=== PATIENT | female | born 1960 | race Caucasian/White ===

== ENCOUNTER → 2017-08-01 13:04 | Outpatient (CLI) | payer MEDICAID, SELFPAY ==
[2017-08-01 13:00] VITALS: BP 120/52; PULSE 57; RESP 18; TEMP 36.7; O2SAT 94
== END ==
PROVIDERS: Family Provider Family Medicine; PCP Family Medicine
DX: N18.5 Chronic kidney disease, stage 5 (principal); D63.1 Anemia in chronic kidney disease
CPT/HCPCS: 96401; J0885

== ENCOUNTER → 2017-08-08 12:39 | Outpatient (CLI) | payer MEDICAID, SELFPAY ==
[2017-07-25 12:59] VITALS: BMI 20.1
[2017-08-01 13:00] VITALS: BP 120/52
[2017-08-08 12:59] VITALS: BP 165/73; PULSE 78; RESP 24; TEMP 37.3; O2SAT 93; BMI 20.1
[2017-08-08 13:07] LABS: Absolute Lymphocyte Count 0.79 X10^3/ul (0.83-4.51); Absolute Neutrophil Count 6.5 X10^3/uL (2.0-7.7); Basophil# 0.06 X10^3/uL; Basophil% 0.7 % (0-1); Eosinophil# 0.38 X10^3/uL; Eosinophils% 4.7 % (0-5); Hematocrit 29.6 % (37-47); Hemoglobin 8.7 g/dl (12.0-15.0); Lymphocyte # 0.79 X10^3/ul (4.0); Lymphocyte % 9.8 % (19-41); Mean Corp Hgb Conc 29.4 g/gl (32-36); Mean Corpuscular Hgb 22.4 pg (27.0-32.0); Mean Corpuscular Volume 76.3 fL (81-99); Mean Platelet Vol. 8.5 fl (6.2-12.0); Monocyte# 0.38 X10^3/uL; Monocyte% 4.7 % (0-10); Neutrophil # 6.46 X10^3/uL (2.7-7.7); Neutrophil % 79.9 % (47-70); Platelet Count 472 K/mm3 (150-450); RBC Distribution Width CV 19.2 % (11.6-14.6); RBC Distribution Width SD 52.8 fl (35.1-43.9); Red Blood Count 3.88 M/mm3 (4.2-5.4); White Blood Count 8.1 K/mm3 (4.4-11.0)
[2017-08-08 13:09] LABS: POSITIVE COUNT NO; POSITIVE DIFFERENTIAL NO; POSITIVE MORPHOLOGY NO
[2017-08-08 13:28] LABS: Albumin, Serum 3.1 g/dL (3.2-5.0); BUN 73 mg/dL (7-18); BUN/Creat Ratio 21.4 RATIO (10-20); Calcium,Total 8.5 mg/dL (8.5-10.1); Chloride 112 mmol/L (98-107); Creatinine, Serum 3.41 mg/dL (0.55-1.02); EST Glomerular Filtration Rate 15 mL/min (>60); Est Glom Filt Rate - Afr Amer 18 mL/min (>60); Estimated Creatinine Clearance 13.07 ml/min; Ferritin 106 ng/mL (8-252); Glucose 192 mg/dL (74-106); Iron 17 ug/dL (50-170); Iron Binding Capacity,Total 312 ug/dL (250-450); PERCENT IRON SATURATION 5.4 % (15.0-55.0); Phosphorus 5.5 mg/dL (2.5-4.9); Potassium 5.5 mmol/L (3.5-5.1); Sodium Level 139 mmol/L (136-145)
[2017-08-09 08:46] LABS: PTHIN 63.4 pg/mL (18.4-80.1)
== END ==
PROVIDERS: Family Provider Family Medicine; PCP Family Medicine
DX: N18.5 Chronic kidney disease, stage 5 (principal); D63.1 Anemia in chronic kidney disease; N25.81 Secondary hyperparathyroidism of renal origin
CPT/HCPCS: 80069; 82728; 83540; 83550; 83970; 85025; 96372; J0885

== ENCOUNTER → 2017-08-15 12:47 | Outpatient (CLI) | payer MEDICAID, SELFPAY ==
[2017-08-08 12:59] VITALS: BP 165/73; BMI 20.1
[2017-08-15 12:58] VITALS: BP 122/52; PULSE 58; RESP 18; TEMP 36.4; O2SAT 93; BMI 19.5
== END ==
PROVIDERS: Family Provider Family Medicine; PCP Family Medicine
DX: N18.5 Chronic kidney disease, stage 5 (principal); D63.1 Anemia in chronic kidney disease; N25.81 Secondary hyperparathyroidism of renal origin
CPT/HCPCS: 96372; J0885

== ENCOUNTER → 2017-08-22 12:49 | Outpatient (CLI) | payer MEDICAID, SELFPAY ==
[2017-08-22 13:02] VITALS: BP 143/61; PULSE 68; RESP 16; TEMP 36.8
== END ==
PROVIDERS: Family Provider Family Medicine; PCP Family Medicine
DX: N18.5 Chronic kidney disease, stage 5 (principal); D63.1 Anemia in chronic kidney disease; N25.81 Secondary hyperparathyroidism of renal origin
CPT/HCPCS: 96372; J0885

== ENCOUNTER → 2017-08-29 11:42 | Outpatient (CLI) | payer MEDICAID, SELFPAY ==
[2017-08-29 10:32] VITALS: BP 135/61; PULSE 57; RESP 18; TEMP 36.1; O2SAT 97; BMI 19.8
== END ==
PROVIDERS: Family Provider Family Medicine; PCP Family Medicine
DX: N18.5 Chronic kidney disease, stage 5 (principal); D63.1 Anemia in chronic kidney disease; N25.81 Secondary hyperparathyroidism of renal origin
CPT/HCPCS: 96372; J0885

== ENCOUNTER → 2017-09-05 09:54 | Outpatient (CLI) | payer MEDICAID, SELFPAY ==
[2017-09-05 10:09] VITALS: BP 136/57; PULSE 62; RESP 18; TEMP 36.2; O2SAT 90
[2017-09-05 10:27] LABS: Absolute Neutrophil Count 4.7 X10^3/uL (2.0-7.7); Basophil# 0.04 X10^3/uL; Basophil% 0.7 % (0-1); Eosinophil# 0.36 X10^3/uL; Hematocrit 29.3 % (37-47); Hemoglobin 8.6 g/dl (12.0-15.0); Lymphocyte % 8.4 % (19-41); Mean Corp Hgb Conc 29.4 g/gl (32-36); Mean Corpuscular Hgb 21.7 pg (27.0-32.0); Mean Corpuscular Volume 73.8 fL (81-99); Mean Platelet Vol. 8.5 fl (6.2-12.0); Monocyte# 0.33 X10^3/uL; Monocyte% 5.5 % (0-10); Neutrophil # 4.73 X10^3/uL (2.7-7.7); Neutrophil % 79.2 % (47-70); POSITIVE COUNT NO; POSITIVE DIFFERENTIAL YES; Platelet Count 541 K/mm3 (150-450); RBC Distribution Width CV 21.2 % (11.6-14.6); RBC Distribution Width SD 56.5 fl (35.1-43.9); Red Blood Count 3.97 M/mm3 (4.2-5.4)
[2017-09-05 10:28] LABS: Differential Indicated SCAN CRITERIA MET; POSITIVE MORPHOLOGY YES
[2017-09-05 10:34] LABS: Albumin, Serum 2.9 g/dL (3.2-5.0); BUN 66 mg/dL (7-18); BUN/Creat Ratio 19.9 RATIO (10-20); Calcium,Total 8.1 mg/dL (8.5-10.1); Chloride 109 mmol/L (98-107); Creatinine, Serum 3.32 mg/dL (0.55-1.02); EST Glomerular Filtration Rate 15 mL/min (>60); Est Glom Filt Rate - Afr Amer 18 mL/min (>60); Ferritin 63 ng/mL (8-252); Glucose 196 mg/dL (74-106); Iron 20 ug/dL (50-170); Iron Binding Capacity,Total 315 ug/dL (250-450); PERCENT IRON SATURATION 6.3 % (15.0-55.0); Phosphorus 6.4 mg/dL (2.5-4.9); Potassium 5.3 mmol/L (3.5-5.1); Sodium Level 138 mmol/L (136-145)
[2017-09-05 10:50] LABS: Anisocytosis 2+; Hypochromasia 2+; Schistocytes 1+
== END ==
PROVIDERS: Family Provider Family Medicine; PCP Family Medicine; Visit Provider Internal Medicine Nephrology
DX: N18.5 Chronic kidney disease, stage 5 (principal); D63.1 Anemia in chronic kidney disease; N25.81 Secondary hyperparathyroidism of renal origin
CPT/HCPCS: 36415; 80069; 82728; 83540; 83550; 85025; 96372; J0885

== ENCOUNTER → 2017-09-12 10:51 | Outpatient (CLI) | payer MEDICAID, SELFPAY ==
[2017-09-12 10:54] VITALS: BP 128/59; PULSE 60; RESP 18; TEMP 36.3; O2SAT 91; BMI 19.5
== END ==
PROVIDERS: Family Provider Family Medicine; PCP Family Medicine; Visit Provider Family Medicine
DX: I12.0 Hypertensive chronic kidney disease with stage 5 chronic kidney disease or end stage renal disease (principal); N18.5 Chronic kidney disease, stage 5; D63.1 Anemia in chronic kidney disease; N25.81 Secondary hyperparathyroidism of renal origin
CPT/HCPCS: 96365; 96366; 96372; J0885; J1756; J7050; A4216

== ENCOUNTER → 2017-09-19 10:57 | Outpatient (CLI) | payer MEDICAID, SELFPAY ==
[2017-09-19 11:00] VITALS: BP 124/52; PULSE 61; RESP 16; TEMP 36.9; O2SAT 96; BMI 19.5
== END ==
PROVIDERS: Family Provider Family Medicine; PCP Family Medicine
DX: I12.0 Hypertensive chronic kidney disease with stage 5 chronic kidney disease or end stage renal disease (principal); N18.5 Chronic kidney disease, stage 5; D63.1 Anemia in chronic kidney disease; N25.81 Secondary hyperparathyroidism of renal origin
CPT/HCPCS: 96365; 96366; 82274; 96372; J0885; J1756; J7050; A4216

== ENCOUNTER → 2017-09-26 10:53 | Outpatient (CLI) | payer MEDICAID, SELFPAY ==
[2017-09-26 11:02] VITALS: BP 130/56; PULSE 55; RESP 18; TEMP 36.7; O2SAT 95; BMI 19.5
== END ==
PROVIDERS: Family Provider Family Medicine; PCP Family Medicine
DX: I12.0 Hypertensive chronic kidney disease with stage 5 chronic kidney disease or end stage renal disease (principal); N18.5 Chronic kidney disease, stage 5; D63.1 Anemia in chronic kidney disease; N25.81 Secondary hyperparathyroidism of renal origin
CPT/HCPCS: 96365; 96372; J0885; J1756; J7050; A4216

== ENCOUNTER → 2019-05-14 12:52 | Outpatient (CLI) | payer MEDICAID, SELFPAY ==
[2019-05-06 10:46] VITALS: BMI 20.1
--- NOTE | 2019-05-14 12:59 | VDUE_ITS ---
Reason For Study: ESRD Right Arm Left Arm Right Cephalic Vein at the wrist measures Left Cephalic Vein at the wrist measures 0.16 0.12 x 0.12 cm. x 0.18 cm. Right Cephalic Vein in the forearm measures Left Cephalic Vein in the forearm measures 0.14 x 0.15 cm. 0.21 x 0.22 cm. Right Cephalic Vein below antecub measures Left Cephalic Vein below antecub measures 0.23 0.20 x 0.23 cm. x 0.23 cm. Right Cephalic Vein above antecub measures Fistula noted in the left upper arm with a 0.24 x 0.24 cm. brachiocephalic connection. Right Cephalic Vein mid bicep measures 0.14 Basilic vein at origin measures 0.22 x 0.23 x 0.16 cm. cm. Right Cephalic Vein at the shoulder Basilic vein at bicep measures 0.22 x 0.22 cm. measures 0.19 x 0.20 cm. Basilic vein above antecub measures 0.15 x Right Basilic Vein at the origin measures 0.16 cm. 0.52 x 0.54 cm. Left brachial artery measures 0.48 x 0.43 cm Right Basilic Vein mid bicep measures 0.30 with a velocity of 197.6 cm/sec. x 0.32 cm. Left radial artery measures 0.16 x 0.16 cm Right Basilic Vein above antecub measures with a velocity of 74.3 cm/sec. 0.38 x 0.37 cm. Right brachial artery measures 0.34 x 0.35 cm with a velocity of 142.3 cm/sec. Right radial artery measures 0.15 x 0.17 cm witha velocity of 125 cm/sec. Interpretation Summary Borderline right upper extremity cephalic vein with dimensions as noted. Adequate right upper extremity basilic vein Adequate diameter bilateral brachial arteries Small bilateral radial arteries Small left cephalic vein of the forearm Mention made of left upper arm brachial cephalic fistula connection although color-flow or velocities not provided. Not able to assess patency. Borderline left upper arm basilic vein. Ordering Physician: Jeremi Baeza Referring Physician: Cornelia Osborne Performed By: Audrey De La Cruz RVT ?
== END ==
PROVIDERS: Family Provider Family Medicine; PCP Family Medicine; Referring Provider Student in an Organized Health Care Education/Training Program; Visit Provider Student in an Organized Health Care Education/Training Program
DX: N18.6 End stage renal disease (principal); T82.9XXA Unspecified complication of cardiac and vascular prosthetic device, implant and graft, initial encounter
CPT/HCPCS: 93970

== ENCOUNTER 2019-08-08 09:10 | Day surgery (SDC) | payer MEDICARE, MEDICAID, SELFPAY ==
[2019-06-13 06:09] VITALS: BMI 20.1
--- NOTE | 2019-08-06 03:57 | HP_ITS ---
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 Is patient in pain?: No Allergies Penicillins Adverse Reaction (Verified 08/06/19 14:45) Nausea/Vom/Diarrhea Medications Amlodipine [Norvasc] 10 mg PO DAILY 05/16/17 [History Confirmed 08/06/19] Carvedilol [Coreg] 12.5 mg PO BID 05/16/17 [History Confirmed 08/06/19] Insulin NPH Hum/Reg Insulin Hm [Relion Novolin 70-30 Vial] unit SQ BID 05/16/17 [History Confirmed 08/06/19] apixaban 2.5 mg tablet 2.5 mg PO BID 06/13/19 [History Confirmed 08/06/19] aspirin 81 mg tablet,delayed release 81 mg PO DAILY 06/13/19 [History Confirmed 08/06/19] atorvastatin 10 mg tablet 10 mg PO DAILY 06/13/19 [History Confirmed 08/06/19] hydralazine 50 mg tablet 50 mg PO BID tab 06/13/19 [History Confirmed 08/06/19] ipratropium 0.5 mg-albuterol 3 mg (2.5 mg base)/3 mL nebulization soln 3 ml INHALATION Q8H 06/13/19 [History Confirmed 08/06/19] omeprazole 20 mg capsule,delayed release 20 mg PO DAILY 06/13/19 [History Confirmed 08/06/19] sevelamer carbonate 800 mg tablet 800 mg PO BID tab 06/13/19 [History Confirmed 08/06/19] [facility] Medical History Problem with dialysis access (Acute) Diabetes (Acute) GERD (gastroesophageal reflux disease) (Acute) High cholesterol (Acute) Renal failure (Acute) COPD (chronic obstructive pulmonary disease) (Chronic) HTN (hypertension) (Chronic) Surgical History S/P arteriovenous (AV) fistula creation (Acute) S/P laparoscopic cholecystectomy (Acute) S/P tubal ligation (Acute) Family History Father Diabetes Hypertension Mother Diabetes Hypertension Social History Smoking Status: Current every day smoker alcohol intake: never HPI HPI HPI: LEIGH MALIK, is a 59 F who presents to the office today for HPI HPI Surgical H&P: Yes HPI: LEIGH MALIK, is a 59 F who presents to the office today for chronic renal failure. Patient denies ROS General General: No weight change, appetite, fatigue, colon cancer, breast cancer or weakness HEENT HEENT: No difficulty swallowing, eye injury, eye surgery, swollen glands or hoarseness Endo Endocrine: Yes diabetes mellitus; no thyroid disease, thyroid cancer, Hair loss, heat intolerance or cold intolerance Skin Skin: No rash or changing moles Breast Breast: No left breast lump, right breast lump, nipple discharge, breast pain, abnormal mammogram, abnormal US or breast enlargement Musc Musculoskeletal: Yes arthritis; no back problems, rheumatoid arthritis, gout or joint pain Cardio Cardiovascular: Yes high blood pressure; no murmur, pacemaker, heart disease, atrial fibrillation, heart attack, heart stent, palpitations, shortness of breat with exertion or chest pain Psych Psychiatric: No depression, anxiety or hearing voices Resp Respiratory: Yes shortness of breath, No sleep apnea, Yes cough, Yes COPD, No asthma, No emphysema, No wheezing Gastro Gastrointestinal: No abdominal pain, No nausea or vomiting, No diarrhea, No constipation, No blood in stool, No acid reflux, No hemorrhoids, No ulcers, No gallbladder problem, No black,tarry stools Jesse Hematologic: Yes blood thinners, No blood disorders, No bleeding, No anemia, No blood clots Neuro Neurologic: No system reviewed and no additional complaints, except as docu, No as per HPI, No abnormal walking, No abnormal hearing, No abnormal movements, No abnormal speech, No behavioral changes, No burning sensations, No confusion, No seizure-like activity, No unsteadiness, No dizziness, No localized weakness, No frequent falls, No headache(s), No lack of coordination, No loss of vision, No memory loss, No numbness, No other visual disturbances, No radiating pain, No restless legs, No sensory deficit, No fainting, No tingling, No tremor(s), No weakness, No other Exam Chest Breast Palpation: No nipple discharge Cardio Heart Sounds: no murmurs Date _ Laurel Womack PA-C
[2019-08-06 14:43] VITALS: BMI 19.8
[2019-08-08] VITALS (7 sets, daily range): BP systolic 127–157; BP diastolic 51–87; PULSE 79–88; RESP 16–18; TEMP 36.2–36.9; O2SAT 92–100; BMI 22.1
--- NOTE | 2019-08-08 09:45 | EKG12_ITS ---
Test Reason : PREOP Blood Pressure : / mmHG Vent. Rate : 088 BPM Atrial Rate : 088 BPM P-R Int : 150 ms QRS Dur : 082 ms QT Int : 374 ms P-R-T Axes : 032 046 026 degrees QTc Int : 452 ms Normal sinus rhythm Normal ECG No previous ECGs available Confirmed by KAYA HAJI, YURI ([id number]), clinical editor CAROLYN PEÑALOZA ([id number]) on 08/12/2019 11:13:14 AM Referred By: Shiv Berry Confirmed By:THOMPSON KIRKPATRICK MD
[2019-08-08 09:52] LABS: Hematocrit 40.6 % (37-47); Hemoglobin 12.7 g/dL (12.0-15.0); Mean Corp Hgb Conc 31.3 g/dL (32-36); Mean Corpuscular Hgb 30.2 pg (27.0-32.0); Mean Corpuscular Volume 96.7 fL (81-99); Mean Platelet Vol. 10.1 fl (6.2-12.0); Platelet Count 438 K/mm3 (150-450); RBC Distribution Width CV 18.2 % (11.6-14.6); RBC Distribution Width SD 64.2 fl (35.1-43.9); White Blood Count 14.6 K/mm3 (4.4-11.0)
[2019-08-08 10:04] LABS: Anion Gap 8 (5-15); BUN 48 mg/dL (7-18); BUN/Creat Ratio 7.9 RATIO (10-20); Chloride 95 mmol/L (98-107); Creatinine, Serum 6.06 mg/dL (0.55-1.02); EST Glomerular Filtration Rate 8 mL/min (>60); Est Glom Filt Rate - Afr Amer 9 mL/min (>60); Estimated Creatinine Clearance 7.18 ml/min; Glucose 312 mg/dL (74-106); Potassium 5.6 mmol/L (3.5-5.1); Sodium Level 131 mmol/L (136-145)
[2019-08-08] MEDS: 0.45% Normal Saline 1,000 ML 15 ML IV (10:10)
[2019-08-08 10:21] LABS: Bedside Glucose 291 mg/dL (70-110)
[2019-08-08] MEDS: Bupivacaine Mpf 0.5% 30 ML VIAL (10:24)
--- NOTE | 2019-08-08 10:47 | HP.PCM_ITS ---
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 Required: No Is patient in pain?: No Allergies Penicillins Adverse Reaction (Verified 08/06/19 14:45) Nausea/Vom/Diarrhea Medications Amlodipine [Norvasc] 10 mg PO DAILY 05/16/17 [History Confirmed 08/06/19] Carvedilol [Coreg] 12.5 mg PO BID 05/16/17 [History Confirmed 08/06/19] Insulin NPH Hum/Reg Insulin Hm [Relion Novolin 70-30 Vial] unit SQ BID 05/16/17 [History Confirmed 08/06/19] apixaban 2.5 mg tablet 2.5 mg PO BID 06/13/19 [History Confirmed 08/06/19] aspirin 81 mg tablet,delayed release 81 mg PO DAILY 06/13/19 [History Confirmed 08/06/19] atorvastatin 10 mg tablet 10 mg PO DAILY 06/13/19 [History Confirmed 08/06/19] hydralazine 50 mg tablet 50 mg PO BID tab 06/13/19 [History Confirmed 08/06/19] ipratropium 0.5 mg-albuterol 3 mg (2.5 mg base)/3 mL nebulization soln 3 ml INHALATION Q8H 06/13/19 [History Confirmed 08/06/19] omeprazole 20 mg capsule,delayed release 20 mg PO DAILY 06/13/19 [History Confirmed 08/06/19] sevelamer carbonate 800 mg tablet 800 mg PO BID tab 06/13/19 [History Confirmed 08/06/19] [facility] Medical History Problem with dialysis access (Acute) Diabetes (Acute) GERD (gastroesophageal reflux disease) (Acute) High cholesterol (Acute) Renal failure (Acute) COPD (chronic obstructive pulmonary disease) (Chronic) HTN (hypertension) (Chronic) Surgical History S/P arteriovenous (AV) fistula creation (Acute) S/P laparoscopic cholecystectomy (Acute) S/P tubal ligation (Acute) Family History Father Diabetes Hypertension Mother Diabetes Hypertension Social History (Updated 08/06/19 @ 16:39 by Laurel Womack PA-C) Smoking Status: Current every day smoker alcohol intake: never HPI HPI HPI: LEIGH MALIK, is a 59 F who presents to the office today for HPI HPI Surgical H&P: Yes HPI: LEIGH MALIK, is a 59 F who presents to the office today for chronic renal failure. Patient denies recent hospitalizations or illnesses. Patient is currently on dialysis via left upper extremity AV fistula on M, W, and F. Patient denies previous myocardial infraction, stroke, blood clots. She denies previous complications with moderate anesthesia. She is on Eliquis to assist with blood thinning. Patient is on oxygen via nasal canula. Patient's previous history per Dr. Berry: LEIGH MALIK is a 59 F who presents to the office today for surgical cons ultation regarding creation of arteriovenous access for hemodialysis. The patient was referred by Dr Jeremi Baeza and a written copy of my surgical consult recommendations will be returned to him. The patient states that she has had Dr. Reddy working on her in [facility] for 3 years. She states that about every month she requires revision or declotting of a left upper extremity fistula. The patient is on chronic Eliquis therapy now to assist. She is a chronic cigarette smoker. She is on chronic oxygen because of COPD. She is diabetic. She is referred for our consideration of treatment options regarding her chronically failing left upper arm fistula. [facility] [address] [place] [address] Saphenous Vein Mapping, Bilat 05/14/19 1306 MR#: [id number] Name:LEIGH MALIK [facility] #:[id number] : 1960 59From:Shiv Berry MD Attending Dr: Jeremi Baeza MDStatus: REG CLI Ordering Dr: Jeremi Baeza MDDate: 05/14/19 Location:CVSSex:FC Admitted: Reason For Study: ESRD Right Arm Left Arm Right Cephalic Vein at the wrist measures Left Cephalic Vein at the wrist measures 0.16 0.12 x 0.12 cm. x 0.18 cm. Right Cephalic Vein in the forearm measures Left Cephalic Vein in the forearm measures 0.14 x 0.15 cm. 0.21 x 0.22 cm. Right Cephalic Vein below antecub measures Left Cephalic Vein below antecub measures 0.23 0.20 x 0.23 cm. x 0.23 cm. Right Cephalic Vein above antecub measures Fistula noted in the left upper arm with a 0.24 x 0.24 cm. brachiocephalic connection. Right Cephalic Vein mid bicep measures 0.14 Basilic vein at origin measures 0.22 x 0.23 x 0.16 cm. cm. Right Cephalic Vein at the shoulder Basilic vein at bicep measures 0.22 x 0.22 cm. measures 0.19 x 0.20 cm. Basilic vein above antecub measures 0.15 x Right Basilic Vein at the origin measures 0.16 cm. 0.52 x 0.54 cm. Left brachial artery measures 0.48 x 0.43 cm Right Basilic Vein mid bicep measures 0.30 with a velocity of 197.6 cm/sec. x 0.32 cm. Left radial artery measures 0.16 x 0.16 cm Right Basilic Vein above antecub measures with a velocity of 74.3 cm/sec. 0.38 x 0.37 cm. Right brachial artery measures 0.34 x 0.35 cm with a velocity of 142.3 cm/sec. Right radial artery measures 0.15 x 0.17 cm witha velocity of 125 cm/sec. Interpretation Summary Borderline right upper extremity cephalic vein with dimensions as noted. Adequate right upper extremity basilic vein Adequate diameter bilateral brachial arteries Small bilateral radial arteries Small left cephalic vein of the forearm Mention made of left upper arm brachial cephalic fistula connection although color-flow or velocities not provided. Not able to assess patency. Borderline left upper arm basilic vein. Ordering Physician: Jeremi Baeza Referring Physician: Cornelia Osborne Performed By: Audrey De La Cruz RVT ? 05/14/19 1639 Date Shiv Berry MD ROS General General: No weight change, appetite, fatigue, colon cancer, breast cancer or weakness HEENT HEENT: No difficulty swallowing, eye injury, eye surgery, swollen glands or hoarseness Endo Endocrine: Yes diabetes mellitus; no thyroid disease, thyroid cancer, Hair loss, heat intolerance or cold intolerance Skin Skin: No rash or changing moles Breast Breast: No left breast lump, right breast lump, nipple discharge, breast pain, abnormal mammogram, abnormal US or breast enlargement Musc Musculoskeletal: Yes arthritis; no back problems, rheumatoid arthritis, gout or joint pain Cardio Cardiovascular: Yes high blood pressure; no murmur, pacemaker, heart disease, atrial fibrillation, heart attack, heart stent, palpitations, shortness of breat with exertion or chest pain Psych Psychiatric: No depression, anxiety or hearing voices Resp Respiratory: Yes shortness of breath, No sleep apnea, Yes cough, Yes COPD, No asthma, No emphysema, No wheezing Gastro Gastrointestinal: No abdominal pain, No nausea or vomiting, No diarrhea, No constipation, No blood in stool, No acid reflux, No hemorrhoids, No ulcers, No gallbladder problem, No black,tarry stools Jesse Hematologic: Yes blood thinners, No blood disorders, No bleeding, No anemia, No blood clots Neuro Neurologic: No system reviewed and no additional complaints, except as docu, No as per HPI, No abnormal walking, No abnormal hearing, No abnormal movements, No abnormal speech, No behavioral changes, No burning sensations, No confusion, No seizure-like activity, No unsteadiness, No dizziness, No localized weakness, No frequent falls, No headache(s), No lack of coordination, No loss of vision, No memory loss, No numbness, No other visual disturbances, No radiating pain, No restless legs, No sensory deficit, No fainting, No tingling, No tremor(s), No weakness, No other Exam Const General: cooperative, healthy appearing, comfortable, no acute distress HENAZ Head: normal to inspection Eyes General: appearance normal, both eyes and all related structures Neck Neck: normal visual inspection Neck mass: No Chest Breast Palpation: No nipple discharge Resp Effort & Inspection: normal respiratory effort Auscultation: clear to auscultation bilaterally, diminished lung sounds (bilateral lower lungs) Cardio Rate: regular rate Rhythm: regular rhythm Heart Sounds: no murmurs GI Inspection: normal to inspection Palpation: soft Auscultation: normal bowel sounds Skin General: no rashes or lesions noted Neuro General: no focal motor deficits, CN's II-XI intact bilaterally Extrem General: normal to inspection Other: Left upper extremity- good pulse, diminished bruit and thrill Psych Appearance: grossly normal Affect: normal affect Assessment & Plan Problems 1. Chronic renal failure, stage [address] Berry will plan to perform a stage I right upper extremity brachiobasilic AV fistula creation. Patient will hold her Eliquis 48 hours prior to the procedure. Procedure details, risks and benefits have been reviewed. Patient has had the opportunity to ask and have questions answered. Patient verbally understands and agrees with the plan. Coding Level of Care Code No Charge Diagnoses Chronic renal failure, stage 5 N18.5 Comment Update H&P 08/06/19 9052 <Electronically signed by Laurel benitez PA-C> Date _ Laurel Womack PA-C I have re-examined the patient. There are no clinical changes since date of exam.
--- NOTE | 2019-08-08 10:51 | DCINST_ITS ---
Discharge Diet: Renal Diet Discharge Activity: May Not Drive - for 2-3 days or while taking narcotic pain medications., May Shower, May Take a Tub Bath - in 5 days. Lifting Restrictions: 5 pounds Keep extremity elevated above heart level: - - Keep arm elevated above the heart level for 3 days. Additional Activity Instructions:: Exercise hand vigorously with a stress ball. Call your doctor if your incision/area has: Continuous Slow Oozing, Sudden Increased Bleeding - apply pressure and call your doctor., Increased Pain/ Swelling, Increased Redness, Foul Smelling Discharge Call your doctor if you observe: Fever of 101 or Higher Suture Line Care: Avoid Pulling/Pushing, Avoid Pinching/Bending Cleanse incision/area with: Keep Dressing Clean & Dry Additional Dressing/Incision Instructions:: Change or remove dressing in one day. May protect with a gauze bandaid. Allergies/Adverse Reactions: Allergies Penicillins Adverse Reaction (Verified 08/07/19 10:19) Nausea/Vom/Diarrhea Medications to take at Discharge Amlodipine [Norvasc] 10 mg PO DAILY 05/16/17 Carvedilol [Coreg (Beta Hal)] 12.5 mg PO BID 05/16/17 Insulin NPH Hum/Reg Insulin Hm [Relion Novolin 70-30 Vial] 10 unit SQ DAILY 05/16/17 apixaban 2.5 mg tablet 2.5 mg PO BID 06/13/19 aspirin 81 mg tablet,delayed release 81 mg PO DAILY 06/13/19 atorvastatin 10 mg tablet 10 mg PO DAILY 06/13/19 hydralazine 50 mg tablet 50 mg PO BID tab 06/13/19 ipratropium 0.5 mg-albuterol 3 mg (2.5 mg base)/3 mL nebulization soln 3 ml INHALATION Q8H PRN 06/13/19 omeprazole 20 mg capsule,delayed release 20 mg PO DAILY 06/13/19 sevelamer carbonate 800 mg tablet 800 mg PO BID tab 06/13/19 Folic Acid/Vit B Complex and C [Renal-Martin Tablet] 0.8 mg PO DAILY 08/07/19 Insulin NPH Hum/Reg Insulin Hm [Relion Novolin 70-30 Flexpen] 12 unit SQ QHS 08/07/19 Hydrocodone Bitart/Apap 5-325 [Bates 5MG-325MG] 1 tablet PO Q6H PRN PRN 2 Days #5 tablet 02/06/20 The following prescriptions were given: Hydrocodone Bitart/Apap 5-325 [Bates 5MG-325MG] 1 tablet PO Q6H PRN PRN 2 Days #5 tablet PRN Reason: Pain Transmission Status: Sent to [facility] Primary Care Physician: Care Physician,No Primary [Primary Care Provider] - Test Results: Test results from this visit will be discussed in further detail at your follow- up appointment, if applicable. Please Follow Up With: Shiv Berry MD - [phone] When: Call to make an appointment for suture removal and follow up about 10 days
[2019-08-08] MEDS: Heparin Injection (Vial) 5,000 UNIT/ML VIAL 5000 UNIT (11:16)
--- NOTE | 2019-08-08 12:05 | PCM.OPRPT ---
Problem List (1) Problem with dialysis access Status: Acute Qualifiers: Encounter type: subsequent encounter Qualified Code(s): T82.898D - Other specified complication of vascular prosthetic devices, implants and grafts, subsequent encounter Report of Operation Date of Procedure: 08/08/19 Pre-Operative Diagnosis: Problem with dialysis access Post-Operative Diagnosis: Same Surgery/Procedure Performed:: Right upper extremity stage I brachial to basilic arteriovenous hemodialysis fistula creation Description of Surgical Findings:: Timeout and informed consent was obtained. 59-year-old female was taken to the operating room placed upon the table she underwent monitored anesthesia care local anesthetic. The right extremity was sterilely prepped and draped. 1% lidocaine mixed 50-50 with 0.5% Marcaine was used as local anesthetic. A total of 8 cc was used. Ultrasound was used to map the course of the basilic vein and the brachial artery. Local was instilled and oblique incision was created close to the antecubital space sharp and blunt dissection was used to identify the basilic vein and the brachial artery and they were circumferentially dissected free and Vesseloops placed. The patient received 5000 units of heparin. The basilic vein was ligated distally with a Hemoclip and it was then spatulated to length. Peripheral vascular clamps were placed on the brachial artery and 11 blade was used to make an arteriotomy which was extended with Mims scissors. A end-to-side venous to arterial anastomosis was created with a running 7-0 Prolene. Prior to completion there is good antegrade retrograde flow. The anastomosis was completed hemostasis was intact there was good flow in the basilic vein. The wound was closed with deep layer of interrupted 3-0 Vicryl and then a running septic of 4-0 Monocryl. Steri-Strips Telfa OpSite dressing applied. Sponge and instrument and needle counts reported to be surgeon be correct. She had a 2+ palpable radial pulse at the completion no apparent complication. Specimens none. Drains none. Blood loss minimal. She was taken to the recovery area in satisfactory condition. Shiv Berry M.D., F.A.C.S. Type of Anesthesia:: Local MAC Anesthesiologist: Khanh Gastelum
[2019-08-08 12:25] LABS: Bedside Glucose 201 mg/dL (70-110)
== END 2019-08-08 14:50 | disposition home or self-care (01) ==
LOC: SDC 09:14 → AC 09:16
PROVIDERS: Referring Provider Surgery; Visit Provider Surgery
PROC: (CPT 36821; principal; 2019-08-08 10:55)
DX: T82.898A Other specified complication of vascular prosthetic devices, implants and grafts, initial encounter (principal); I12.0 Hypertensive chronic kidney disease with stage 5 chronic kidney disease or end stage renal disease; E11.22 Type 2 diabetes mellitus with diabetic chronic kidney disease; N18.5 Chronic kidney disease, stage 5; K21.9 Gastro-esophageal reflux disease without esophagitis; E78.00 Pure hypercholesterolemia, unspecified; J44.9 Chronic obstructive pulmonary disease, unspecified; F17.210 Nicotine dependence, cigarettes, uncomplicated; Z99.2 Dependence on renal dialysis; Z79.82 Long term (current) use of aspirin; Z79.4 Long term (current) use of insulin; Z79.01 Long term (current) use of anticoagulants; Z99.81 Dependence on supplemental oxygen
CPT/HCPCS: 01844; 36821; 36415; 80048; 82962; 85027; 93005; J7120

== ENCOUNTER → 2019-11-12 08:46 | Outpatient (CLI) | payer MEDICARE, MEDICAID, SELFPAY ==
[2019-11-07 08:38] VITALS: BMI 22.1
[2019-11-07 09:50] VITALS: BMI 19.5
--- NOTE | 2019-11-12 08:50 | AVDS_ITS ---
Reason For Study: Fistula malfunction RIGHT Right Brachial artery, 116.2/6.6 cm/sec. Right Brachial artery, 75.1 ml/min. Right prox anast, 1198/63.8 cm/sec. Right prox anast, 69 ml/min. Right prox graft, 328.1/161.2 cm/sec. Right prox graft, 115.3 ml/min. Right mid graft, 86/19.8 cm/sec. Right mid graft, 13.3 ml/min. Right distal graft, 13.1/3.5 cm/sec. Right distal graft, 7.5 ml/min. Right Outflow, 16.4/8.8 cm/sec. Right Outflow, 48 ml/min. Interpretation Summary Very low flow fistula with diminutive vein and severe stenosis proximal fistula close to the anastomosis. The proximal portion of the venous fistula diameter is diminutive. The upper arm portion of the fistula reaches a maximum of 0.47 cm diameter Ordering Physician: Laurel Womack Performed By: Audrey De La Cruz RVT
== END ==
PROVIDERS: Referring Provider Surgery; Visit Provider Surgery
DX: T82.898A Other specified complication of vascular prosthetic devices, implants and grafts, initial encounter (principal)
CPT/HCPCS: 93990

== ENCOUNTER 2019-11-19 05:40 | Day surgery (SDC) | payer MEDICARE, MEDICAID, SELFPAY ==
--- NOTE | 2019-11-07 09:22 | HP_ITS ---
Intake Vital Signs 11/07/19 Height 5 ft 11/07/19 Weight: 100 lb 11/07/19 BP 140/84 H 11/07/19 Blood Pressure Location Rt popliteal 11/07/19 Position Sitting 11/07/19 Respiration 16 11/07/19 Pulse Oximetry (%) 92 11/07/19 Oxygen Delivery Method nasal canula 11/07/19 Oxygen Flow Rate (L/min) 3 Intake Visit Reasons: RECHECK FISTULA Chief Complaint: venmariama wilkins Service Desk Director Required: No Is patient in pain?: No Allergies Penicillins Adverse Reaction (Verified 11/07/19 08:38) Nausea/Vom/Diarrhea Medications Amlodipine [Norvasc] 10 mg PO DAILY 05/16/17 [History Confirmed 11/07/19] Carvedilol [Coreg (Beta Hal)] 12.5 mg PO BID 05/16/17 [History Confirmed 11/07/19] Insulin NPH Hum/Reg Insulin Hm [Relion Novolin 70-30 Vial] 10 unit SQ DAILY 05/16/17 [History Confirmed 11/07/19] apixaban 2.5 mg tablet 2.5 mg PO BID 06/13/19 [History Confirmed 11/07/19] aspirin 81 mg tablet,delayed release 81 mg PO DAILY 06/13/19 [History Confirmed 11/07/19] atorvastatin 10 mg tablet 10 mg PO DAILY 06/13/19 [History Confirmed 11/07/19] hydralazine 50 mg tablet 50 mg PO BID tab 06/13/19 [History Confirmed 11/07/19] ipratropium 0.5 mg-albuterol 3 mg (2.5 mg base)/3 mL nebulization soln 3 ml INHALATION Q8H PRN 06/13/19 [History Confirmed 11/07/19] omeprazole 20 mg capsule,delayed release 20 mg PO DAILY 06/13/19 [History Confirmed 11/07/19] sevelamer carbonate 800 mg tablet 800 mg PO BID tab 06/13/19 [History Confirmed 11/07/19] Folic Acid/Vit B Complex and C [Renal-Martin Tablet] 0.8 mg PO DAILY 08/07/19 [History Confirmed 11/07/19] Insulin NPH Hum/Reg Insulin Hm [Relion Novolin 70-30 Flexpen] 12 unit SQ QHS 08/07/19 [History Confirmed 11/07/19] [facility] Medical History Problem with dialysis access (Acute) Diabetes (Acute) GERD (gastroesophageal reflux disease) (Acute) High cholesterol (Acute) Renal failure (Acute) COPD (chronic obstructive pulmonary disease) (Chronic) HTN (hypertension) (Chronic) Surgical History S/P arteriovenous (AV) fistula creation (Acute) S/P laparoscopic cholecystectomy (Acute) S/P tubal ligation (Acute) Family History Father Diabetes Hypertension Mother Diabetes Hypertension Social History (Updated 11/07/19 @ 09:22 by Laurel Womack PA-C) Smoking Status: Current every day smoker alcohol intake: never HPI HPI HPI: LEIGH MALIK, is a 59 F who presents to the office today for HPI HPI Surgical H&P: Yes HPI: LEIGH MALIK, is a 59 F who presents to the office today for an update history and physical and fistula check. Patient has a stage I right upper extremity basilic vein to brachial artery arteriovenous hemodialysis fistula creation on 08/08/[address] Berry. Dialysis center called yesterday noting they are unable to palpate the fistula. Patient has a history of COPD and is on oxygen via nasal canula. She is currently on Eliquis to assist with blood thinning due to history of clotting of her current left upper extremity fistula. She is on dialysis M, W, and F. She denies previous myocardial infarction, stroke. She denies previous complications with moderate anesthesia. Patient's previous history per Dr. Berry: LEIGH MALIK, is a 59 F who presents to the office today for surgical consultation regarding creation of arteriovenous access for hemodialysis. The patient was referred by Dr Jeremi Baeza and a written copy of my surgical consult recommendations will be returned to him. The patient states that she has had Dr. Reddy working on her in [facility] for 3 years. She states that about every month she requires revision or declotting of a left upper extremity fistula. The patient is on chronic Eliquis therapy now to assist. She is a chronic cigarette smoker. She is on chronic oxygen because of COPD. She is diabetic. She is referred for our consideration of treatment options regarding her chronically failing left upper arm fistula. ROS General General: No weight change, appetite, fatigue, colon cancer, breast cancer or weakness HEENT HEENT: No difficulty swallowing, eye injury, eye surgery, swollen glands or hoarseness Endo Endocrine: Yes diabetes mellitus; no thyroid disease, thyroid cancer, Hair loss, heat intolerance or cold intolerance Skin Skin: No rash or changing moles Breast Breast: No left breast lump, right breast lump, nipple discharge, breast pain, abnormal mammogram, abnormal US or breast enlargement Musc Musculoskeletal: Yes arthritis; no back problems, rheumatoid arthritis, gout or joint pain Cardio Cardiovascular: Yes high blood pressure; no murmur, pacemaker, heart disease, atrial fibrillation, heart attack, heart stent, palpitations, shortness of breat with exertion or chest pain Psych Psychiatric: No depression, anxiety or hearing voices Resp Respiratory: Yes shortness of breath, No sleep apnea, Yes cough, Yes COPD, No asthma, No emphysema, No wheezing Gastro Gastrointestinal: No abdominal pain, No nausea or vomiting, No diarrhea, No constipation, No blood in stool, No acid reflux, No hemorrhoids, No ulcers, No gallbladder problem, No black,tarry stools Jesse Hematologic: Yes blood thinners, No blood disorders, No bleeding, No anemia, No blood clots Neuro Neurologic: No weakness Exam Const General: cooperative, comfortable, no acute distress, frail appearing [facility] Head: normal to inspection Eyes General: appearance normal, both eyes and all related structures Chest Breast Palpation: No nipple discharge Resp Effort & Inspection: normal respiratory effort Auscultation: wheezes (right chest) Cardio Rate: regular rate Rhythm: regular rhythm Heart Sounds: no murmurs GI Inspection: normal to inspection Palpation: soft Auscultation: normal bowel sounds Skin Other: Left upper AV fistula- good pulse, bruit and thrill Right upper AV fistula- good pulse. Very weak bruit and no thrill. Neuro General: no focal motor deficits, CN's II-XI intact bilaterally Extrem General: normal to inspection Psych Appearance: grossly normal Affect: normal affect Assessment & Plan Problems 1. Problem with dialysis access, subsequent encounter T82.398P Plan Dr. Berry has also evaluated this patient. We will plan to obtain a duplex of the right upper extremity fistula. Assess for problem/narrowing at the anastomosis versus central narrowing. If the problem of concern is at the anastomosis, Dr. Berry will plan to continue with stage II transposition of the right upper extremity AV fistula. If the problem of concern is central, Dr. Berry will plan to perform a right upper extremity fistulogram. Patient will hold her Eliquis for 48 hours prior to either procedure. Patient is aware of holding her blood thinner. Patient has had the opportunity to ask and have questions answered. Patient verbally understands and agrees with the plan. Orders Orders: AV Fistula/Dialysis Graft Scan Today T82.898A Coding Level of Care Code No Charge Diagnoses Problem with dialysis access, subsequent encounter T82.898D ??Encounter type: subsequent encounter Comment Update H&P 11/07/19 0936 <Electronically signed by Laurel benitez PA-C> Date _ Laurel Womack PA-C
[2019-11-07 09:50] VITALS: BMI 19.5
[2019-11-18 14:05] LABS: Hematocrit 39.9 % (37-47); Hemoglobin 12.5 g/dL (12.0-15.0); Mean Corp Hgb Conc 31.3 g/dL (32-36); Mean Corpuscular Hgb 30.1 pg (27.0-32.0); Mean Corpuscular Volume 96.1 fL (81-99); Mean Platelet Vol. 10.4 fl (6.2-12.0); Platelet Count 506 K/mm3 (150-450); RBC Distribution Width CV 15.4 % (11.6-14.6); RBC Distribution Width SD 53.8 fl (35.1-43.9); Red Blood Count 4.15 M/mm3 (4.2-5.4); White Blood Count 16.3 K/mm3 (4.4-11.0)
[2019-11-18 14:27] LABS: Anion Gap 7 (5-15); BUN 19 mg/dL (7-18); BUN/Creat Ratio 4.8 RATIO (10-20); Calcium,Total 8.9 mg/dL (8.5-10.1); Chloride 96 mmol/L (98-107); Creatinine, Serum 3.99 mg/dL (0.55-1.02); EST Glomerular Filtration Rate 12 mL/min (>60); Est Glom Filt Rate - Afr Amer 15 mL/min (>60); Glucose 301 mg/dL (74-106); Potassium 4.7 mmol/L (3.5-5.1); Sodium Level 132 mmol/L (136-145)
[2019-11-19 06:11] VITALS: BP 121/63; PULSE 68; RESP 15; TEMP 36.6; O2SAT 100; BMI 22.2
--- NOTE | 2019-11-19 06:14 | HP.PCM_ITS ---
Problem List (1) Problem with dialysis access Status: Acute Qualifiers: History and Physical Date of Admission: 11/19/19 Intake Visit Reasons: RECHECK FISTULA Chief Complaint: mariama steele Director Radiation Oncology Required: No Is patient in pain?: No Allergies Penicillins Adverse Reaction (Verified 11/07/19 08:38) Nausea/Vom/Diarrhea Medications Amlodipine [Norvasc] 10 mg PO DAILY 05/16/17 [History Confirmed 11/07/19] Carvedilol [Coreg (Beta Hal)] 12.5 mg PO BID 05/16/17 [History Confirmed 11/07/19] Insulin NPH Hum/Reg Insulin Hm [Relion Novolin 70-30 Vial] 10 unit SQ DAILY 05/16/17 [History Confirmed 11/07/19] apixaban 2.5 mg tablet 2.5 mg PO BID 06/13/19 [History Confirmed 11/07/19] aspirin 81 mg tablet,delayed release 81 mg PO DAILY 06/13/19 [History Confirmed 11/07/19] atorvastatin 10 mg tablet 10 mg PO DAILY 06/13/19 [History Confirmed 11/07/19] hydralazine 50 mg tablet 50 mg PO BID tab 06/13/19 [History Confirmed 11/07/19] ipratropium 0.5 mg-albuterol 3 mg (2.5 mg base)/3 mL nebulization soln 3 ml INHALATION Q8H PRN 06/13/19 [History Confirmed 11/07/19] omeprazole 20 mg capsule,delayed release 20 mg PO DAILY 06/13/19 [History Confirmed 11/07/19] sevelamer carbonate 800 mg tablet 800 mg PO BID tab 06/13/19 [History Confirmed 11/07/19] Folic Acid/Vit B Complex and C [Renal-Martin Tablet] 0.8 mg PO DAILY 08/07/19 [History Confirmed 11/07/19] Insulin NPH Hum/Reg Insulin Hm [Relion Novolin 70-30 Flexpen] 12 unit SQ QHS 08/07/19 [History Confirmed 11/07/19] PFSH Medical History Problem with dialysis access (Acute) Diabetes (Acute) GERD (gastroesophageal reflux disease) (Acute) High cholesterol (Acute) Renal failure (Acute) COPD (chronic obstructive pulmonary disease) (Chronic) HTN (hypertension) (Chronic) Surgical History S/P arteriovenous (AV) fistula creation (Acute) S/P laparoscopic cholecystectomy (Acute) S/P tubal ligation (Acute) Family History Father Diabetes Hypertension Mother Diabetes Hypertension Social History (Updated 11/07/19 @ 09:22 by Laurel Womack PA-C) Smoking Status: Current every day smoker alcohol intake: never HPI HPI HPI: LEIGH MALIK, is a 59 F who presents to the office today for HPI HPI Surgical H&P: Yes HPI: LEIGH MALIK, is a 59 F who presents to the office today for an update history and physical and fistula check. Patient has a stage I right upper extremity basilic vein to brachial artery arteriovenous hemodialysis fistula creation on 08/08/[address] Berry. Dialysis center called yesterday noting they are unable to palpate the fistula. Patient has a history of COPD and is on oxygen via nasal canula. She is currently on Eliquis to assist with blood thinning due to history of clotting of her current left upper extremity fistula. She is on dialysis M, W, and F. She denies previous myocardial infarction, stroke. She denies previous complications with moderate anesthesia. Patient's previous history per Dr. Berry: LEIGH MALIK, is a 59 F who presents to the office today for surgical consultation regarding creation of arteriovenous access for hemodialysis. The patient was referred by Dr Jeremi Baeza and a written copy of my surgical consult recommendations will be returned to him. The patient states that she has had Dr. Reddy working on her in [facility] for 3 years. She states that about every month she requires revision or declotting of a left upper extremity fistula. The patient is on chronic Eliquis therapy now to assist. She is a chronic cigarette smoker. She is on chronic oxygen because of COPD. She is diabetic. She is referred for our consideration of treatment options regarding her chronically failing left upper arm fistula. ROS General General: No weight change, appetite, fatigue, colon cancer, breast cancer or weakness HEENT HEENT: No difficulty swallowing, eye injury, eye surgery, swollen glands or hoarseness Endo Endocrine: Yes diabetes mellitus; no thyroid disease, thyroid cancer, Hair loss, heat intolerance or cold intolerance Skin Skin: No rash or changing moles Breast Breast: No left breast lump, right breast lump, nipple discharge, breast pain, abnormal mammogram, abnormal US or breast enlargement Musc Musculoskeletal: Yes arthritis; no back problems, rheumatoid arthritis, gout or joint pain Cardio Cardiovascular: Yes high blood pressure; no murmur, pacemaker, heart disease, atrial fibrillation, heart attack, heart stent, palpitations, shortness of breat with exertion or chest pain Psych Psychiatric: No depression, anxiety or hearing voices Resp Respiratory: Yes shortness of breath, No sleep apnea, Yes cough, Yes COPD, No asthma, No emphysema, No wheezing Gastro Gastrointestinal: No abdominal pain, No nausea or vomiting, No diarrhea, No constipation, No blood in stool, No acid reflux, No hemorrhoids, No ulcers, No gallbladder problem, No black,tarry stools Jesse Hematologic: Yes blood thinners, No blood disorders, No bleeding, No anemia, No blood clots Neuro Neurologic: No weakness Exam Const General: cooperative, comfortable, no acute distress, frail appearing [facility] Head: normal to inspection Eyes General: appearance normal, both eyes and all related structures Chest Breast Palpation: No nipple discharge Resp Effort & Inspection: normal respiratory effort Auscultation: wheezes (right chest) Cardio Rate: regular rate Rhythm: regular rhythm Heart Sounds: no murmurs GI Inspection: normal to inspection Palpation: soft Auscultation: normal bowel sounds Skin Other: Left upper AV fistula- good pulse, bruit and thrill Right upper AV fistula- good pulse. Very weak bruit and no thrill. Neuro General: no focal motor deficits, CN's II-XI intact bilaterally Extrem General: normal to inspection Psych Appearance: grossly normal Affect: normal affect Assessment & Plan Problems 1. Problem with dialysis access, subsequent encounter T81.501D Plan Dr. Berry has also evaluated this patient. We will plan to obtain a duplex of the right upper extremity fistula. Assess for problem/narrowing at the anastomosis versus central narrowing. If the problem of concern is at the anasto mosis, Dr. Berry will plan to continue with stage II transposition of the right upper extremity AV fistula. If the problem of concern is central, Dr. Berry will plan to perform a right upper extremity fistulogram. Patient will hold her Eliquis for 48 hours prior to either procedure. Patient is aware of holding her blood thinner. Patient has had the opportunity to ask and have questions answered. Patient verbally understands and agrees with the plan. Orders Orders: AV Fistula/Dialysis Graft Scan Today T82.898A Coding Level of Care Code No Charge Diagnoses Problem with dialysis access, subsequent encounter T82.898D ??Encounter type: subsequent encounter Comment Update H&P 11/07/19 8131 <Electronically signed by Laurel benitez PA-C> Date _ Laurel Womack PA-C The patient has tested negative for COVID-19 She is aware that she is presenting during the COVID-19 pandemic. She is aware of the increased risk of surgical intervention. She is aware that the [facility] administration has suggested a low local incidence of COVID- 19. She has had an opportunity to ask and have questions answered and would like to proceed with surgery. I have re-examined the patient. There are no clinical changes since date of exam. She was found on duplex imaging to have stenosis at the very proximal portion of the fistula adjacent to the anastomosis with unfortunately a generally small vein throughout. It is hoped that transposition will facilitate maturation. Shiv Berry M.D., F.A.C.S.
[2019-11-19 06:36] LABS: Bedside Glucose 204 mg/dL (70-110)
[2019-11-19] MEDS: 0.45% Normal Saline 1,000 ML 30 ML IV (06:52)
--- NOTE | 2019-11-19 07:29 | PCM.DC.FIST ---
Discharge Diet: Renal Diet Discharge Activity: May Not Drive - for 2-3 days or while taking narcotic pain medications., May Shower, May Take a Tub Bath - in 5 days. Lifting Restrictions: 5 pounds Keep extremity elevated above heart level: - - Keep arm elevated above the heart level for 3 days. Additional Activity Instructions:: Exercise hand vigorously with a stress ball. Call your doctor if your incision/area has: Continuous Slow Oozing, Sudden Increased Bleeding - apply pressure and call your doctor., Increased Pain/ Swelling, Increased Redness, Foul Smelling Discharge Call your doctor if you observe: Fever of 101 or Higher Suture Line Care: Avoid Pulling/Pushing, Avoid Pinching/Bending Cleanse incision/area with: Keep Dressing Clean & Dry Additional Dressing/Incision Instructions:: You may remove your dressing in 2 to 3 days. This includes the elastic wrap and soft roll. Leave the Steri-Strips in place for another week. Exercise your hand with a stress ball to help with maturation. Elevate your arm to limit swelling please Allergies/Adverse Reactions: Allergies Penicillins Adverse Reaction (Verified 11/19/19 05:56) Nausea/Vom/Diarrhea Medications to take at Discharge Amlodipine [Norvasc] 10 mg PO DAILY 05/16/17 Carvedilol [Coreg (Beta Hal)] 12.5 mg PO BID 05/16/17 Insulin NPH Hum/Reg Insulin Hm [Relion Novolin 70-30 Vial] 10 unit SQ DAILY 05/16/17 apixaban 2.5 mg tablet 2.5 mg PO BID 06/13/19 aspirin 81 mg tablet,delayed release 81 mg PO DAILY 06/13/19 atorvastatin 10 mg tablet 10 mg PO DAILY 06/13/19 hydralazine 50 mg tablet 50 mg PO BID tab 06/13/19 ipratropium 0.5 mg-albuterol 3 mg (2.5 mg base)/3 mL nebulization soln 3 ml INHALATION Q8H PRN 06/13/19 omeprazole 20 mg capsule,delayed release 20 mg PO DAILY 06/13/19 sevelamer carbonate 800 mg tablet 800 mg PO BID tab 06/13/19 Folic Acid/Vit B Complex and C [Renal-Martin Tablet] 0.8 mg PO DAILY 08/07/19 Insulin NPH Hum/Reg Insulin Hm [Relion Novolin 70-30 Flexpen] 12 unit SQ QHS 08/07/19 Hydrocodone Bitart/Apap 5-325 [[place] 5MG-325MG] 1 tab PO Q6H PRN PRN 2 Days #6 tab 11/19/19 The following prescriptions were given: Hydrocodone Bitart/Apap 5-325 [[place] 5MG-325MG] 1 tab PO Q6H PRN PRN 2 Days #6 tab PRN Reason: Pain Transmission Status: Received by [id number] Primary Care Physician: Care Physician,No Primary [Primary Care Provider] - Test Results: Test results from this visit will be discussed in further detail at your follow-up appointment, if applicable. Please Follow Up With: Shiv Berry MD - [phone] When: Call to make an appointment for suture removal and follow up in 7-10days.
[2019-11-19] MEDS: Bupivacaine Mpf 0.5% 30 ML VIAL (07:41)
[2019-11-19] MEDS: Heparin Injection (Vial) 5,000 UNIT/ML VIAL 5000 UNIT (07:41)
--- NOTE | 2019-11-19 09:19 | OP.PCM_ITS ---
Problem List (1) Problem with dialysis access Status: Acute Qualifiers: Encounter type: initial encounter Qualified Code(s): T82.898A - Other specified complication of vascular prosthetic devices, implants and grafts, initial encounter Report of Operation Date of Procedure: 11/19/19 Pre-Operative Diagnosis: Failure to mature right upper extremity stage I brachiobasilic arteriovenous hemodialysis fistula Post-Operative Diagnosis: Same Surgery/Procedure Performed:: Stage II transposition right upper extremity basilic vein to brachial artery AV fistula creation Description of Surgical Findings:: Timeout and informed consent was obtained. 59-year-old female was taken the operating placement table underwent monitored anesthesia care. The right extremity sterilely prepped and draped. 1% lidocaine mixed 50-50 with 0.5% Marcaine was used as local anesthetic. A total of 46 cc was used. Additionally 0.5% lidocaine was used as a local anesthetic and 10 cc was used. Ultrasound was used to map the course of the right upper arm basilic vein. Local was instilled. A longitudinal incision was made up the medial aspect of the right upper arm. Tedious sharp and blunt dissection was used to identify the basilic vein. It was dissected free. Side branches were secured with 3-0 Vicryl ligatures and hemoclips. The dissection was formed up to the axillary area. Having achieved that the vein was measured. In appropriate position sharp blunt dissection was used to identify the brachial artery and the distal right upper arm. It was circumferentially dissected free. Then local was instilled and a subcutaneous curved tunneler was placed from the more distal arm to the shoulder area. The vein was ligated distally it was irrigated with saline and had good dimensions to it it was then tunneled underneath the skin superficially lateral to the harvest incision. The patient received 5000 units of heparin. Periphera l vascular clamps were placed on the brachial artery and 11 blade was used to make an arteriotomy which was extended with Mims scissors. The vein had been carefully selected at a branch point to allow for a larger area of spatulation. A end-to-side anastomosis was created with running 7-0 Prolene. Prior to completion with good antegrade retrograde flow. The anastomosis was completed and was immediately intact. There was a good pulse and Doppler bruit. Good positional lie. The deep tissue was approximately the multiple interrupted 3-0 Vicryl's. The skin edges approximated running septic or 4-0 Monocryl. Steri- Strips Telfa soft roll Pernell wrap applied. Sponge and instrument and needle counts were reported the surgeon to be correct. Blood loss was approximately 50 cc. She tolerated the procedure well the hand was viable she was taken to the recovery room in satisfactory condition without apparent complication. Specimens none. Drains none. Blood loss 50 cc. Shiv Berry M.D., F.A.C.S. Type of Anesthesia:: Local MAC Anesthesiologist: Khanh Gastelum
[2019-11-19 09:47] VITALS: BP 121/63; BP 132/66; PULSE 73; RESP 16; TEMP 36.6; O2SAT 94
[2019-11-19 09:52] VITALS: BP 121/63; BP 129/67; PULSE 74; RESP 16; O2SAT 100
[2019-11-19 09:57] VITALS: BP 121/63; BP 121/66; PULSE 73; RESP 16; O2SAT 100
[2019-11-19 10:02] VITALS: BP 121/63; BP 126/66; PULSE 71; RESP 16; TEMP 36.8; O2SAT 100
[2019-11-19 10:53] VITALS: BP 113/55; BP 121/63; PULSE 67; RESP 18; TEMP 36.9; O2SAT 100
== END 2019-11-19 10:55 | disposition home or self-care (01) ==
LOC: SDC 05:41 → AC 05:41
PROVIDERS: Referring Provider Surgery; Visit Provider Surgery
PROC: (CPT 36819; principal; 2019-11-19 07:15)
DX: T82.898A Other specified complication of vascular prosthetic devices, implants and grafts, initial encounter (principal); I12.0 Hypertensive chronic kidney disease with stage 5 chronic kidney disease or end stage renal disease; E11.22 Type 2 diabetes mellitus with diabetic chronic kidney disease; N18.5 Chronic kidney disease, stage 5; J44.9 Chronic obstructive pulmonary disease, unspecified; K21.9 Gastro-esophageal reflux disease without esophagitis; E78.00 Pure hypercholesterolemia, unspecified; F17.210 Nicotine dependence, cigarettes, uncomplicated; Z99.2 Dependence on renal dialysis; Z79.01 Long term (current) use of anticoagulants; Z79.4 Long term (current) use of insulin; Z99.81 Dependence on supplemental oxygen; Z79.82 Long term (current) use of aspirin; Z79.899 Other long term (current) drug therapy; Z11.59 Encounter for screening for other viral diseases
CPT/HCPCS: 36819; 36415; 80048; 82962; 85027; 87635; G2023; U0002

== ENCOUNTER → 2020-01-23 09:52 | Outpatient (CLI) | payer MEDICARE, MEDICAID, SELFPAY ==
--- NOTE | 2020-01-23 09:53 | AVDS_ITS ---
Reason For Study: Problem with access RIGHT Right Brachial artery, 148 cm/sec. Right Brachial artery, 87.9 ml/min. Right prox anast, 226.4/118.2 cm/sec. Right prox anast, 704.6 ml/min. Right prox graft, directly distal to anast, 304.5/118.8 cm/sec. Right prox graft, directly distal to anast, 1860 ml/min. Right prox graft, 115.4/43 cm/sec. Right prox graft, 590.5 ml/min. Right mid graft, 83.3/37.6 cm/sec. Right mid graft, 446 ml/min. Right distal graft, 112.5/57.7 cm/sec. Right distal graft, 577.9 ml/min. Right Outflow, 122/73.7 cm/sec. Right Outflow, 835 ml/min. Interpretation Summary Right brachial to basilic arterovenous fistula with widely patent anastomosis At the anastomosis volume flow is 704.6 mm/min. In the proximal fistula the flow rate is 1860 mm/min. In the proximal graft 590 mm/min in the mid graft 446 mm/min and in the distal graft 577 mm/min. The outflow has flow of 835 mm/min The diameter of the fistula, and depth positioning of the fistula and flow volumes are all within normal limits. Ordering Physician: Shiv Berry Referring Physician: Ginna Pineda Performed By: Audrey De La Cruz RVT
== END ==
PROVIDERS: PCP Student in an Organized Health Care Education/Training Program; Referring Provider Surgery; Visit Provider Surgery
DX: T82.898A Other specified complication of vascular prosthetic devices, implants and grafts, initial encounter (principal)
CPT/HCPCS: 93990

== ENCOUNTER 2020-06-11 16:17 | Inpatient (IN) | payer MEDICARE, MEDICAID, SELFPAY ==
[2020-02-20 07:08] VITALS: BMI 22.2
[2020-06-11] VITALS (18 sets, daily range): BP systolic 75–118; BP diastolic 23–65; PULSE 56–78; RESP 20–38; TEMP 35–36.3; O2SAT 9–100; BMI 22.3
--- NOTE | 2020-06-11 16:23 | PCM.HP.STD ---
Problem List (1) ESRD (end stage renal disease) on dialysis Status: Acute (2) Hypotension Status: Acute Qualifiers: Hypotension type: unspecified hypotension type Qualified Code(s): I95.9 - Hypotension, unspecified (3) Severe anemia Status: Acute (4) GI bleed Status: Acute Qualifiers: GI bleed type/associated pathology: melena Qualified Code(s): K92.1 - Melena History of Present Illness Date of Admission: 06/11/20 Chief Complaint: Severe anemia, blood loss anemia The patient is a 60 year old F with past medical history of ESRD on hemodialysis, hypertension, GERD comes in as a direct admit from [facility] with severe anemia and melena stools. Patient admits to having had melena stools ongoing for about 1 week. She is on aspirin and Eliquis. She has been feeling unwell and missed her dialysis yesterday. She complains of severe nausea and has vomited, feels very fatigued. She denies any abdominal pain. No hematemesis or hematochezia. Denied any chest pain but admits to lightheadedness. Vitals in [facility] were reported as stable with systolic in the 120s. She did require 250 mls of normal saline bolus for systolic of 100 which kept her blood pressures in the 120. Melena stools were reported with no bowel movements during her stay. On arrival to the PCU, her temperature was 90 7.2F, heart rate 75, blood pressure 85/34, speech was 22, SPO2 was 94% on 6 L. Patient is usually on 3 L of oxygen at home. He admits to feeling unwell and had a has also been unwell. A rapid antigen test done in the referring hospital was negative. Her RBC count 14.2, hemoglobin 5.6, platelet count 402, potassium 4 2, calcium 6.5, chloride 108, BUN 107, creatinine 8.79. COVID-19 PCR was negative. Past Medical History Medical History: Medical History (Last Reviewed 01/09/20 @ 09:17 by Alisha Her) Problem with dialysis access (Acute) T82.898A Diabetes E11.9 GERD (gastroesophageal reflux disease) K21.9 High cholesterol E78.00 Renal failure N19 COPD (chronic obstructive pulmonary disease) J44.9 HTN (hypertension) I10 Allergies Penicillins Adverse Reaction (Verified 01/09/20 09:17) Nausea/Vom/Diarrhea Home Medications: Ambulatory Orders Medication Instructions Recorded Amlodipine [Norvasc] 10 mg PO DAILY 05/16/17 Carvedilol [Coreg (Beta Hal)] 12.5 mg PO BID 05/16/17 apixaban 2.5 mg tablet 2.5 mg PO BID 06/13/19 aspirin 81 mg tablet,delayed 81 mg PO DAILY 06/13/19 release atorvastatin 10 mg tablet 10 mg PO DAILY 06/13/19 hydralazine 50 mg tablet 50 mg PO TID tab 06/13/19 omeprazole 20 mg capsule,delayed 20 mg PO DAILY 06/13/19 release sevelamer carbonate 800 mg tablet 800 mg PO TIDCM tab 06/13/19 Folic Acid/Vit B Complex and C 0.8 mg PO DAILY 08/07/19 [Renal-Martin Tablet] Insulin Aspart [Novolog Flexpen] 8 units SQ DINNER 06/11/20 Insulin Aspart [Novolog Flexpen] 15 units SQ BREAKFAST 06/11/20 Surgical History: Surgical History (Last Reviewed 01/09/20 @ 09:17 by Alisha Her) S/P arteriovenous (AV) fistula creation Z98.890 S/P laparoscopic cholecystectomy Z90.49 S/P tubal ligation Z98.51 Surgical History: cholecystectomy - Tubal ligation, - - status post tubal ligation Psychiatric History: No pertinent psych hx OPERATOR RECEPTIONIST History: No pertinent OPERATOR RECEPTIONIST history Lives: Spouse/ Significant Other Smoking Status: Current every day smoker Tobacco Use: Non-smoker Alcohol: None Review of Systems Constitutional: Reports: Anorexia, Chills, Malaise, Weakness, Fatigue. Denies: Fever Eyes: Denies: Blurred vision, Cataracts, Conjunctivae Inflammation, Pain, Redness, Vision Change HEENT: Denies: Difficulty Hearing, Difficulty Swallowing, Head Aches, Hearing Changes Cardiovascular: Reports: Light Headedness. Denies: Chest Pain, Claudication, Chest Pressure, Orthopnea, Palpitations, Paroxysmal Noc. Dyspnea, Syncope Respiratory: Reports: Shortness of Breath, Shortness of breath at rest, Shortness of breath upon exertion. Denies: Cough, Hemoptysis Gastrointestinal: Reports: Nausea, Melena, Vomiting. Denies: Abdominal Pain, Constipation, Hematemesis, Hematochezia Genitourinary: Denies: Dysuria, Frequency, Incontinence, Nocturia Gynecological: Denies: Breast symptoms, Excessively long or heavy periods Musculoskeletal: Denies: Arm Pain, Back Pain Neurological: Denies: Difficulty swallowing, Focal weakness Psychiatric: Denies: Homicidal Ideations, Suicidal Ideations VTE Information - Inpt Only VTE Present on Admission: No VTE Pharm Prophylaxis ordered?: Yes Patient Problems: Active and Suspected Problems (Last Reviewed 01/09/20 @ 09:17 by Alisha Her) GI bleed (Acute) ESRD (end stage renal disease) on dialysis (Acute) Hypotension (Acute) Severe anemia (Acute) - Physical Exam Vitals/I&O's: Vital Signs Temp Pulse Resp BP Pulse Ox 97.2 F L 75 22 H 85/34 L 94 06/11/20 16:21 06/11/20 16:21 06/11/20 16:21 06/11/20 16:21 06/11/20 16:21 Oxygen Flow Rate (L/min) 6 Oxygen Delivery Method Nasal Cannula Weight: 51.8 kg Body Mass Index (BMI) 22.3 General: Alert, Oriented x3, Cooperative, - - appears frail, restless, on 6 L of oxygen, very pale, HEENT: Atraumatic, PERRLA, EOMI, Normocephalic Oral: Dry Mucosa - not jaundiced Neck: Supple Lungs: Diminished Cardiovascular: Regular rate, Regular Rhythm, Normal S1, Normal S2, Murmur - 3/6 holosystolic murmur,, - - fistula on the RUE with bruit, LUE fistula non-functioning Abdomen: Bowel Sounds Present, Soft, Non Tender, Non-Distended - , nonfunctioning, No Hepato-splenomegaly Extremities: No edema Skin: No rashes Musculoskeletal: No Tenderness to Palpation of Joints or Extremities Lymphatic: No Cervical, Supraclavicular, or Inguinal Adenopathy Neurological: Cranial nerves II-XII grossly intact, Neuro grossly intact Psych/Mental Status: Normal Affect, Appropriate Current Medications Sodium Chloride () 500 mls @ 15 mls/hr IV PRN PRN PRN Reason: Blood Transfusion Sodium Chloride () 250 mls @ 15 mls/hr IV .[id number] PRN PRN Reason: Saline Flush Sodium Chloride () 250 mls @ 15 mls/hr IV .[id number] PRN PRN Reason: Additional IVPB Infusion Sodium Chloride (0.9% Saline Lock 10 Ml Syringe) 10 - 40 ml IV UD PRN PRN Reason: SALINE FLUSH Assessment/Plan All Active Problems (Last Reviewed 01/09/20 @ 09:17 by Alisha Her) GI bleed (Acute) ESRD (end stage renal disease) on dialysis (Acute) Hypotension (Acute) Severe anemia (Acute) Problem with dialysis access (Acute) 1. Acute GI bleed, likely upper GI bleed in a patient who presents with melena Patient is on aspirin and Eliquis that has been held Started patient on IV PPI, general surgery consulted, EGD planned for a.m. 2. Hypotension/shock likely secondary to blood loss from acute GI bleed Patient had 2 large bowel movements -lorraine/hematochezia Currently being resuscitated with packed RBCs, IV fluids We will continue to monitor blood pressure Hold antihypertensives Critical care consult 3. Acute blood loss anemia, patient was admitted with hemoglobin of 5.6 Hemoglobin in [facility] was 6.1. No blood products was given Currently being transfused 4 units of packed RBC in the light of 2 large bowel movement of melena/hematochezia 4. Hyperkalemia secondary to missed dialysis Admitting potassium is 6.5 Patient is being dialyzed currently We will repeat BMP after blood transfusions 5. ESRD on hemodialysis?Monday?Monday?Monday Patient missed dialysis on Monday Nephrology consulted; currently being dialyzed 6. Acute on chronic hypoxic respiratory insufficiency secondary to pneumonia/severe anemia COVID-19 PCR was negative Patient is on 3 L of oxygen at home Currently on 6 L of oxygen, will continue to wean off for SPO2 more than 94% 7. Pneumonia, chest x-ray shows mid left lung opacity and atelectasis or infiltrate in the left lung base with small effusion We will start patient on Levaquin 8. Hypertension, now hypotensive We will continue to monitor blood pressures 9. History of difficulties with AV fistula, occluded right upper extremity AV fistula Follows with Dr. Berry in the outpatient Patient is on Plavix and aspirin 10. DVT prophylaxis with SCDs 11. CODE STATUS?full code I discussed goals of care with patient. I went on to explain in details the various types of CODE STATUS-full code, DNR CCA, DNR CC. Patient wanted everything done for her. She chose full code. Time spent discussing CODE STATUS 18 minutes Inpatient E&M: 42628 Init Hosp L3 Procedures: 27582 Advncd Care Plan 30 Min
--- NOTE | 2020-06-11 16:55 | RAD_ITS ---
STUDY: X-RAY CHEST REASON FOR EXAM: Female, 60 years old. SOB TECHNIQUE: Single AP portable view of the chest. COMPARISON: None. FINDINGS: A large bore venous catheter is seen running from the right atrium through the left subclavian vein and into the left arm. Normal lung volumes. Right lung is clear. Mild hazy density of the mid left lung and opacification also in the left lung base. Possible small left pleural effusion. There is mild cardiac enlargement. Normal mediastinum and camille. Normal visualized pulmonary arteries. There is atherosclerotic calcification of the aortic arch with tortuosity. Normal visualized thoracic spine. Normal visualized ribs, clavicles, and shoulders. There is no demonstrated abnormality of the visualized soft tissue structures of the upper abdomen. RAD/Chest 1 View (Portable) IMPRESSION: Poorly defined pulmonary opacity of the mid left lung and atelectasis or infiltrate in the left lung base with small effusion. Pneumonic infiltrates are possible. Electronically Signed: Sukhdeep Corbin MD at 18:52 EST , Service support ,
[2020-06-11 17:29] LABS: Absolute Neutrophil Count 12.3 X10^3/uL (2.0-7.7); Basophil# 0.06 X10^3/uL; Basophil% 0.4 % (0-1); Eosinophil# 0.01 X10^3/uL; Eosinophils% 0.1 % (0-5); Hematocrit 19.5 % (37-47); Lymphocyte % 8.5 % (19-41); Mean Corp Hgb Conc 28.7 g/dL (32-36); Mean Corpuscular Hgb 27.2 pg (27.0-32.0); Mean Corpuscular Volume 94.7 fL (81-99); Mean Platelet Vol. 10.3 fl (6.2-12.0); Monocyte# 0.47 X10^3/uL; Monocyte% 3.3 % (0-10); NRBC Flagged by Analyzer 0 % (0-5); Neutrophil # 12.33 X10^3/uL (2.7-7.7); Neutrophil % 86.9 % (47-70); POSITIVE COUNT YES; Platelet Count 402 K/mm3 (150-450); RBC Distribution Width CV 17.9 % (11.6-14.6); RBC Distribution Width SD 59.5 fl (35.1-43.9); Red Blood Count 2.06 M/mm3 (4.2-5.4); White Blood Count 14.2 K/mm3 (4.4-11.0)
[2020-06-11 18:01] LABS: ALB/GLOB Ratio 0.7 RATIO (0.9-2.4); AST(SGOT) 11 U/L (15-37); Alanine Aminotransfer ALT/SGPT 16 U/L (13-56); Albumin, Serum 2.6 g/dL (3.2-5.0); Alkaline Phosphatase 80 U/L (45-117); Anion Gap 11 (5-15); BUN 107 mg/dL (7-18); BUN/Creat Ratio 12.2 RATIO (10-20); Calcium,Total 8.1 mg/dL (8.5-10.1); Chloride 108 mmol/L (98-107); Creatinine, Serum 8.79 mg/dL (0.55-1.02); EST Glomerular Filtration Rate 5 mL/min (>60); Est Glom Filt Rate - Afr Amer 6 mL/min (>60); Estimated Creatinine Clearance 4.89 ml/min; Globulin 3.8 g/dL (2.2-4.2); Glucose 191 mg/dL (74-106); Potassium 6.5 mmol/L (3.5-5.1); Protein, Total 6.4 g/dL (6.4-8.2); Sodium Level 140 mmol/L (136-145)
--- NOTE | 2020-06-11 18:07 | PCM.CONS.GEN ---
Problem List (1) GI bleed Status: Acute Qualifiers: GI bleed type/associated pathology: melena Qualified Code(s): K92.1 - Melena Reason for Consult Date of Consultation: 06/11/20 Reason for Consultation: GI bleed History of Present Illness: The patient is a 60 year old F admitted for GI bleeding. The patient reports that she started having black stools 3 days ago. She is not having any abdominal pain or nausea or vomiting. She is also feeling short of breath. She says that she did have an EGD at another hospital years ago for anemia. She is on a blood thinner due to her dialysis access as well as aspirin. She has omeprazole at home medication on her home med list and believes she is taking it. Past Medical History Medical History: Medical History (Last Reviewed 01/09/20 @ 09:17 by Alisha Her) Problem with dialysis access (Acute) T82.898A Diabetes E11.9 GERD (gastroesophageal reflux disease) K21.9 High cholesterol E78.00 Renal failure N19 COPD (chronic obstructive pulmonary disease) J44.9 HTN (hypertension) I10 Allergies Penicillins Adverse Reaction (Verified 01/09/20 09:17) Nausea/Vom/Diarrhea Home Medications: Ambulatory Orders Medication Instructions Recorded Amlodipine [Norvasc] 10 mg PO DAILY 05/16/17 Carvedilol [Coreg (Beta Hal)] 12.5 mg PO BID 05/16/17 apixaban 2.5 mg tablet 2.5 mg PO BID 06/13/19 aspirin 81 mg tablet,delayed 81 mg PO DAILY 06/13/19 release atorvastatin 10 mg tablet 10 mg PO DAILY 06/13/19 hydralazine 50 mg tablet 50 mg PO TID tab 06/13/19 omeprazole 20 mg capsule,delayed 20 mg PO DAILY 06/13/19 release sevelamer carbonate 800 mg tablet 800 mg PO TIDCM tab 06/13/19 Folic Acid/Vit B Complex and C 0.8 mg PO DAILY 08/07/19 [Renal-Martin Tablet] Insulin Aspart [Novolog Flexpen] 8 units SQ DINNER 06/11/20 Insulin Aspart [Novolog Flexpen] 15 units SQ BREAKFAST 06/11/20 Surgical History: Surgical History (Last Reviewed 01/09/20 @ 09:17 by Alisha Her) S/P arteriovenous (AV) fistula creation Z98.890 S/P laparoscopic cholecystectomy Z90.49 S/P tubal ligation Z98.51 Smoking Status: Current every day smoker Review of Systems Constitutional: Denies: Anorexia, Fever HEENT: Denies: Difficulty Swallowing Cardiovascular: Denies: Chest Pain Respiratory: Reports: Shortness of Breath. Denies: Cough Gastrointestinal: Reports: Melena. Denies: Abdominal Pain, Nausea, Vomiting Genitourinary: Denies: Dysuria Skin: Denies: Jaundice Neurological: Denies: Balance problems - Physical Exam Vitals/I&O's: Vital Signs Temp Pulse Resp BP Pulse Ox 97.4 F L 72 22 H 117/31 L 97 06/11/20 17:47 06/11/20 17:47 06/11/20 17:47 06/11/20 17:47 06/11/20 17:47 Oxygen Flow Rate (L/min) 6 Oxygen Delivery Method Nasal Cannula Weight: 114 lb 3.2 oz Body Mass Index (BMI) 22.3 Intake and Output for Last 24 Hours 06/09/20 06/10/20 06/11/20 23:59 23:59 23:59 Intake Total 500 / 500 Balance 500 / 500 General: Alert, Cooperative HEENT: Atraumatic, PERRLA Neck: No JVD Lungs: Short of Breath, Tachypneic Cardiovascular: Regular rate, Regular Rhythm Abdomen: Soft, Non Tender, Non-Distended Skin: No rashes Musculoskeletal: No Muscle Wasting Lymphatic: No Cervical, Supraclavicular, or Inguinal Adenopathy Neurological: Cranial nerves II-XII grossly intact Psych/Mental Status: Normal Affect Laboratory Results 06/11/20 17:13: Sodium 140, Potassium 6.5 H*, Chloride 108 H, Carbon Dioxide 21.0, Anion Gap 11, BUN 107 H*, Creatinine 8.79 H*, Estim Creat Clear Calc 4.89, Est GFR (MDRD) Af Amer 6 L, Est GFR (MDRD) Non-Af 5 L, BUN/Creatinine Ratio 12.2, Glucose 191 H, Calcium 8.1 L, Total Bilirubin 0.40, AST 11 L, ALT 16, Alkaline Phosphatase 80, Total Protein 6.4, Albumin 2.6 L, Globulin 3.8, Albumin/Globulin Ratio 0.7 L 06/11/20 17:13: Blood Type Pending, Antibody Screen Pending, Crossmatch See Detail 06/11/20 17:13: WBC Pending, RBC Pending, Hgb Pending, Hct Pending, MCV Pending, MCH Pending, MCHC Pending, RDW Std Deviation Pending, RDW Coeff of Mamta Pending, Plt Count Pending, Neut % (Auto) Pending, Absolute Neuts (auto) Pending Current Medications Albuterol/Ipratropium (Ipratropium/Albuterol Sulfate 3 Ml Ampul.Neb) 3 ml INHALATION Q4H.RT SONIA Pantoprazole Sodium 80 mg/ (Sodium Chloride) 100 mls @ 10 mls/hr CONT INF Q10H SONIA Ondansetron HCl (Ondansetron 4 Mg/2 Ml Vial) 4 mg IV Q8H PRN PRN PRN Reason: NAUSEA/VOMITING Assessment/Plan All Active Problems (Last Reviewed 01/09/20 @ 09:17 by Alisha Her) GI bleed (Acute) Problem with dialysis access (Acute) 60-year-old female with GI bleeding 1. The patient has melena and at the her outside hospital had a hemoglobin of 6.1. The patient was also hypotensive on arrival. The patient is currently receiving a fluid bolus and will be receiving blood. She is also scheduled to be dialyzed tonight which should help get some of the blood thinner out of her system. She is started on a PPI drip. Patient should remain n.p.o. Plan on performing EGD tomorrow. I discussed this with the patient in detail. I did order preoperative Covid test. 2. I explained endoscopy in detail to the patient. I explained the risks including but not limited to stroke or heart attack with anesthesia, perforation of the GI tract, bleeding, infection. I explained that any of these could necessitate further emergency surgery. The patient understands and all questions were answered sufficiently. The patient wishes to proceed with procedure. Jakob Allen MD Pager: [facility] [address] [place] [address], [address] [place] [address] Office:
[2020-06-11 18:12] LABS: Differential Indicated SCAN CRITERIA MET; Hemoglobin 5.6 g/dL (12.0-15.0)
[2020-06-11 18:19] LABS: Anisocytosis 1+; Hypochromasia 1+; Macrocytosis 1+; Platelet Estimate SLT INC (ADEQ); Red Cell Morphology N CHROM NORMAL (NORM C&C)
[2020-06-11 18:26] LABS: Bedside Glucose 209 mg/dL (70-110)
[2020-06-11] MEDS: 0.9% Saline Lock 10 ML Syringe IV ×2 (18:28→22:00)
[2020-06-11] MEDS: Ondansetron 4 MG/2 ML Vial IV (18:28)
--- NOTE | 2020-06-11 18:35 | NURSING ---
This RN and additional residential treatment staff in room because pt states that she is having difficulty breathing and nauseous. IV ZOfran given. Pt incontinent of stool at this time. Notified auditor in charge and she notified Dr Duncan of symptoms and blood pressure. learning analyst in room. Pt more lethargic, c/o difficult breathing. Placed on hi alfredo O2. No improvement in O2. DROP MAN called, see DROP MAN documentation.
--- NOTE | 2020-06-11 19:00 | NURSING ---
patient transferred to ICU bed 4, bedside report given to PATT Fox
[2020-06-11 20:34] LABS: Probe Check PASS; Specimen Processing Control PASS
--- NOTE | 2020-06-11 20:50 | NURSING ---
while this RN was getting blood from lab, oracle database developer called COTTON PRESSER for pt's blood pressure and not responding. see COTTON PRESSER paper charting. multiple ICU RNs, hospitalist, resp therapy, and adult educator at bedside.
--- NOTE | 2020-06-11 21:22 | ED.RN ---
2nd unit of blood was given by fire ranger. 3rd unit was started per MD during INFORMATION SYSTEMS TECHNICIAN and then verified in TAR. order to run wide open- see MAR for saline bolus also given. CITRUS PICKER going to get 4th unit of PRBCs. hospitalist at bedside. pt drowsy but asking for warm blankets and given.
[2020-06-11 21:25] LABS: Blood Gas Specimen Type VEN; O2 Delivery Device NRB; VBG BASE EXCESS -10 mmol/L (-1.0-3.5); VBG Bicarbonate 18 mmol/L (22-26); VBG PO2 30 mmHg (25-40); VBG SO2 42 % (50-70); VBG TCO2 20 mmol/L (23-33); VBG pCO2 49.4 mmHg (41-51); VBG pH 7.17 (7.32-7.42)
--- NOTE | 2020-06-11 21:30 | CPS ---
Critical ABG results read back to Dr. Duncan
--- NOTE | 2020-06-11 21:45 | DIALYSIS ---
Complicated HD - unable to complete tx. See flowsheet for details. Report to Joyce Shoemaker RN at bedside. Aware the venous access remains with slight oozing. the dressing has small amount of blood on that is outlined. recommend monitor site.
--- NOTE | 2020-06-11 21:55 | ED.RN ---
julia borjas initiated.
--- NOTE | 2020-06-11 22:17 | PCM.RRT.NO ---
Rapid Response Note First rapid response was called for patient was having difficulty breathing and nauseous. She had a second bowel movement that was melena/bright red blood. Patient was more lethargic. Blood glucose was 206. Blood pressures were low. Fluid boluses was given. Packed RBCs were still pending. Request to lab to expedite blood done. Patient sent to the ICU. Second rapid response was called for patient that was very lethargic soon after dialysis was started. Blood pressure was low with systolic in the 60s. First unit of blood has just been started. Fluid boluses were given. Patient's oxygenation was difficult on account of cold extremities. She was resuscitated with 4 units of packed RBCs as well as fluid boluses. Dialysis could not be completed. Patient was also warmed with a bear hugger. Vitals remained stable. Time spent at the bedside coordinating resuscitation and care, writing critical care, communicating with nursing staff, getting blood transfusions from lab, was 1 hour -from 20:45 to 21:45 HRS Patient Problems: Active and Suspected Problems (Last Reviewed 01/09/20 @ 09:17 by Alisha Her) GI bleed (Acute) ESRD (end stage renal disease) on dialysis (Acute) Hypotension (Acute) Severe anemia (Acute) - Physical Exam Vitals/I&O's: Vital Signs Temp Pulse Resp BP Pulse Ox 96.2 F L 58 L 22 H 118/56 L 100 06/11/20 22:00 06/11/20 22:00 06/11/20 22:00 06/11/20 22:00 06/11/20 22:00 Oxygen Flow Rate (L/min) 15 Oxygen Delivery Method Non-Rebreather Weight: 51.8 kg Body Mass Index (BMI) 22.3 Intake and Output for Last 24 Hours 06/09/20 06/10/20 06/11/20 23:59 23:59 23:59 Intake Total 2199 / 2200 Balance 2199 / 2199 Laboratory Results 06/11/20 17:13: Sodium 140, Potassium 6.5 H*, Chloride 108 H, Carbon Dioxide 21.0, Anion Gap 11, BUN 107 H*, Creatinine 8.79 H*, Estim Creat Clear Calc 4.89, Est GFR (MDRD) Af Amer 6 L, Est GFR (MDRD) Non-Af 5 L, BUN/Creatinine Ratio 12.2, Glucose 191 H, Calcium 8.1 L, Total Bilirubin 0.40, AST 11 L, ALT 16, Alkaline Phosphatase 80, Total Protein 6.4, Albumin 2.6 L, Globulin 3.8, Albumin/Globulin Ratio 0.7 L 06/11/20 17:13: Blood Type A NEGATIVE, Antibody Screen NEGATIVE, Crossmatch See Detail 06/11/20 17:13: WBC 14.2 H, RBC 2.06 L, Hgb 5.6 L*, Hct 19.5 L, MCV 94.7, MCH 27.2, MCHC 28.7 L, RDW Std Deviation 59.5 H, RDW Coeff of Mamta 17.9 H, Plt Count 402, MPV 10.3, Immature Gran % (Auto) 0.800, Neut % (Auto) 86.9 H, Lymph % (Auto) 8.5 L, [place] % (Auto) 3.3, Eos % (Auto) 0.1, Baso % (Auto) 0.4, Absolute Neuts (auto) 12.3 H, Absolute Lymphs (auto) 1.20, Nucleated RBC % 0, Diff Path Review Anitra alaniz, Platelet Estimate T INC, RBC Morphology N CHROM, Hypochromasia 1+, Anisocytosis 1+, Macrocytosis 1+ 06/11/20 17:13: Crossmatch See Detail 06/11/20 17:13: Crossmatch See Detail 06/11/20 17:36: POC Glucose 209 H 06/11/20 17:48: COVID-19 (ASIA) Negative 06/11/20 21:19: Specimen Type MARCUS, VBG pH 7.17 L*, VBG pO2 30, VBG HCO3 18 L, VBG Total CO2 20 L, VBG O2 Sat (Calc) 42 L, VBG Base Excess -10 L, POC Mix VBG pCO2 Pt Tmp 49.4, O2 Delivery Device NRB Current Medications Albuterol/Ipratropium (Ipratropium/Albuterol Sulfate 3 Ml Ampul.Neb) 3 ml INHALATION Q4H.RT SONIA Pantoprazole Sodium 80 mg/ (Sodium Chloride) 100 mls @ 10 mls/hr CONT INF Q10H SONIA Last Admin: 06/11/20 18:30 Dose: 10 mls/hr Documented by: Sodium Chloride () 1,000 mls @ 75 mls/hr IV .[id number] SONIA Levofloxacin (Levaquin Iv) 750 mg in 150 mls @ 100 mls/hr IV X1 ONE Stop: 06/11/20 22:29 Levofloxacin (Levaquin Iv) 500 mg in 100 mls @ 100 mls/hr IV Q48H SONIA Prochlorperazine Edisylate (Prochlorperazine 10 Mg/2 Ml Vial) 5 mg IV Q6H PRN PRN PRN Reason: NAUSEA/VOMITING Assessment/Plan All Active Problems (Last Reviewed 01/09/20 @ 09:17 by Alisha Her) GI bleed (Acute) ESRD (end stage renal disease) on dialysis (Acute) Hypotension (Acute) Severe anemia (Acute) Problem with dialysis access (Acute)
[2020-06-11] MEDS: 0.9% Normal Saline 1,000 ML 75 ML IV (22:20)
[2020-06-11] MEDS: levoFLOXacin IV 750 MG/150 ML BAG 100 MG IV (22:49)
[2020-06-11 22:55] LABS: Bedside Glucose 180 mg/dL (70-110)
[2020-06-11] MEDS: Ipratropium/Albuterol Sulfate 3 ML AMPUL.NEB INHALATION (23:04)
[2020-06-11 23:44] LABS: Absolute Lymphocyte Count 0.71 X10^3/uL (0.83-4.51); Absolute Neutrophil Count 23.7 X10^3/uL (2.0-7.7); Basophil# 0.09 X10^3/uL; Basophil% 0.3 % (0-1); Hematocrit 34.9 % (37-47); Hemoglobin 11.5 g/dL (12.0-15.0); Lymphocyte # 0.71 X10^3/ul (4.0); Lymphocyte % 2.7 % (19-41); Mean Corpuscular Volume 91.1 fL (81-99); Monocyte# 1.15 X10^3/uL; Monocyte% 4.4 % (0-10); NRBC Flagged by Analyzer 0.1 % (0-5); Neutrophil # 23.72 X10^3/uL (2.7-7.7); Neutrophil % 90.8 % (47-70); POSITIVE DIFFERENTIAL YES; Platelet Count 287 K/mm3 (150-450); RBC Distribution Width CV 15.5 % (11.6-14.6); RBC Distribution Width SD 50.3 fl (35.1-43.9); Red Blood Count 3.83 M/mm3 (4.2-5.4); White Blood Count 26.1 K/mm3 (4.4-11.0)
[2020-06-12] VITALS (36 sets, daily range): BP systolic 97–141; BP diastolic 51–81; PULSE 64–92; RESP 16–39; TEMP 35.8–36.7; O2SAT 90–97
[2020-06-12] LABS: Differential Indicated SCAN CRITERIA MET
[2020-06-12 00:16] LABS: Anion Gap 12 (5-15); BUN 93 mg/dL (7-18); BUN/Creat Ratio 12.6 RATIO (10-20); Calcium,Total 6.9 mg/dL (8.5-10.1); Chloride 112 mmol/L (98-107); Creatinine, Serum 7.41 mg/dL (0.55-1.02); EST Glomerular Filtration Rate 6 mL/min (>60); Est Glom Filt Rate - Afr Amer 7 mL/min (>60); Glucose 242 mg/dL (74-106); Potassium 6.3 mmol/L (3.5-5.1); Sodium Level 143 mmol/L (136-145)
[2020-06-12 00:36] LABS: Anisocytosis 1+; Differential Comment SCANNED; Hypochromasia RARE; Macrocytosis 1+; Platelet Estimate ADEQUATE (ADEQ); Polychromasia RARE
--- NOTE | 2020-06-12 01:58 | NURSING ---
attempted to place pt on 6L NC- O2 sats dropped to 85%. pt awakens easily, able to answer questions appropriately. decreased temp on bear hugger. venti mask placed at 50%, sats 91%
[2020-06-12] MEDS: Ipratropium/Albuterol Sulfate 3 ML AMPUL.NEB INHALATION ×4 (03:08→23:25)
[2020-06-12 04:13] LABS: Absolute Lymphocyte Count 0.87 X10^3/uL (0.83-4.51); Absolute Neutrophil Count 21.5 X10^3/uL (2.0-7.7); Basophil# 0.04 X10^3/uL; Basophil% 0.2 % (0-1); Hematocrit 35.7 % (37-47); Hemoglobin 11.6 g/dL (12.0-15.0); Lymphocyte # 0.87 X10^3/ul (4.0); Lymphocyte % 3.7 % (19-41); Mean Corp Hgb Conc 32.5 g/dL (32-36); Mean Corpuscular Hgb 29.4 pg (27.0-32.0); Mean Corpuscular Volume 90.6 fL (81-99); Mean Platelet Vol. 10.1 fl (6.2-12.0); Monocyte# 1.06 X10^3/uL; Monocyte% 4.5 % (0-10); NRBC Flagged by Analyzer 0.1 % (0-5); Neutrophil # 21.45 X10^3/uL (2.7-7.7); Neutrophil % 90.5 % (47-70); POSITIVE DIFFERENTIAL YES; Platelet Count 293 K/mm3 (150-450); RBC Distribution Width CV 15.9 % (11.6-14.6); RBC Distribution Width SD 51.4 fl (35.1-43.9); Red Blood Count 3.94 M/mm3 (4.2-5.4); White Blood Count 23.7 K/mm3 (4.4-11.0)
[2020-06-12 04:17] LABS: Differential Indicated SCAN CRITERIA MET
[2020-06-12 04:31] LABS: ALB/GLOB Ratio 0.7 RATIO (0.9-2.4); AST(SGOT) 126 U/L (15-37); Alanine Aminotransfer ALT/SGPT 112 U/L (13-56); Albumin, Serum 2.3 g/dL (3.2-5.0); Alkaline Phosphatase 152 U/L (45-117); Anion Gap 12 (5-15); BUN 94 mg/dL (7-18); BUN/Creat Ratio 12.5 RATIO (10-20); Calcium,Total 6.9 mg/dL (8.5-10.1); Chloride 110 mmol/L (98-107); Creatinine, Serum 7.55 mg/dL (0.55-1.02); EST Glomerular Filtration Rate 6 mL/min (>60); Est Glom Filt Rate - Afr Amer 7 mL/min (>60); Estimated Creatinine Clearance 5.69 ml/min; Globulin 3.5 g/dL (2.2-4.2); Glucose 218 mg/dL (74-106); Potassium 5.5 mmol/L (3.5-5.1); Protein, Total 5.8 g/dL (6.4-8.2); Sodium Level 140 mmol/L (136-145)
[2020-06-12] MEDS: 0.9% Saline Lock 10 ML Syringe IV (04:40)
[2020-06-12] MEDS: 0.9% Normal Saline 1,000 ML 50 ML IV (05:31)
--- NOTE | 2020-06-12 07:49 | PN.SURG_ITS ---
Patient Problems: Active and Suspected Problems (Last Reviewed 01/09/20 @ 09:17 by Alisha Her) GI bleed (Acute) ESRD (end stage renal disease) on dialysis (Acute) Hypotension (Acute) Severe anemia (Acute) Subjective: The patient had melanotic stools overnight and was transferred to the ICU for hypoxia - Physical Exam Vitals/I&O's: Vital Signs Temp Pulse Resp BP Pulse Ox 96.5 F L 74 24 H 116/51 L 94 06/12/20 04:00 06/12/20 07:12 06/12/20 07:12 06/12/20 07:12 06/12/20 07:12 Oxygen Flow Rate (L/min) 15 Oxygen Delivery Method Venturi Mask Weight: 125 lb 11.2 oz Body Mass Index (BMI) 22.3 Intake and Output for Last 24 Hours 06/10/20 06/11/20 06/12/20 23:59 23:59 23:59 Intake Total 2775 / 2775 959.17 / 959.17 Balance 2775 / 2775 959.17 / 959.17 General: Alert, Cooperative Lungs: Short of Breath Cardiovascular: Regular rate, Regular Rhythm Abdomen: Soft, Non Tender, Non-Distended Skin: No rashes Musculoskeletal: No Muscle Wasting Neurological: Cranial nerves II-XII grossly intact Psych/Mental Status: Normal Affect Laboratory Results 06/11/20 17:13: Sodium 140, Potassium 6.5 H*, Chloride 108 H, Carbon Dioxide 21.0, Anion Gap 11, BUN 107 H*, Creatinine 8.79 H*, Estim Creat Clear Calc 4.89, Est GFR (MDRD) Af Amer 6 L, Est GFR (MDRD) Non-Af 5 L, BUN/Creatinine Ratio 12.2, Glucose 191 H, Calcium 8.1 L, Total Bilirubin 0.40, AST 11 L, ALT 16, Alkaline Phosphatase 80, Total Protein 6.4, Albumin 2.6 L, Globulin 3.8, Albumin/Globulin Ratio 0.7 L 06/11/20 17:13: Blood Type A NEGATIVE, Antibody Screen NEGATIVE, Crossmatch See Detail 06/11/20 17:13: WBC 14.2 H, RBC 2.06 L, Hgb 5.6 L*, Hct 19.5 L, MCV 94.7, MCH 27.2, MCHC 28.7 L, RDW Std Deviation 59.5 H, RDW Coeff of Mamta 17.9 H, Plt Count 402, MPV 10.3, Immature Gran % (Auto) 0.800, Neut % (Auto) 86.9 H, Lymph % (Auto) 8.5 L, [place] % (Auto) 3.3, Eos % (Auto) 0.1, Baso % (Auto) 0.4, Absolute Neuts (auto) 12.3 H, Absolute Lymphs (auto) 1.20, Nucleated RBC % 0, Diff Path Review May foll, Platelet Estimate SLT INC, RBC Morphology N CHROM, Hypochromasia 1+, Anisocytosis 1+, Macrocytosis 1+ 06/11/20 17:13: Crossmatch See Detail 06/11/20 17:13: Crossmatch See Detail 06/11/20 17:36: POC Glucose 209 H 06/11/20 17:48: COVID-19 (ASIA) Negative 06/11/20 20:58: POC Glucose 180 H 06/11/20 21:19: Specimen Type MARCUS, VBG pH 7.17 L*, VBG pO2 30, VBG HCO3 18 L, VBG Total CO2 20 L, VBG O2 Sat (Calc) 42 L, VBG Base Excess -10 L, POC Mix VBG pCO2 Pt Tmp 49.4, O2 Delivery Device NRB 06/11/20 23:40: WBC 26.1 H, RBC 3.83 L, Hgb 11.5 L, Hct 34.9 L, MCV 91.1, MCH 30.0, MCHC 33.0 D, RDW Std Deviation 50.3 H, RDW Coeff of Mamta 15.5 H, Plt Count 287, MPV 10.0, Immature Gran % (Auto) 1.800 H, Neut % (Auto) 90.8 H, Lymph % (Auto) 2.7 L, [place] % (Auto) 4.4, Eos % (Auto) 0.0, Baso % (Auto) 0.3, Absolute Neuts (auto) 23.7 H, Absolute Lymphs (auto) 0.71 L, Nucleated RBC % 0.1, Differential Comment SCANNED, Platelet Estimate ADEQUATE, Polychromasia RARE, Hypochromasia RARE, Anisocytosis 1+, Macrocytosis 1+ 06/11/20 23:40: Sodium 143, Potassium 6.3 H*, Chloride 112 H, Carbon Dioxide 19.0 L, Anion Gap 12, BUN 93 H, Creatinine 7.41 H*, Estim Creat Clear Calc 5.80, Est GFR (MDRD) Af Amer 7 L, Est GFR (MDRD) Non-Af 6 L, BUN/Creatinine Ratio 12.6, Glucose 242 H, Calcium 6.9 L 06/12/20 04:00: WBC 23.7 H, RBC 3.94 L, Hgb 11.6 L, Hct 35.7 L, MCV 90.6, MCH 29.4, MCHC 32.5, RDW Std Deviation 51.4 H, RDW Coeff of Mamta 15.9 H, Plt Count 293, MPV 10.1, Immature Gran % (Auto) 1.100 H, Neut % (Auto) 90.5 H, Lymph % (Auto) 3.7 L, [place] % (Auto) 4.5, Eos % (Auto) 0.0, Baso % (Auto) 0.2, Absolute Neuts (auto) 21.5 H, Absolute Lymphs (auto) 0.87, Nucleated RBC % 0.1 06/12/20 04:00: Sodium 140, Potassium 5.5 H, Chloride 110 H, Carbon Dioxide 18.0 L, Anion Gap 12, BUN 94 H, Creatinine 7.55 H*, Estim Creat Clear Calc 5.69, Est GFR (MDRD) Af Amer 7 L, Est GFR (MDRD) Non-Af 6 L, BUN/Creatinine Ratio 12.5, Glucose 218 H, Calcium 6.9 L, Total Bilirubin 0.60, AST 126 H, ALT 112 H, Alkaline Phosphatase 152 H, Total Protein 5.8 L, Albumin 2.3 L, Globulin 3.5, Albumin/Globulin Ratio 0.7 L 06/12/20 04:00: Hep Bs Antigen Pending Clinical Impression(s) from Imaging Studies Chest X-Ray 06/11/20 16:55 IMPRESSION: Poorly defined pulmonary opacity of the mid left lung and atelectasis or infiltrate in the left lung base with small effusion. Pneumonic infiltrates are possible. Electronically Signed: Sukhdeep Corbin MD at 18:52 EST , Service support , Current Medications Albuterol/Ipratropium (Ipratropium/Albuterol Sulfate 3 Ml Ampul.Neb) 3 ml INHALATION Q4H.RT [facility] Last Admin: 06/12/20 06:47 Dose: 3 ml Documented by: Pantoprazole Sodium 80 mg/ (Sodium Chloride) 100 mls @ 10 mls/hr CONT INF Q10H [facility] Last Admin: 06/12/20 05:28 Dose: 10 mls/hr Documented by: Sodium Chloride () 1,000 mls @ 50 mls/hr IV .Q20H SONIA Last Admin: 06/12/20 05:31 Dose: 50 mls/hr Documented by: Levofloxacin (Levaquin Iv) 500 mg in 100 mls @ 100 mls/hr IV Q48H SONIA Sodium Chloride () 250 mls @ 15 mls/hr IV .[id number] PRN PRN Reason: Saline Flush Sodium Chloride () 250 mls @ 15 mls/hr IV .[id number] PRN PRN Reason: Additional IVPB Infusion Prochlorperazine Edisylate (Prochlorperazine 10 Mg/2 Ml Vial) 5 mg IV Q6H PRN PRN PRN Reason: NAUSEA/VOMITING Sodium Chloride (0.9% Saline Lock 10 Ml Syringe) 10 - 40 ml IV UD PRN PRN Reason: SALINE FLUSH Last Admin: 06/12/20 04:40 Dose: 20 ml Documented by: Medical Necessity - Tobacco Use Smoking Status: Current every day smoker Tobacco Use: Non-smoker Assessment/Plan All Active Problems (Last Reviewed 01/09/20 @ 09:17 by Alisha Her) GI bleed (Acute) ESRD (end stage renal disease) on dialysis (Acute) Hypotension (Acute) Severe anemia (Acute) Problem with dialysis access (Acute) 60-year-old female with possible GI bleed 1. Patient is having melanotic stools and was anemic. The patient did receive blood transfusions. The patient was moved to the ICU with hypoxia. Solution Consultant is seeing the patient this morning to give his opinion. The patient also has elevated white count with the etiology being unknown. The patient is on Levaquin. The patient has hypoxia and may need a CT of the chest and if that is done I recommend also getting a CT of the abdomen pelvis to ensure there is no infectious etiology of the abdomen pelvis although she has no abdominal pain. I was planning for an EGD this afternoon but I will see how stable the patient is. Jakob Allen MD Pager: [facility] [address] [place] [address], [address] [place] [address] Office:
--- NOTE | 2020-06-12 07:51 | CON.PCM_ITS ---
Problem List (1) ESRD (end stage renal disease) on dialysis Status: Acute Consultation - Renal 06/12/20 PCP/ Referring MD: Requesting physician: [] Primary care physician: Dr. Ginna Pineda MD Reason for Consultation:: ESRD - History of Present Illness History of Present Illness: The patient is a 60 year old F admitted to the hospital with complaints of shortness of breath. Nephrology consulted for ESRD. ESRD on hemodialysis Monday, Monday, Monday schedule. Last dialysis was Monday. She did not go to dialysis on Monday because she was sick. Presented with fluid overload, severe hyperkalemia, severe anemia, GI bleed. Required blood transfusion overnight. She was on the floor and had a rapid response and was transferred to the ICU for resuscitation. Currently appears okay. Breathing is acceptable on nasal cannula. Unfortunately her right arm AV fistula clotted off this morning. Currently complains of some shortness of breath. No other complaints. - Allergies Allergies: Allergies Penicillins Adverse Reaction (Verified 01/09/20 09:17) Nausea/Vom/Diarrhea - Current Medications Current Medications: Current Medications Albuterol/Ipratropium (Ipratropium/Albuterol Sulfate 3 Ml Ampul.Neb) 3 ml INHALATION Q4H.RT [facility]ONIA Last Admin: 06/12/20 06:47 Dose: 3 ml Documented by: Pantoprazole Sodium 80 mg/ (Sodium Chloride) 100 mls @ 10 mls/hr CONT INF Q10H SONIA Last Admin: 06/12/20 05:28 Dose: 10 mls/hr Documented by: Sodium Chloride () 1,000 mls @ 50 mls/hr IV .Q20H SONIA Last Admin: 06/12/20 05:31 Dose: 50 mls/hr Documented by: Levofloxacin (Levaquin Iv) 500 mg in 100 mls @ 100 mls/hr IV Q48H SONIA Sodium Chloride () 250 mls @ 15 mls/hr IV .[id number] PRN PRN Reason: Saline Flush Sodium Chloride () 250 mls @ 15 mls/hr IV .[id number] PRN PRN Reason: Additional IVPB Infusion Prochlorperazine Edisylate (Prochlorperazine 10 Mg/2 Ml Vial) 5 mg IV Q6H PRN PRN PRN Reason: NAUSEA/VOMITING Sodium Chloride (0.9% Saline Lock 10 Ml Syringe) 10 - 40 ml IV UD PRN PRN Reason: SALINE FLUSH Last Admin: 06/12/20 04:40 Dose: 20 ml Documented by: - Past Surgical History Surgical History: cholecystectomy - Tubal ligation, - - status post tubal ligation - Social History Smoking Status: Current every day smoker Alcohol: None Review of Systems Constitutional: Denies: Chills, Fever, Weight Change HEENT: Denies: Head Aches, Sinus Congestion, Sinus Drainage Cardiovascular: Denies: Chest Pain, Palpitations Respiratory: Reports: Shortness of Breath, Shortness of breath at rest. Denies: Sputum production Gastrointestinal: Denies: Abdominal Pain, Nausea, Vomiting Genitourinary: Denies: Dysuria Musculoskeletal: Denies: Joint Pain, Joint Tenderness Skin: Denies: Rash, Wounds Neurological: Denies: Numbness, Tingling, Focal weakness Psychiatric: Denies: Anxiety, Depression, Homicidal Ideations, Suicidal Ideations Hematologic/ Lymphatic: Denies: Easy Bruising, Easy Bleeding Patient Problems: Active and Suspected Problems (Last Reviewed 01/09/20 @ 09:17 by Alisha Her) GI bleed (Acute) ESRD (end stage renal disease) on dialysis (Acute) Hypotension (Acute) Severe anemia (Acute) - Physical Exam Vitals/I&O's: Vital Signs Temp Pulse Resp BP Pulse Ox 96.5 F L 74 24 H 116/51 L 94 06/12/20 04:00 06/12/20 07:12 06/12/20 07:12 06/12/20 07:12 06/12/20 07:12 Oxygen Flow Rate (L/min) 15 Oxygen Delivery Method Venturi Mask Weight: 57.017 kg Body Mass Index (BMI) 22.3 Intake and Output for Last 24 Hours 06/10/20 06/11/20 06/12/20 23:59 23:59 23:59 Intake Total 277 / 2775 959.17 / 959.17 Balance 2775 / 2775 959.17 / 959.17 General: Alert, Oriented x3, Cooperative HEENT: Atraumatic, PERRLA, EOMI, Normocephalic Neck: Supple, No JVD, Negative Carotid Bruits Lungs: Clear to auscultation, Normal air movement Cardiovascular: Regular rate, No murmurs Abdomen: Bowel Sounds Present, Soft, Non Tender Extremities: No edema, Capillary Refill Less than 3 Seconds Skin: No rashes, No breakdown Musculoskeletal: No Tenderness to Palpation of Joints or Extremities Neurological: Cranial nerves II-XII grossly intact Psych/Mental Status: Normal Affect, Appropriate Laboratory Results 06/11/20 17:13: Sodium 140, Potassium 6.5 H*, Chloride 108 H, Carbon Dioxide 21.0, Anion Gap 11, BUN 107 H*, Creatinine 8.79 H*, Estim Creat Clear Calc 4.89, Est GFR (MDRD) Af Amer 6 L, Est GFR (MDRD) Non-Af 5 L, BUN/Creatinine Ratio 12.2, Glucose 191 H, Calcium 8.1 L, Total Bilirubin 0.40, AST 11 L, ALT 16, A lkaline Phosphatase 80, Total Protein 6.4, Albumin 2.6 L, Globulin 3.8, Albumin/Globulin Ratio 0.7 L 06/11/20 17:13: Blood Type A NEGATIVE, Antibody Screen NEGATIVE, Crossmatch See Detail 06/11/20 17:13: WBC 14.2 H, RBC 2.06 L, Hgb 5.6 L*, Hct 19.5 L, MCV 94.7, MCH 27.2, MCHC 28.7 L, RDW Std Deviation 59.5 H, RDW Coeff of Mamta 17.9 H, Plt Count 402, MPV 10.3, Immature Gran % (Auto) 0.800, Neut % (Auto) 86.9 H, Lymph % (Auto) 8.5 L, [place] % (Auto) 3.3, Eos % (Auto) 0.1, Baso % (Auto) 0.4, Absolute Neuts (auto) 12.3 H, Absolute Lymphs (auto) 1.20, Nucleated RBC % 0, Diff Path Review May katty, Platelet Estimate T INC, RBC Morphology N CHROM, Hypochromasia 1+, Anisocytosis 1+, Macrocytosis 1+ 06/11/20 17:13: Crossmatch See Detail 06/11/20 17:13: Crossmatch See Detail 06/11/20 17:36: POC Glucose 209 H 06/11/20 17:48: COVID-19 (ASIA) Negative 06/11/20 20:58: POC Glucose 180 H 06/11/20 21:19: Specimen Type MARCUS, VBG pH 7.17 L*, VBG pO2 30, VBG HCO3 18 L, VBG Total CO2 20 L, VBG O2 Sat (Calc) 42 L, VBG Base Excess -10 L, POC Mix VBG pCO2 Pt Tmp 49.4, O2 Delivery Device NRB 06/11/20 23:40: WBC 26.1 H, RBC 3.83 L, Hgb 11.5 L, Hct 34.9 L, MCV 91.1, MCH 30.0, MCHC 33.0 D, RDW Std Deviation 50.3 H, RDW Coeff of Mamta 15.5 H, Plt Count 287, MPV 10.0, Immature Gran % (Auto) 1.800 H, Neut % (Auto) 90.8 H, Lymph % (Auto) 2.7 L, [place] % (Auto) 4.4, Eos % (Auto) 0.0, Baso % (Auto) 0.3, Absolute Neuts (auto) 23.7 H, Absolute Lymphs (auto) 0.71 L, Nucleated RBC % 0.1, Differential Comment SCANNED, Platelet Estimate ADEQUATE, Polychromasia RARE, Hypochromasia RARE, Anisocytosis 1+, Macrocytosis 1+ 06/11/20 23:40: Sodium 143, Potassium 6.3 H*, Chloride 112 H, Carbon Dioxide 19.0 L, Anion Gap 12, BUN 93 H, Creatinine 7.41 H*, Estim Creat Clear Calc 5.80, Est GFR (MDRD) Af Amer 7 L, Est GFR (MDRD) Non-Af 6 L, BUN/Creatinine Ratio 12.6, Glucose 242 H, Calcium 6.9 L 06/12/20 04:00: WBC 23.7 H, RBC 3.94 L, Hgb 11.6 L, Hct 35.7 L, MCV 90.6, MCH 29.4, MCHC 32.5, RDW Std Deviation 51.4 H, RDW Coeff of Mamta 15.9 H, Plt Count 293, MPV 10.1, Immature Gran % (Auto) 1.100 H, Neut % (Auto) 90.5 H, Lymph % (Auto) 3.7 L, [place] % (Auto) 4.5, Eos % (Auto) 0.0, Baso % (Auto) 0.2, Absolute Neuts (auto) 21.5 H, Absolute Lymphs (auto) 0.87, Nucleated RBC % 0.1 06/12/20 04:00: Sodium 140, Potassium 5.5 H, Chloride 110 H, Carbon Dioxide 18.0 L, Anion Gap 12, BUN 94 H, Creatinine 7.55 H*, Estim Creat Clear Calc 5.69, Est GFR (MDRD) Af Amer 7 L, Est GFR (MDRD) Non-Af 6 L, BUN/Creatinine Ratio 12.5, Glucose 218 H, Calcium 6.9 L, Total Bilirubin 0.60, AST 126 H, ALT 112 H, Alkaline Phosphatase 152 H, Total Protein 5.8 L, Albumin 2.3 L, Globulin 3.5, Albumin/Globulin Ratio 0.7 L 06/12/20 04:00: Hep Bs Antigen Pending Current Medications Albuterol/Ipratropium (Ipratropium/Albuterol Sulfate 3 Ml Ampul.Neb) 3 ml INHALATION Q4H.RT [facility] Last Admin: 06/12/20 06:47 Dose: 3 ml Documented by: Pantoprazole Sodium 80 mg/ (Sodium Chloride) 100 mls @ 10 mls/hr CONT INF Q10H [facility] Last Admin: 06/12/20 05:28 Dose: 10 mls/hr Documented by: Sodium Chloride () 1,000 mls @ 50 mls/hr IV .Q20H [facility] Last Admin: 06/12/20 05:31 Dose: 50 mls/hr Documented by: Levofloxacin (Levaquin Iv) 500 mg in 100 mls @ 100 mls/hr IV Q48H [facility] Sodium Chloride () 250 mls @ 15 mls/hr IV .[id number] PRN PRN Reason: Saline Flush Sodium Chloride () 250 mls @ 15 mls/hr IV .[id number] PRN PRN Reason: Additional IVPB Infusion Prochlorperazine Edisylate (Prochlorperazine 10 Mg/2 Ml Vial) 5 mg IV Q6H PRN PRN PRN Reason: NAUSEA/VOMITING Sodium Chloride (0.9% Saline Lock 10 Ml Syringe) 10 - 40 ml IV UD PRN PRN Reason: SALINE FLUSH Last Admin: 06/12/20 04:40 Dose: 20 ml Documented by: Assessment/Plan All Active Problems (Last Reviewed 01/09/20 @ 09:17 by Alisha Her) GI bleed (Acute) ESRD (end stage renal disease) on dialysis (Acute) Hypotension (Acute) Severe anemia (Acute) Problem with dialysis access (Acute) End-stage renal disease. Fluid overload Hyperkalemia Severe anemia likely related to upper GI bleed. She received very short amount of dialysis overnight. Was taken off early due to hemodynamic instability. Today morning on examination her right arm AV fistula does not have any bruit or thrill. There is some pulsatility noted. Contact surgery today for possible declot. We will plan for dialysis after I will also reach out to her primary photo optics technician. discussed with Dr. Wong.
--- NOTE | 2020-06-12 09:14 | PCM.CON.CC ---
Problem List (1) GI bleed Status: Acute Qualifiers: GI bleed type/associated pathology: melena Qualified Code(s): K92.1 - Melena (2) ESRD (end stage renal disease) on dialysis Status: Acute (3) Hypotension Status: Acute Qualifiers: Hypotension type: unspecified hypotension type Qualified Code(s): I95.9 - Hypotension, unspecified (4) Problem with dialysis access Status: Acute Qualifiers: Encounter type: initial encounter Qualified Code(s): T82.898A - Other specified complication of vascular prosthetic devices, implants and grafts, initial encounter Reason for Consult Date of Consultation: 06/12/20 Reason for Consultation: Hypotension History of Present Illness: The patient is a 60 year old F, with past medical history listed below, who presented to [facility] on 06/11/2020 secondary to severe anemia and melanotic stools. Patient reportedly has a history of end-stage renal disease on hemodialysis, hypertension and GERD also. Patient reportedly had had melanotic stools for about a week and is currently on aspirin and Eliquis. Patient reportedly has been admitted to the hospital recently with pulmonary embolism leading to cardiac arrest and this is why she is on Eliquis. Patient reportedly was feeling unwell yesterday and missed her dialysis. Patient had had severe nausea and vomited. No abdominal pain, hematemesis or hematochezia been reported. At the outside facility, patient was noted to have systolic blood pressure in the 120s and received a fluid bolus. On arrival to the PCU, patient was afebrile with a blood pressure of 85/34, tachypneic at 22 and 94% on 6 L. Patient reportedly is on 3 L nasal cannula at baseline for unclear etiology. Patient does state that her has not been feeling well. Covid testing was negative. Hemoglobin was noted at 5.6 with a calcium of 6.5. Creatinine was elevated at 8.79. Patient's normal chief vendor quality is in [place]. Patient is a very poor historian and not able to provide much additional history. Since being here, patient had a rapid response and was transferred to the intensive care unit. Patient has required a nonrebreather/Ventimask to maintain saturations. Patient has had multiple access issues associated with hemodialysis. Patient states that Dr. Berry placed her last fistula, but dialysis nurse had reported that this had clotted. Review of systems otherwise negative from a constitutional, HEENT, respiratory, cardiovascular, GI, genitourinary, musculoskeletal, skin, neurologic, psychiatric and hematologic system unless stated above. Past Medical History Medical History: Medical History (Last Reviewed 01/09/20 @ 09:17 by Alisha Her) Problem with dialysis access (Acute) T82.898A Diabetes E11.9 GERD (gastroesophageal reflux disease) K21.9 High cholesterol E78.00 Renal failure N19 COPD (chronic obstructive pulmonary disease) J44.9 HTN (hypertension) I10 Allergies Penicillins Adverse Reaction (Verified 01/09/20 09:17) Nausea/Vom/Diarrhea Home Medications: Ambulatory Orders Medication Instructions Recorded Amlodipine [Norvasc] 10 mg PO DAILY 05/16/17 Carvedilol [Coreg (Beta Hal)] 12.5 mg PO BID 05/16/17 apixaban 2.5 mg tablet 2.5 mg PO BID 06/13/19 aspirin 81 mg tablet,delayed 81 mg PO DAILY 06/13/19 release atorvastatin 10 mg tablet 10 mg PO DAILY 06/13/19 hydralazine 50 mg tablet 50 mg PO TID tab 06/13/19 omeprazole 20 mg capsule,delayed 20 mg PO DAILY 06/13/19 release sevelamer carbonate 800 mg tablet 800 mg PO TIDCM tab 06/13/19 Folic Acid/Vit B Complex and C 0.8 mg PO DAILY 08/07/19 [Renal-Martin Tablet] Insulin Aspart [Novolog Flexpen] 8 units SQ DINNER 06/11/20 Insulin Aspart [Novolog Flexpen] 15 units SQ BREAKFAST 06/11/20 Surgical History: Surgical History (Last Reviewed 01/09/20 @ 09:17 by Alisha Her) S/P arteriovenous (AV) fistula creation Z98.890 S/P laparoscopic cholecystectomy Z90.49 S/P tubal ligation Z98.51 Surgical History: cholecystectomy - Tubal ligation, - - status post tubal ligation Psychiatric History: No pertinent psych hx [employer]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 Patient does not have any significant pulmonary edema or pleural effusions noted. - Physical Exam Vitals/I&O's: Vital Signs Temp Pulse Resp BP Pulse Ox 35.8 C L 74 24 H 116/51 L 94 06/12/20 04:00 06/12/20 07:12 06/12/20 07:12 06/12/20 07:12 06/12/20 07:12 Oxygen Flow Rate (L/min) 15 Oxygen Delivery Method Venturi Mask Weight: 57.017 kg Body Mass Index (BMI) 22.3 Intake and Output for Last 24 Hours 06/10/20 06/11/20 06/12/20 23:59 23:59 23:59 Intake Total 2775 / 2775 959.17 / 959.17 Balance 2775 / 2775 959.17 / 959.17 General: Alert, Oriented x3, Cooperative, No apparent distress - On Ventimask HEENT: Atraumatic, PERRLA, EOMI, Normocephalic, - - No scleral icterus or injection noted Oral: Moist Mucosa, No Gingival or Mucosal Lesions/ Ulcerations Neck: Supple, No JVD, No Nodes, Trachea Midline, - - Palpable line in left neck/supraclavicular area Lungs: Clear to auscultation, Normal air movement, No rhonchi, No wheeze, No rales Cardiovascular: Regular rate, Regular Rhythm, Normal S1, Normal S2, No murmurs, No rub noted, No Gallop Abdomen: Bowel Sounds Present, Soft, Non Tender, Non-Distended Extremities: No clubbing, No cyanosis, No edema Skin: No rashes, No breakdown Musculoskeletal: No Tenderness to Palpation of Joints or Extremities Lymphatic: No Cervical, Supraclavicular, or Inguinal Adenopathy Neurological: Cranial nerves II-XII grossly intact, Neuro grossly intact, Motor Exam 5/5 strength throughout Psych/Mental Status: Alert and oriented to time, place, person, mood and affect Laboratory Results 06/11/20 17:13: Sodium 140, Potassium 6.5 H*, Chloride 108 H, Carbon Dioxide 21.0, Anion Gap 11, BUN 107 H*, Creatinine 8.79 H*, Estim Creat Clear Calc 4.89, Est GFR (MDRD) Af Amer 6 L, Est GFR (MDRD) Non-Af 5 L, BUN/Creatinine Ratio 12.2, Glucose 191 H, Calcium 8.1 L, Total Bilirubin 0.40, AST 11 L, ALT 16, Alkaline Phosphatase 80, Total Protein 6.4, Albumin 2.6 L, Globulin 3.8, Albumin/Globulin Ratio 0.7 L 06/11/20 17:13: Blood Type A NEGATIVE, Antibody Screen NEGATIVE, Crossmatch See Detail 06/11/20 17:13: WBC 14.2 H, RBC 2.06 L, Hgb 5.6 L*, Hct 19.5 L, MCV 94.7, MCH 27.2, MCHC 28.7 L, RDW Std Deviation 59.5 H, RDW Coeff of Mamta 17.9 H, Plt Count 402, MPV 10.3, Immature Gran % (Auto) 0.800, Neut % (Auto) 86.9 H, Lymph % (Auto) 8.5 L, Kershaw % (Auto) 3.3, Eos % (Auto) 0.1, Baso % (Auto) 0.4, Absolute Neuts (auto) 12.3 H, Absolute Lymphs (auto) 1.20, Nucleated RBC % 0, Diff Path Review Anitra alaniz, Platelet Estimate [facility], RBC Morphology N CHROM, Hypochromasia 1+, Anisocytosis 1+, Macrocytosis 1+ 06/11/20 17:13: Crossmatch See Detail 06/11/20 17:13: Crossmatch See Detail 06/11/20 17:36: POC Glucose 209 H 06/11/20 17:48: COVID-19 (ASIA) Negative 06/11/20 20:58: POC Glucose 180 H 06/11/20 21:19: Specimen Type MARCUS, VBG pH 7.17 L*, VBG pO2 30, VBG HCO3 18 L, VBG Total CO2 20 L, VBG O2 Sat (Calc) 42 L, VBG Base Excess -10 L, POC Mix VBG pCO2 Pt Tmp 49.4, O2 Delivery Device NRB 06/11/20 23:40: WBC 26.1 H, RBC 3.83 L, Hgb 11.5 L, Hct 34.9 L, MCV 91.1, MCH 30.0, MCHC 33.0 D, RDW Std Deviation 50.3 H, RDW Coeff of Mamta 15.5 H, Plt Count 287, MPV 10.0, Immature Gran % (Auto) 1.800 H, Neut % (Auto) 90.8 H, Lymph % (Auto) 2.7 L, Kershaw % (Auto) 4.4, Eos % (Auto) 0.0, Baso % (Auto) 0.3, Absolute Neuts (auto) 23.7 H, Absolute Lymphs (auto) 0.71 L, Nucleated RBC % 0.1, Differential Comment SCANNED, Platelet Estimate ADEQUATE, Polychromasia RARE, Hypochromasia RARE, Anisocytosis 1+, Macrocytosis 1+ 06/11/20 23:40: Sodium 143, Potassium 6.3 H*, Chloride 112 H, Carbon Dioxide 19.0 L, Anion Gap 12, BUN 93 H, Creatinine 7.41 H*, Estim Creat Clear Calc 5.80, Est GFR (MDRD) Af Amer 7 L, Est GFR (MDRD) Non-Af 6 L, BUN/Creatinine Ratio 12.6, Glucose 242 H, Calcium 6.9 L 06/12/20 04:00: WBC 23.7 H, RBC 3.94 L, Hgb 11.6 L, Hct 35.7 L, MCV 90.6, MCH 29.4, MCHC 32.5, RDW Std Deviation 51.4 H, RDW Coeff of Mamta 15.9 H, Plt Count 293, MPV 10.1, Immature Gran % (Auto) 1.100 H, Neut % (Auto) 90.5 H, Lymph % (Auto) 3.7 L, Kershaw % (Auto) 4.5, Eos % (Auto) 0.0, Baso % (Auto) 0.2, Absolute Neuts (auto) 21.5 H, Absolute Lymphs (auto) 0.87, Nucleated RBC % 0.1 06/12/20 04:00: Sodium 140, Potassium 5.5 H, Chloride 110 H, Carbon Dioxide 18.0 L, Anion Gap 12, BUN 94 H, Creatinine 7.55 H*, Estim Creat Clear Calc 5.69, Est GFR (MDRD) Af Amer 7 L, Est GFR (MDRD) Non-Af 6 L, BUN/Creatinine Ratio 12.5, Glucose 218 H, Calcium 6.9 L, Total Bilirubin 0.60, AST 126 H, ALT 112 H, Alkaline Phosphatase 152 H, Total Protein 5.8 L, Albumin 2.3 L, Globulin 3.5, Albumin/Globulin Ratio 0.7 L 06/12/20 04:00: Hep Bs Antigen Pending Current Medications Albuterol/Ipratropium (Ipratropium/Albuterol Sulfate 3 Ml Ampul.Neb) 3 ml INHALATION Q4H.RT SONIA Last Admin: 06/12/20 06:47 Dose: 3 ml Documented by: Pantoprazole Sodium 80 mg/ (Sodium Chloride) 100 mls @ 10 mls/hr CONT INF Q10H SONIA Last Admin: 06/12/20 05:28 Dose: 10 mls/hr Documented by: Sodium Chloride () 1,000 mls @ 50 mls/hr IV .Q20H SONIA Last Admin: 06/12/20 05:31 Dose: 50 mls/hr Documented by: Levofloxacin (Levaquin Iv) 500 mg in 100 mls @ 100 mls/hr IV Q48H SONIA Sodium Chloride () 250 mls @ 15 mls/hr IV .[id number] PRN PRN Reason: Saline Flush Sodium Chloride () 250 mls @ 15 mls/hr IV .[id number] PRN PRN Reason: Additional IVPB Infusion Prochlorperazine Edisylate (Prochlorperazine 10 Mg/2 Ml Vial) 5 mg IV Q6H PRN PRN PRN Reason: NAUSEA/VOMITING Sodium Chloride (0.9% Saline Lock 10 Ml Syringe) 10 - 40 ml IV UD PRN PRN Reason: SALINE FLUSH Last Admin: 06/12/20 04:40 Dose: 20 ml Documented by: Clinical Impression(s) from Imaging Studies Chest X-Ray 06/11/20 16:55 IMPRESSION: Poorly defined pulmonary opacity of the mid left lung and atelectasis or infiltrate in the left lung base with small effusion. Pneumonic infiltrates are possible. Electronically Signed: Sukhdeep Corbin MD at 18:52 EST , Service support , Assessment/Plan Active and Suspected Problems (Last Reviewed 01/09/20 @ 09:17 by Alisha Her) GI bleed (Acute) ESRD (end stage renal disease) on dialysis (Acute) Hypotension (Acute) Severe anemia (Acute) RECOMMENDATIONS: 1. Agree with empiric antibiotics 2. Defer to surgery on timing of EGD 3. Consult vascular for possible fistula intervention 4. Dialysis per nephrology 5. Repeat x-ray IMPRESSIONS: 1. Acute upper GI bleed Patient with melanotic stools on presentation. Patient has not had a stool recently. Unclear if this is secondary to gastritis versus ulcer. Surgery has been consulted. 2. Acute blood loss anemia/hypovolemic shock Unclear etiology. Patient reportedly recently had a PE with cardiac arrest presumably from a saddle embolus. Unclear timing. However, patient has had a significant decrease in H&H. Patient will likely require visualization of the stomach as risk is high with both anticoagulation and lack of anticoagulation given this new additional history. Patient appears to be volume resuscitated at this time. Would hold on additional volume that is not blood. 3. End-stage renal disease with hyperkalemia Patient with multiple sites of access in the past that have failed. Patient currently has a clot in her active fistula. Will likely need to get vascular surgery to evaluate to see if this can be used. Patient may have had an issue secondary to hemodynamic instability during previous attempts. Patient would likely benefit from dialysis if possible. 4. Acute on chronic hypoxic respiratory failure Unclear etiology. Patient did have an infiltrate in the left base and may have a pneumonia given leukocytosis and hypothermia. Reasonable to continue with Levaquin for now at renal dosing. Another possibility would be fluid overload given volume received and lack of renal output. Will obtain a chest x-ray to evaluate for possible CHF as an etiology. This would require volume removal. 5. History of lung mass/PE/cardiac arrest/multiple access issues for dialysis Complicates care, management, recovery and prognosis. Patient will likely require visualization of the stomach as she is at high risk of complications of PE without anticoagulation. Patient may need to be reinitiated on a heparin drip and monitored. Inpatient E&M: 99831 Init Hosp L3
--- NOTE | 2020-06-12 09:25 | RAD_ITS ---
STUDY: X-RAY CHEST REASON FOR EXAM: Female, 60 years old. HYPOXIA TECHNIQUE: Single AP portable view of the chest. COMPARISON: Comparison is made with prior study dated 06/11/2020. FINDINGS: A large bore catheter is seen in the left subclavian vein into the brachiocephalic and into the superior vena cava. Vascular stent is seen in the left subclavian region and axillary region. EKG electrodes are seen. Stable focal infiltrate in the lateral aspect of the right upper lobe as well at the right lung base with blunting of the left costal phrenic angle. The left lower lobe infiltrate has progressed. Mild increased markings in the right infrahilar region. Normal size heart. Normal mediastinum and camille. Normal visualized pulmonary arteries. There is atherosclerotic calcification of the aortic arch with tortuosity. Normal visualized thoracic spine. Normal visualized ribs, clavicles, and shoulders. There is no demonstrated abnormality of the visualized soft tissue structures of the upper abdomen. RAD/Chest 1 View (Portable) IMPRESSION: Progressive pleural parenchymal changes at the left lung base as well as increased markings in the right infrahilar region. Stable infiltrate in the peripheral aspect of the left mid lung. Electronically Signed: Kleber Oates, at 10:48 EST , Service support ,
[2020-06-12 09:44] LABS: Hepatitis B Surface Antigen Non-Reactive (Nonreactive)
--- NOTE | 2020-06-12 10:49 | CON.PCM_ITS ---
Problem List (1) Problem with dialysis access Status: Acute Qualifiers: Encounter type: initial encounter Qualified Code(s): T82.898A - Other specified complication of vascular prosthetic devices, implants and grafts, initial encounter Reason for Consult Date of Consultation: 06/12/20 History of Present Illness: The patient is a 60 year old F who I have been asked to see because of the thrombosis of a transposed right upper extremity basilic vein to brachial artery arteriovenous hemodialysis fistula. November 2019 I created this fistula with a transposition. The patient has had a previous left upper extremity fistula. She has had difficulties with fistula thrombosis. She is managed on chronic Eliquis therapy to assist with this. Apparently yesterday she became hypotensive. It is difficult for me to decipher how long her pressures were low but clearly for period of time. She had presented with a GI bleed. A rapid response was also initiated on her and she was transferred to the unit. Apparently brief dialysis was performed but canceled because of blood pressure intolerance. Apparently then the patient was detected as having a thrombosed fistula sometime this morning. An additional significant problem includes a GI bleed. Dr. Allen is evaluating him for this. He is planning a esophagogastroduodenoscopy sometime today as well. The patient apparently by report requires dialysis today. Because of the GI bleed she has been taken off her anticoagulants. She is currently on a Ventimask. She states that she has been having hemodialysis at the dialysis center as an outpatient with absolutely no difficulties up until this time. He states that they did not have any trouble with flow rates. She did not have any clotting trouble at the outpatient center either. This is the first time that there has been difficulties with the right upper extremity fistula. She did have a previous duplex ultrasound of the fistula on January 23 2020 which actually demonstrated that it was a slightly high flow fistula. Past Medical History Medical History: Medical History (Last Reviewed 01/09/20 @ 09:17 by Alisha Her) Problem with dialysis access (Acute) T82.898A Diabetes E11.9 GERD (gastroesophageal reflux disease) K21.9 High cholesterol E78.00 Renal failure N19 COPD (chronic obstructive pulmonary disease) J44.9 HTN (hypertension) I10 Allergies Penicillins Adverse Reaction (Verified 01/09/20 09:17) Nausea/Vom/Diarrhea Home Medications: Ambulatory Orders Medication Instructions Recorded Amlodipine [Norvasc] 10 mg PO DAILY 05/16/17 Carvedilol [Coreg (Beta Hal)] 12.5 mg PO BID 05/16/17 apixaban 2.5 mg tablet 2.5 mg PO BID 06/13/19 aspirin 81 mg tablet,delayed 81 mg PO DAILY 06/13/19 release atorvastatin 10 mg tablet 10 mg PO DAILY 06/13/19 hydralazine 50 mg tablet 50 mg PO TID tab 06/13/19 omeprazole 20 mg capsule,delayed 20 mg PO DAILY 06/13/19 release sevelamer carbonate 800 mg tablet 800 mg PO TIDCM tab 06/13/19 Folic Acid/Vit B Complex and C 0.8 mg PO DAILY 08/07/19 [Renal-Martin Tablet] Insulin Aspart [Novolog Flexpen] 8 units SQ DINNER 06/11/20 Insulin Aspart [Novolog Flexpen] 15 units SQ BREAKFAST 06/11/20 Surgical History: Surgical History (Last Reviewed 01/09/20 @ 09:17 by Alisha Her) S/P arteriovenous (AV) fistula creation Z98.890 S/P laparoscopic cholecystectomy Z90.49 S/P tubal ligation Z98.51 Surgical History: cholecystectomy - Tubal ligation, - - status post tubal ligation Psychiatric History: No pertinent psych hx 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 She denies any dysfunction of the right hand Patient Problems: Active and Suspected Problems (Last Reviewed 01/09/20 @ 09:17 by Alisha Her) GI bleed (Acute) ESRD (end stage renal disease) on dialysis (Acute) Hypotension (Acute) Severe anemia (Acute) Problem with dialysis access (Acute) - Physical Exam Vitals/I&O's: Vital Signs Temp Pulse Resp BP Pulse Ox 96.5 F L 77 23 H 127/57 H 92 06/12/20 04:00 06/12/20 10:00 06/12/20 10:00 06/12/20 10:00 06/12/20 10:00 Oxygen Flow Rate (L/min) 15 Oxygen Delivery Method Venturi Mask Weight: 125 lb 11.2 oz Body Mass Index (BMI) 22.3 Intake and Output for Last 24 Hours 06/10/20 06/11/20 06/12/20 23:59 23:59 23:59 Intake Total 2775 / 2775 959.17 / 959.17 Balance 2775 / 2775 959.17 / 959.17 General: Alert, - - Patient appears weak and pale and tachypneic Extremities: - - Right upper extremity demonstrates a warm hand. There is a 2+ right radial pulse. The fistula is identified in the right upper arm. It is pulsatile. There is no thrill or bruit. There is no erythema. Laboratory Results 06/11/20 17:13: Sodium 140, Potassium 6.5 H*, Chloride 108 H, Carbon Dioxide 21.0, Anion Gap 11, BUN 107 H*, Creatinine 8.79 H*, Estim Creat Clear Calc 4.89, Est GFR (MDRD) Af Amer 6 L, Est GFR (MDRD) Non-Af 5 L, BUN/Creatinine Ratio 12.2, Glucose 191 H, Calcium 8.1 L, Total Bilirubin 0.40, AST 11 L, ALT 16, Alkaline Phosphatase 80, Total Protein 6.4, Albumin 2.6 L, Globulin 3.8, Albumin/Globulin Ratio 0.7 L 06/11/20 17:13: Blood Type A NEGATIVE, Antibody Screen NEGATIVE, Crossmatch See Detail 06/11/20 17:13: WBC 14.2 H, RBC 2.06 L, Hgb 5.6 L*, Hct 19.5 L, MCV 94.7, MCH 27.2, MCHC 28.7 L, RDW Std Deviation 59.5 H, RDW Coeff of Mamta 17.9 H, Plt Count 402, MPV 10.3, Immature Gran % (Auto) 0.800, Neut % (Auto) 86.9 H, Lymph % (Auto) 8.5 L, [place] % (Auto) 3.3, Eos % (Auto) 0.1, Baso % (Auto) 0.4, Absolute Neuts (auto) 12.3 H, Absolute Lymphs (auto) 1.20, Nucleated RBC % 0, Diff Path Review May foll, Platelet Estimate SLT INC, RBC Morphology N CHROM, Hypochromasia 1+, Anisocytosis 1+, Macrocytosis 1+ 06/11/20 17:13: Crossmatch See Detail 06/11/20 17:13: Crossmatch See Detail 06/11/20 17:36: POC Glucose 209 H 06/11/20 17:48: COVID-19 (ASIA) Negative 06/11/20 20:58: POC Glucose 180 H 06/11/20 21:19: Specimen Type MARCUS, VBG pH 7.17 L*, VBG pO2 30, VBG HCO3 18 L, VBG Total CO2 20 L, VBG O2 Sat (Calc) 42 L, VBG Base Excess -10 L, POC Mix VBG pCO2 Pt Tmp 49.4, O2 Delivery Device NRB 06/11/20 23:40: WBC 26.1 H, RBC 3.83 L, Hgb 11.5 L, Hct 34.9 L, MCV 91.1, MCH 30.0, MCHC 33.0 D, RDW Std Deviation 50.3 H, RDW Coeff of Mamta 15.5 H, Plt Count 287, MPV 10.0, Immature Gran % (Auto) 1.800 H, Neut % (Auto) 90.8 H, Lymph % (Auto) 2.7 L, [place] % (Auto) 4.4, Eos % (Auto) 0.0, Baso % (Auto) 0.3, Absolute Neuts (auto) 23.7 H, Absolute Lymphs (auto) 0.71 L, Nucleated RBC % 0.1, Differential Comment SCANNED, Platelet Estimate ADEQUATE, Polychromasia RARE, Hypochromasia RARE, Anisocytosis 1+, Macrocytosis 1+ 06/11/20 23:40: Sodium 143, Potassium 6.3 H*, Chloride 112 H, Carbon Dioxide 19.0 L, Anion Gap 12, BUN 93 H, Creatinine 7.41 H*, Estim Creat Clear Calc 5.80, Est GFR (MDRD) Af Amer 7 L, Est GFR (MDRD) Non-Af 6 L, BUN/Creatinine Ratio 12.6, Glucose 242 H, Calcium 6.9 L 06/12/20 04:00: WBC 23.7 H, RBC 3.94 L, Hgb 11.6 L, Hct 35.7 L, MCV 90.6, MCH 29.4, MCHC 32.5, RDW Std Deviation 51.4 H, RDW Coeff of Mamta 15.9 H, Plt Count 293, MPV 10.1, Immature Gran % (Auto) 1.100 H, Neut % (Auto) 90.5 H, Lymph % (Auto) 3.7 L, [place] % (Auto) 4.5, Eos % (Auto) 0.0, Baso % (Auto) 0.2, Absolute Neuts (auto) 21.5 H, Absolute Lymphs (auto) 0.87, Nucleated RBC % 0.1 06/12/20 04:00: Sodium 140, Potassium 5.5 H, Chloride 110 H, Carbon Dioxide 18.0 L, Anion Gap 12, BUN 94 H, Creatinine 7.55 H*, Estim Creat Clear Calc 5.69, Est GFR (MDRD) Af Amer 7 L, Est GFR (MDRD) Non-Af 6 L, BUN/Creatinine Ratio 12.5, Glucose 218 H, Calcium 6.9 L, Total Bilirubin 0.60, AST 126 H, ALT 112 H, Alkaline Phosphatase 152 H, Total Protein 5.8 L, Albumin 2.3 L, Globulin 3.5, Albumin/Globulin Ratio 0.7 L 06/12/20 04:00: Hep Bs Antigen Non-Reactive Current Medications Albuterol/Ipratropium (Ipratropium/Albuterol Sulfate 3 Ml Ampul.Neb) 3 ml INHALATION Q4H.RT [facility] Last Admin: 06/12/20 06:47 Dose: 3 ml Documented by: Pantoprazole Sodium 80 mg/ (Sodium Chloride) 100 mls @ 10 mls/hr CONT INF Q10H [facility] Last Admin: 06/12/20 05:28 Dose: 10 mls/hr Documented by: Sodium Chloride () 1,000 mls @ 50 mls/hr IV .Q20H [facility] Last Admin: 06/12/20 05:31 Dose: 50 mls/hr Documented by: Levofloxacin (Levaquin Iv) 500 mg in 100 mls @ 100 mls/hr IV Q48H [facility] Sodium Chloride () 250 mls @ 15 mls/hr IV .[id number] PRN PRN Reason: Saline Flush Sodium Chloride () 250 mls @ 15 mls/hr IV .[id number] PRN PRN Reason: Additional IVPB Infusion Prochlorperazine Edisylate (Prochlorperazine 10 Mg/2 Ml Vial) 5 mg IV Q6H PRN PRN PRN Reason: NAUSEA/VOMITING Sodium Chloride (0.9% Saline Lock 10 Ml Syringe) 10 - 40 ml IV UD PRN PRN Reason: SALINE FLUSH Last Admin: 06/12/20 04:40 Dose: 20 ml Documented by: Assessment/Plan All Active Problems (Last Reviewed 01/09/20 @ 09:17 by Alisha Her) GI bleed (Acute) ESRD (end stage renal disease) on dialysis (Acute) Hypotension (Acute) Severe anemia (Acute) Problem with dialysis access (Acute) 60-year-old female with a acutely thrombosed right extremity transposed basilic vein to brachial artery AV fistula. This is likely a consequence of sustained hypotension as well as accessing it under duress with subsequent pressure applied to the puncture sites. The patient has been taken off her anticoagulants and has received blood transfusions as well. I have instructed her that we will attempt to perform a right extremity fistulogram and declot the fistula. She is aware unfortunately that this tends to be very challenging. She cannot be placed on thrombolytic therapy. She might require a tunneled dialysis catheter. As she already has had fistulas failed in the left upper extremity losing this fistula will be of great significance to her as she does not have an additional alternative site at this time. She has had an opportunity to ask and have questions answered. We will proceed to try to salvage what is occurred. Shiv Berry M.D., F.A.C.S.
--- NOTE | 2020-06-12 11:41 | CASEMGMT ---
Addendum entered by Shahzad Fabian 06/12/20 11:52: Pt receives dialysis @ [facility] MWF @5:45 am. Called facility to update on admission. Original Note: PATT MOSER Assessment. chart reviewed. Patient not able to participate in assessment at this time. Attempted to call S.O. no answer, and no messaging with name identifier. Diagnosis: Acute severe anemia. PCP: Dr. Pineda Specialist: customer accounts advisor Insurance: [facility] Pharmacy: [facility] LNOK: Richard Nick, Significant Other Living arrangements: Lives with significant other. PT/OT on hold- will follow for evaluation and recommendations for home. DME: has home oxygen. Will speak with pt/S.O re: other DME when able. DC PLAN: TBD. When patient is able to discuss, will speak with her re: home situation and any further recommendations by PT/OT. Lew WAGNER RN ACM
--- NOTE | 2020-06-12 12:09 | OP.PCM_ITS ---
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 Right upper extremity 6 x 4 [employer] Description of Surgical Findings:: Timeout and informed consent was obtained. 60-year-old female was taken to the special procedures lab placed on the table. Because of respiratory depression and urgent procedure no IV sedative was given. The right extremity sterilely prepped draped. Ultrasound was used to identify the basilic vein closer to the arterial anastomosis. 2% lidocaine was instilled as a local anesthetic. Under ultrasound guidance micropuncture needle was inserted micropuncture wire inserted 6 [place] short sheath was inserted. Isovue was was used as a contrast and about 5 cc/inj. was injected. Throughout the procedure total 40 cc was used. Fistulogram demonstrated a high-grade mid fistula stenosis with thrombus within the fistula proximal to the stenosis. An 035 angled Glidewire was advanced a 6 x 4 [employer] balloon was advanced. Unfortunately because of the patient's GI bleeding thrombolytics nor heparin angio lysis could be performed. I aspirated copiously through the sheath where I could. Heparinized fluid was used for flushing. I performed 6 x 4 [employer] angioplasty of the tight stenosis and irregular vein in that location shorter insufflation times were performed because of the thrombosis and the patient's tendencies to thrombosed. Several different insufflations were performed. Then there was evidence suggesting a more proximal stenosis adjacent to the arterial anastomosis so again using ultrasound and injecting 2% lidocaine I got retrograde access to the fistula. Placed a 6 [place] sheath dilator. The proximal fistula was then balloon dilated with the same 6 x 4 [employer] balloon. I did try to aspirate thrombus. I did try to disrupt some of the thrombus with the balloon. At the completion the fistula was running. There was some evidence of adherent thrombus. I felt that this would clear with functioning of the fistula. There was good central venous outflow. Balloons wires were removed sheath removed U suture zero 4-0 nylon was placed. At the completion there was a pulse thrill and bruit within the fistula. Blood loss was minimal. Fistulogram demonstrates mid fistula high-grade stenosis with thrombus within the fistula in the proximal portion of the fistula close to the arterial anastomosis. Subsequent to endovascular intervention the fistula now is patent. There is some evidence of thrombus adherent to the wall and the proximal and midportion of the fistula but this is not flow obstructing. There is good central venous outflow with this transposed basilic vein to brachial artery AV fistula. There is good arterial inflow. Successfully reopened and right upper extremity transposed basilic vein to brachial artery AV fistula. I anticipate residual wall thrombus to resolve with functioning of the fistula. Shiv Berry M.D., F.A.C.S. Type of Anesthesia:: Local
[2020-06-12 12:41] LABS: Pathologist Review Reviewed
--- NOTE | 2020-06-12 13:28 | PN_ITS ---
Patient Problems: Active and Suspected Problems (Last Reviewed 01/09/20 @ 09:17 by Alisha Her) GI bleed (Acute) ESRD (end stage renal disease) on dialysis (Acute) Hypotension (Acute) Severe anemia (Acute) Problem with dialysis access (Acute) Reason for Visit: GI bleed Subjective: No further bleeding. On VM, no shortness of breath. Vitals/I&O's: Vital Signs Temp Pulse Resp BP Pulse Ox 35.8 C L 82 23 H 127/57 H 92 06/12/20 04:00 06/12/20 11:00 06/12/20 10:00 06/12/20 10:00 06/12/20 10:00 Oxygen Flow Rate (L/min) 15 Oxygen Delivery Method Venturi Mask Weight: 57.017 kg Body Mass Index (BMI) 22.3 Intake and Output for Last 24 Hours 06/10/20 06/11/20 06/12/20 23:59 23:59 23:59 Intake Total 2775 / 2775 959.17 / 959.17 Balance 2775 / 2775 959.17 / 959.17 General: Alert, No apparent distress HEENT: Atraumatic, Normocephalic Oral: Moist Mucosa, No Gingival or Mucosal Lesions/ Ulcerations Neck: No Nodes, Thyroid Normal Size and Texture Lungs: Clear to auscultation, Normal air movement, No rhonchi, No wheeze, No rales Cardiovascular: Regular rate, Regular Rhythm, Normal S1, Normal S2, No murmurs Abdomen: Bowel Sounds Present, Soft, Non Tender, Non-Distended, No Hepato- splenomegaly Extremities: No edema, No Calf Tenderness Skin: No rashes, No breakdown Psych/Mental Status: Normal Affect, Appropriate Laboratory Results 06/11/20 17:13: Sodium 140, Potassium 6.5 H*, Chloride 108 H, Carbon Dioxide 21.0, Anion Gap 11, BUN 107 H*, Creatinine 8.79 H*, Estim Creat Clear Calc 4.89, Est GFR (MDRD) Af Amer 6 L, Est GFR (MDRD) Non-Af 5 L, BUN/Creatinine Ratio 12.2, Glucose 191 H, Calcium 8.1 L, Total Bilirubin 0.40, AST 11 L, ALT 16, Alkaline Phosphatase 80, Total Protein 6.4, Albumin 2.6 L, Globulin 3.8, Albumin/Globulin Ratio 0.7 L 06/11/20 17:13: Blood Type A NEGATIVE, Antibody Screen NEGATIVE, Crossmatch See Detail 06/11/20 17:13: WBC 14.2 H, RBC 2.06 L, Hgb 5.6 L*, Hct 19.5 L, MCV 94.7, MCH 27.2, MCHC 28.7 L, RDW Std Deviation 59.5 H, RDW Coeff of Mamta 17.9 H, Plt Count 402, MPV 10.3, Immature Gran % (Auto) 0.800, Neut % (Auto) 86.9 H, Lymph % (Auto) 8.5 L, [place] % (Auto) 3.3, Eos % (Auto) 0.1, Baso % (Auto) 0.4, Absolute Neuts (auto) 12.3 H, Absolute Lymphs (auto) 1.20, Nucleated RBC % 0, Diff Path Review Reviewed, Platelet Estimate T INC, RBC Morphology N CHROM, Hypochromasia 1+, Anisocytosis 1+, Macrocytosis 1+ 06/11/20 17:13: Crossmatch See Detail 06/11/20 17:13: Crossmatch See Detail 06/11/20 17:36: POC Glucose 209 H 06/11/20 17:48: COVID-19 (ASIA) Negative 06/11/20 20:58: POC Glucose 180 H 06/11/20 21:19: Specimen Type MARCUS, VBG pH 7.17 L*, VBG pO2 30, VBG HCO3 18 L, VBG Total CO2 20 L, VBG O2 Sat (Calc) 42 L, VBG Base Excess -10 L, POC Mix VBG pCO2 Pt Tmp 49.4, O2 Delivery Device NRB 06/11/20 23:40: WBC 26.1 H, RBC 3.83 L, Hgb 11.5 L, Hct 34.9 L, MCV 91.1, MCH 30.0, MCHC 33.0 D, RDW Std Deviation 50.3 H, RDW Coeff of Mamta 15.5 H, Plt Count 287, MPV 10.0, Immature Gran % (Auto) 1.800 H, Neut % (Auto) 90.8 H, Lymph % (Auto) 2.7 L, [place] % (Auto) 4.4, Eos % (Auto) 0.0, Baso % (Auto) 0.3, Absolute Neuts (auto) 23.7 H, Absolute Lymphs (auto) 0.71 L, Nucleated RBC % 0.1, Differential Comment SCANNED, Platelet Estimate ADEQUATE, Polychromasia RARE, Hypochromasia RARE, Anisocytosis 1+, Macrocytosis 1+ 06/11/20 23:40: Sodium 143, Potassium 6.3 H*, Chloride 112 H, Carbon Dioxide 19.0 L, Anion Gap 12, BUN 93 H, Creatinine 7.41 H*, Estim Creat Clear Calc 5.80, Est GFR (MDRD) Af Amer 7 L, Est GFR (MDRD) Non-Af 6 L, BUN/Creatinine Ratio 12.6, Glucose 242 H, Calcium 6.9 L 06/12/20 04:00: WBC 23.7 H, RBC 3.94 L, Hgb 11.6 L, Hct 35.7 L, MCV 90.6, MCH 29.4, MCHC 32.5, RDW Std Deviation 51.4 H, RDW Coeff of Mamta 15.9 H, Plt Count 293, MPV 10.1, Immature Gran % (Auto) 1.100 H, Neut % (Auto) 90.5 H, Lymph % (Auto) 3.7 L, [place] % (Auto) 4.5, Eos % (Auto) 0.0, Baso % (Auto) 0.2, Absolute Neuts (auto) 21.5 H, Absolute Lymphs (auto) 0.87, Nucleated RBC % 0.1 06/12/20 04:00: Sodium 140, Potassium 5.5 H, Chloride 110 H, Carbon Dioxide 18.0 L, Anion Gap 12, BUN 94 H, Creatinine 7.55 H*, Estim Creat Clear Calc 5.69, Est GFR (MDRD) Af Amer 7 L, Est GFR (MDRD) Non-Af 6 L, BUN/Creatinine Ratio 12.5, Glucose 218 H, Calcium 6.9 L, Total Bilirubin 0.60, AST 126 H, ALT 112 H, Alkaline Phosphatase 152 H, Total Protein 5.8 L, Albumin 2.3 L, Globulin 3.5, Albumin/Globulin Ratio 0.7 L 06/12/20 04:00: Hep Bs Antigen Non-Reactive Current Medications Albuterol/Ipratropium (Ipratropium/Albuterol Sulfate 3 Ml Ampul.Neb) 3 ml INHALATION Q4H.RT [facility] Last Admin: 06/12/20 06:47 Dose: 3 ml Documented by: Pantoprazole Sodium 80 mg/ (Sodium Chloride) 100 mls @ 10 mls/hr CONT INF Q10H [facility] Last Admin: 06/12/20 05:28 Dose: 10 mls/hr Documented by: Sodium Chloride () 1,000 mls @ 50 mls/hr IV .Q20H [facility] Last Admin: 06/12/20 05:31 Dose: 50 mls/hr Documented by: Levofloxacin (Levaquin Iv) 500 mg in 100 mls @ 100 mls/hr IV Q48H [facility] Sodium Chloride () 250 mls @ 15 mls/hr IV .[id number] PRN PRN Reason: Saline Flush Sodium Chloride () 250 mls @ 15 mls/hr IV .[id number] PRN PRN Reason: Additional IVPB Infusion Prochlorperazine Edisylate (Prochlorperazine 10 Mg/2 Ml Vial) 5 mg IV Q6H PRN PRN PRN Reason: NAUSEA/VOMITING Sodium Chloride (0.9% Saline Lock 10 Ml Syringe) 10 - 40 ml IV UD PRN PRN Reason: SALINE FLUSH Last Admin: 06/12/20 04:40 Dose: 20 ml Documented by: STROKE Vital Signs/Narrative: Vital Signs Pulse Resp BP Pulse Ox 06/12/20 11:00 82 06/12/20 10:00 77 23 H 127/57 H 92 Medical Necessity - Tobacco Use Smoking Status: Current every day smoker Tobacco Use: Non-smoker Assessment/Plan All Active Problems (Last Reviewed 01/09/20 @ 09:17 by Alisha Her) GI bleed (Acute) ESRD (end stage renal disease) on dialysis (Acute) Hypotension (Acute) Severe anemia (Acute) Problem with dialysis access (Acute) 1. Acute GI bleed * currently resolved * on pantoprazole * ASA and apixaban held * GS on consult for endoscopy 2. 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 Cebul * still with residual thrombus 4. ESRD * on HD * nephrology following 5. Hemorrhagic shock * 2/2 ABLA * resolved 6. hyperkalemia * resolved 7. VTE prophylaxis: SCDs. Inpatient E&M: 10318 Subs Hosp L2
--- NOTE | 2020-06-12 13:36 | OP.EGD_ITS ---
Patient Name: Eulalia Smith Procedure Date: 06/12/2020 12:38 PM Date of : 1960 Age: 60 Procedure: Upper GI endoscopy Indications: Acute post hemorrhagic anemia, Melena Providers: Jakob Allen MD Medicines: Monitored Anesthesia Care Patient Profile: This is a 60 year old female. Refer to note in patient chart for documentation of history and physical. Complications: No immediate complications. Procedure: Pre-Anesthesia Assessment: - Prior to the procedure, a History and Physical was performed, and patient medications and allergies were reviewed. The patient's tolerance of previous anesthesia was also reviewed. The risks and benefits of the procedure and the sedation options and risks were discussed with the patient. All questions were answered, and informed consent was obtained. Prior Anticoagulants: The patient has taken Eliquis (apixaban), last dose was 1 day prior to procedure. After reviewing the risks and benefits, the patient was deemed in satisfactory condition to undergo the procedure. After obtaining informed consent, the endoscope was passed under direct vision. Throughout the procedure, the patient's blood pressure, pulse, and oxygen saturations were monitored continuously. The gastroscope was introduced through the mouth, and advanced to the fourth part of duodenum. The upper GI endoscopy was accomplished without difficulty. The patient tolerated the procedure well. Scope In: 12:52:49 PM Scope Out: 12:58:12 PM Total Procedure Duration Time 0 hours 5 minutes 23 seconds Findings: The esophagus was normal. The stomach was normal. The examined duodenum was normal. Impression: - Normal esophagus. - Normal stomach. - Normal examined duodenum. - No specimens collected. Recommendation: - Return patient to ICU for ongoing care. - NPO. - Continue present medications. Procedure Code(s): --- Professional --- 94743, Esophagogastroduodenoscopy, flexible, transoral; diagnostic, including collection of specimen(s) by brushing or washing, when performed (separate procedure) Diagnosis Code(s): --- Professional --- D62, Acute posthemorrhagic anemia K92.1, Melena (includes Hematochezia) CPT copyright 2017 [employer]. All rights reserved. The codes documented in this report are preliminary and upon stitcher utility review may be revised to meet current compliance requirements. Jakob Allen MD 06/12/2020 1:36:08 PM This report has been signed electronically. Number of Addenda: 0 Note Initiated On: 06/12/2020 12:38 PM
--- NOTE | 2020-06-12 13:36 | OP.CCLET_ITS ---
06/12/2020 Ginna Pineda Md Re : Upper GI endoscopy procedure for Eulalia Smith Dear Edwin This procedure was performed on Friday, June 12, 2020. My impressions and recommendations are as follows: Impressions : - Normal esophagus. - Normal stomach. - Normal examined duodenum. - No specimens collected. Recommendations : - Return patient to ICU for ongoing care. - NPO. - Continue present medications. My findings are described in the full procedure note, which is enclosed. If I can be of further assistance, please feel free to contact me at Doctor phone number(s): , Work: . Sincerely, Jakob Allen MD 06/12/2020 1:36:08 PM This report has been signed electronically.
[2020-06-12 17:01] LABS: Partial Thromboplast Time 30.8 Seconds (24.1-36.2)
[2020-06-12] MEDS: HEPARIN/D5w 25,000 UNITS 25,000 UNITS/250 ML IV.SOLN. 8 UNITS IV (17:31)
--- NOTE | 2020-06-12 17:58 | DIALYSIS ---
HD x 3 hours complete. Tolerated tx fairly well. UF of 1300ml. Used right arm access. Only able to maintain bfr of 225 for most of the tx d/t increased arterial pressure. Dr. Sevilla is aware. Stirum removed post tx and pressure applied x 10 minutes. Hemostasis achieved. Fresh gauze and tape applied. Positive thrill/bruit noted. Report was given to PATT Osullivan.
[2020-06-13] VITALS (21 sets, daily range): BP systolic 105–137; BP diastolic 43–62; PULSE 17–91; RESP 16–24; TEMP 36.3–36.7; O2SAT 90–99
[2020-06-13 01:48] LABS: Partial Thromboplast Time 84.5 Seconds (24.1-36.2)
[2020-06-13] MEDS: Ipratropium/Albuterol Sulfate 3 ML AMPUL.NEB INHALATION ×5 (03:50→22:35)
[2020-06-13 05:24] LABS: Absolute Lymphocyte Count 1.12 X10^3/uL (0.83-4.51); Absolute Neutrophil Count 13.4 X10^3/uL (2.0-7.7); Basophil# 0.05 X10^3/uL; Basophil% 0.3 % (0-1); Eosinophil# 0.05 X10^3/uL; Eosinophils% 0.3 % (0-5); Hematocrit 33.5 % (37-47); Hemoglobin 10.7 g/dL (12.0-15.0); Lymphocyte # 1.12 X10^3/ul (4.0); Lymphocyte % 7.2 % (19-41); Mean Corp Hgb Conc 31.9 g/dL (32-36); Mean Corpuscular Hgb 29.1 pg (27.0-32.0); Mean Platelet Vol. 10.3 fl (6.2-12.0); Monocyte# 0.88 X10^3/uL; Monocyte% 5.6 % (0-10); NRBC Flagged by Analyzer 0.1 % (0-5); Neutrophil # 13.36 X10^3/uL (2.7-7.7); Neutrophil % 85.8 % (47-70); Platelet Count 275 K/mm3 (150-450); RBC Distribution Width CV 17.2 % (11.6-14.6); RBC Distribution Width SD 54.3 fl (35.1-43.9); Red Blood Count 3.68 M/mm3 (4.2-5.4); White Blood Count 15.6 K/mm3 (4.4-11.0)
[2020-06-13] MEDS: 0.9% Normal Saline 1,000 ML 50 ML IV (05:45)
[2020-06-13 05:46] LABS: Anion Gap 12 (5-15); BUN 49 mg/dL (7-18); BUN/Creat Ratio 9.4 RATIO (10-20); Calcium,Total 7.1 mg/dL (8.5-10.1); Chloride 104 mmol/L (98-107); Creatinine, Serum 5.24 mg/dL (0.55-1.02); EST Glomerular Filtration Rate 9 mL/min (>60); Est Glom Filt Rate - Afr Amer 11 mL/min (>60); Glucose 153 mg/dL (74-106); Potassium 4.4 mmol/L (3.5-5.1); Sodium Level 138 mmol/L (136-145)
--- NOTE | 2020-06-13 08:43 | PCM.PN.INT ---
Subjective: Patient did well overnight. Patient feels subjectively improved compared to previous. Patient was able to tolerate hemodialysis yesterday. No active blood loss is reported by staff or patient. General: Alert, Oriented x3, Cooperative, No apparent distress, - - No conversational dyspnea HEENT: Atraumatic, PERRLA, EOMI, Normocephalic, - - No scleral icterus or injection noted Oral: Moist Mucosa, No Gingival or Mucosal Lesions/ Ulcerations Neck: Supple, No JVD, No Nodes, Trachea Midline Lungs: No rhonchi, No wheeze, No rales, Diminished, - - Symmetric expansion. Cardiovascular: Regular rate, Regular Rhythm, Normal S1, Normal S2, No murmurs, No rub noted, No Gallop Abdomen: Bowel Sounds Present, Soft, Non Tender, Non-Distended Extremities: No clubbing, No cyanosis, Edema Skin: - - No change from previous Musculoskeletal: No Tenderness to Palpation of Joints or Extremities Lymphatic: No Cervical, Supraclavicular, or Inguinal Adenopathy Neurological: Cranial nerves II-XII grossly intact, Neuro grossly intact, Motor Exam 5/5 strength throughout Psych/Mental Status: Alert and oriented to time, place, person, mood and affect Vital Signs Temp Pulse Resp BP Pulse Ox 36.3 C L 87 19 H 105/52 L 91 06/13/20 04:00 06/13/20 08:00 06/13/20 08:00 06/13/20 08:00 06/13/20 08:00 Oxygen Flow Rate (L/min) 6 Oxygen Delivery Method Nasal Cannula Weight: 56.382 kg Body Mass Index (BMI) 22.3 Intake and Output for Last 24 Hours 06/11/20 06/12/20 06/13/20 23:59 23:59 23:59 Intake Total 2775 / 2775 1050.34 / 1050.34 1171.2 / 1171.2 Output Total 475 / 475 Balance 2775 / 2775 1050.34 / 975.34 696.2 / 696.2 Labs (Last 48 Hours) 06/11/20 06/11/20 06/11/20 17:13 17:13 17:13 WBC 14.2 H RBC 2.06 L Hgb 5.6 L* Hct 19.5 L MCV 94.7 MCH 27.2 MCHC 28.7 L RDW Std Deviation 59.5 H RDW Coeff of Mamta 17.9 H Plt Count 402 MPV 10.3 Immature Gran % (Auto) 0.800 Neut % (Auto) 86.9 H Lymph % (Auto) 8.5 L Leslie % (Auto) 3.3 Eos % (Auto) 0.1 Baso % (Auto) 0.4 Absolute Neuts (auto) 12.3 H Absolute Lymphs (auto) 1.20 Nucleated RBC % 0 Differential Comment Diff Path Review Reviewed Platelet Estimate SLT INC RBC Morphology N CHROM Polychromasia Hypochromasia 1+ Anisocytosis 1+ Macrocytosis 1+ APTT Specimen Type VBG pH VBG pO2 VBG HCO3 VBG Total CO2 VBG O2 Sat (Calc) VBG Base Excess POC Mix VBG pCO2 Pt Tmp O2 Delivery Device Sodium 140 Potassium 6.5 H* Chloride 108 H Carbon Dioxide 21.0 Anion Gap 11 BUN 107 H* Creatinine 8.79 H* Estim Creat Clear Calc 4.89 Est GFR (MDRD) Af Amer 6 L Est GFR (MDRD) Non-Af 5 L BUN/Creatinine Ratio 12.2 Glucose 191 H Calcium 8.1 L Total Bilirubin 0.40 AST 11 L ALT 16 Alkaline Phosphatase 80 Total Protein 6.4 Albumin 2.6 L Globulin 3.8 Albumin/Globulin Ratio 0.7 L COVID-19 (ASAI) Hep Bs Antigen POC Glucose Blood Type A NEGATIVE Antibody Screen NEGATIVE Crossmatch See Detail 06/11/20 06/11/20 06/11/20 17:13 17:13 17:36 WBC RBC Hgb Hct MCV MCH MCHC RDW Std Deviation RDW Coeff of Mamta Plt Count MPV Immature Gran % (Auto) Neut % (Auto) Lymph % (Auto) Leslie % (Auto) Eos % (Auto) Baso % (Auto) Absolute Neuts (auto) Absolute Lymphs (auto) Nucleated RBC % Differential Comment Diff Path Review Platelet Estimate RBC Morphology Polychromasia Hypochromasia Anisocytosis Macrocytosis APTT Specimen Type VBG pH VBG pO2 VBG HCO3 VBG Total CO2 VBG O2 Sat (Calc) VBG Base Excess POC Mix VBG pCO2 Pt Tmp O2 Delivery Device Sodium Potassium Chloride Carbon Dioxide Anion Gap BUN Creatinine Estim Creat Clear Calc Est GFR (MDRD) Af Amer Est GFR (MDRD) Non-Af BUN/Creatinine Ratio Glucose Calcium Total Bilirubin AST ALT Alkaline Phosphatase Total Protein Albumin Globulin Albumin/Globulin Ratio COVID-19 (ASIA) Hep Bs Antigen POC Glucose 209 H Blood Type Antibody Screen Crossmatch See Detail See Detail 06/11/20 06/11/20 06/11/20 17:48 20:58 21:19 WBC RBC Hgb Hct MCV MCH MCHC RDW Std Deviation RDW Coeff of Mamta Plt Count MPV Immature Gran % (Auto) Neut % (Auto) Lymph % (Auto) [place] % (Auto) Eos % (Auto) Baso % (Auto) Absolute Neuts (auto) Absolute Lymphs (auto) Nucleated RBC % Differential Comment Diff Path Review Platelet Estimate RBC Morphology Polychromasia Hypochromasia Anisocytosis Macrocytosis APTT Specimen Type MARCUS VBG pH 7.17 L* VBG pO2 30 VBG HCO3 18 L VBG Total CO2 20 L VBG O2 Sat (Calc) 42 L VBG Base Excess -10 L POC Mix VBG pCO2 Pt Tmp 49.4 O2 Delivery Device NRB Sodium Potassium Chloride Carbon Dioxide Anion Gap BUN Creatinine Estim Creat Clear Calc Est GFR (MDRD) Af Amer Est GFR (MDRD) Non-Af BUN/Creatinine Ratio Glucose Calcium Total Bilirubin AST ALT Alkaline Phosphatase Total Protein Albumin Globulin Albumin/Globulin Ratio COVID-19 (ASIA) Negative Hep Bs Antigen POC Glucose 180 H Blood Type Antibody Screen Crossmatch 06/11/20 06/11/20 06/12/20 23:40 23:40 04:00 WBC 26.1 H 23.7 H RBC 3.83 L 3.94 L Hgb 11.5 L 11.6 L Hct 34.9 L 35.7 L MCV 91.1 90.6 MCH 30.0 29.4 MCHC 33.0 D 32.5 RDW Std Deviation 50.3 H 51.4 H RDW Coeff of Mamta 15.5 H 15.9 H Plt Count 287 293 MPV 10.0 10.1 Immature Gran % (Auto) 1.800 H 1.100 H Neut % (Auto) 90.8 H 90.5 H Lymph % (Auto) 2.7 L 3.7 L Leslie % (Auto) 4.4 4.5 Eos % (Auto) 0.0 0.0 Baso % (Auto) 0.3 0.2 Absolute Neuts (auto) 23.7 H 21.5 H Absolute Lymphs (auto) 0.71 L 0.87 Nucleated RBC % 0.1 0.1 Differential Comment SCANNED Diff Path Review Platelet Estimate ADEQUATE RBC Morphology Polychromasia RARE Hypochromasia RARE Anisocytosis 1+ Macrocytosis 1+ APTT Specimen Type VBG pH VBG pO2 VBG HCO3 VBG Total CO2 VBG O2 Sat (Calc) VBG Base Excess POC Mix VBG pCO2 Pt Tmp O2 Delivery Device Sodium 143 Potassium 6.3 H* Chloride 112 H Carbon Dioxide 19.0 L Anion Gap 12 BUN 93 H Creatinine 7.41 H* Estim Creat Clear Calc 5.80 Est GFR (MDRD) Af Amer 7 L Est GFR (MDRD) Non-Af 6 L BUN/Creatinine Ratio 12.6 Glucose 242 H Calcium 6.9 L Total Bilirubin AST ALT Alkaline Phosphatase Total Protein Albumin Globulin Albumin/Globulin Ratio COVID-19 (ASIA) Hep Bs Antigen POC Glucose Blood Type Antibody Screen Crossmatch 06/12/20 06/12/20 06/12/20 04:00 04:00 15:55 WBC RBC Hgb Hct MCV MCH MCHC RDW Std Deviation RDW Coeff of Mamta Plt Count MPV Immature Gran % (Auto) Neut % (Auto) Lymph % (Auto) Leslie % (Auto) Eos % (Auto) Baso % (Auto) Absolute Neuts (auto) Absolute Lymphs (auto) Nucleated RBC % Differential Comment Diff Path Review Platelet Estimate RBC Morphology Polychromasia Hypochromasia Anisocytosis Macrocytosis APTT 30.8 Specimen Type VBG pH VBG pO2 VBG HCO3 VBG Total CO2 VBG O2 Sat (Calc) VBG Base Excess POC Mix VBG pCO2 Pt Tmp O2 Delivery Device Sodium 140 Potassium 5.5 H Chloride 110 H Carbon Dioxide 18.0 L Anion Gap 12 BUN 94 H Creatinine 7.55 H* Estim Creat Clear Calc 5.69 Est GFR (MDRD) Af Amer 7 L Est GFR (MDRD) Non-Af 6 L BUN/Creatinine Ratio 12.5 Glucose 218 H Calcium 6.9 L Total Bilirubin 0.60 AST 126 H ALT 112 H Alkaline Phosphatase 152 H Total Protein 5.8 L Albumin 2.3 L Globulin 3.5 Albumin/Globulin Ratio 0.7 L COVID-19 (ASIA) Hep Bs Antigen Non-Reactive POC Glucose Blood Type Antibody Screen Crossmatch 06/13/20 06/13/20 06/13/20 00:40 01:25 05:15 WBC 15.6 H RBC 3.68 L Hgb 10.7 L Hct 33.5 L MCV 91.0 MCH 29.1 MCHC 31.9 L RDW Std Deviation 54.3 H RDW Coeff of Mamta 17.2 H Plt Count 275 MPV 10.3 Immature Gran % (Auto) 0.800 Neut % (Auto) 85.8 H Lymph % (Auto) 7.2 L Leslie % (Auto) 5.6 Eos % (Auto) 0.3 Baso % (Auto) 0.3 Absolute Neuts (auto) 13.4 H Absolute Lymphs (auto) 1.12 Nucleated RBC % 0.1 Differential Comment Diff Path Review Platelet Estimate RBC Morphology Polychromasia Hypochromasia Anisocytosis Macrocytosis APTT Cancelled 84.5 H Specimen Type VBG pH VBG pO2 VBG HCO3 VBG Total CO2 VBG O2 Sat (Calc) VBG Base Excess POC Mix VBG pCO2 Pt Tmp O2 Delivery Device Sodium Potassium Chloride Carbon Dioxide Anion Gap BUN Creatinine Estim Creat Clear Calc Est GFR (MDRD) Af Amer Est GFR (MDRD) Non-Af BUN/Creatinine Ratio Glucose Calcium Total Bilirubin AST ALT Alkaline Phosphatase Total Protein Albumin Globulin Albumin/Globulin Ratio COVID-19 (ASIA) Hep Bs Antigen POC Glucose Blood Type Antibody Screen Crossmatch 06/13/20 05:15 WBC RBC Hgb Hct MCV MCH MCHC RDW Std Deviation RDW Coeff of Mamta Plt Count MPV Immature Gran % (Auto) Neut % (Auto) Lymph % (Auto) Leslie % (Auto) Eos % (Auto) Baso % (Auto) Absolute Neuts (auto) Absolute Lymphs (auto) Nucleated RBC % Differential Comment Diff Path Review Platelet Estimate RBC Morphology Polychromasia Hypochromasia Anisocytosis Macrocytosis APTT Specimen Type VBG pH VBG pO2 VBG HCO3 VBG Total CO2 VBG O2 Sat (Calc) VBG Base Excess POC Mix VBG pCO2 Pt Tmp O2 Delivery Device Sodium 138 Potassium 4.4 Chloride 104 Carbon Dioxide 22.0 Anion Gap 12 BUN 49 H Creatinine 5.24 H Estim Creat Clear Calc 8.20 Est GFR (MDRD) Af Amer 11 L Est GFR (MDRD) Non-Af 9 L BUN/Creatinine Ratio 9.4 L Glucose 153 H Calcium 7.1 L Total Bilirubin AST ALT Alkaline Phosphatase Total Protein Albumin Globulin Albumin/Globulin Ratio COVID-19 (ASIA) Hep Bs Antigen POC Glucose Blood Type Antibody Screen Crossmatch Clinical Impression(s) from Imaging Studies Chest X-Ray 06/12/20 09:25 IMPRESSION: Progressive pleural parenchymal changes at the left lung base as well as increased markings in the right infrahilar region. Stable infiltrate in the peripheral aspect of the left mid lung. Electronically Signed: Kleber Oates, at 10:48 EST , Service support , Medical Necessity - Tobacco Use Smoking Status: Current every day smoker Tobacco Use: Non-smoker Assessment/Plan All Active Problems (Last Reviewed 01/09/20 @ 09:17 by Alisha Her) GI bleed (Acute) ESRD (end stage renal disease) on dialysis (Acute) Hypotension (Acute) Severe anemia (Acute) Problem with dialysis access (Acute) RECOMMENDATIONS: 1. Agree with empiric antibiotics pending culture data 2. Initiation of clear diet if okay with surgery. Continue heparin for another 24 hours 3. Volume removal per dialysis with nephrology recommendations 4. Walking oximetry prior to discharge 5. Okay to leave the intensive care unit from my perspective IMPRESSIONS: 1. Acute upper GI bleed Patient with melanotic stools on presentation. Patient has not had a stool recently. Upper GI was unremarkable. Patient has been placed on a PPI and tolerating well. No bleeding has been reported and H&H remained stable. Likely okay to initiate p.o. clears diet if okay with surgery. 2. Acute blood loss anemia/hypovolemic shock Unclear etiology. Patient reportedly recently had a PE with cardiac arrest presumably from a saddle embolus. Unclear timing. However, patient has had a significant decrease in H&H. Patient is hemodynamically stable at this time. Would continue with heparin drip for anticoagulation for another 24 hours prior to initiation of p.o. equivalent. 3. End-stage renal disease with hyperkalemia Patient with multiple sites of access in the past that have failed. Patient currently has a clot in her active fistula. Patient was able to have hemodialysis yesterday. Good response to therapy on laboratory evaluation. Defer to nephrology on timing and volume removal for hemodialysis. Patient does still appear to be somewhat fluid overload and this may help with oxygenation status. 4. Acute on chronic hypoxic respiratory failure Unclear etiology. Patient did have an infiltrate in the left base and may have a pneumonia given leukocytosis and hypothermia. Reasonable to continue with Levaquin for now at renal dosing. Another possibility would be fluid overload given volume received and lack of renal output. Would prefer to have additional volume removed with dialysis as tolerated. 5. History of lung mass/PE/cardiac arrest/multiple access issues for dialysis Complicates care, management, recovery and prognosis. Patient will likely require visualization of the stomach as she is at high risk of complications of PE without anticoagulation. CT scan can be completed as an outpatient. No indication for evaluation of lung mass as an inpatient. Inpatient E&M: [id number] [facility] Hosp L3
--- NOTE | 2020-06-13 09:02 | PN.SURG_ITS ---
Patient Problems: Active and Suspected Problems (Last Reviewed 01/09/20 @ 09:17 by Alisha Her) GI bleed (Acute) ESRD (end stage renal disease) on dialysis (Acute) Hypotension (Acute) Severe anemia (Acute) Problem with dialysis access (Acute) Subjective: The patient had a bowel movement which was green this morning. She had no nausea or vomiting. - Physical Exam Vitals/I&O's: Vital Signs Temp Pulse Resp BP Pulse Ox 97.4 F L 87 19 H 105/52 L 91 06/13/20 04:00 06/13/20 08:00 06/13/20 08:00 06/13/20 08:00 06/13/20 08:00 Oxygen Flow Rate (L/min) 6 Oxygen Delivery Method Nasal Cannula Weight: 124 lb 4.8 oz Body Mass Index (BMI) 22.3 Intake and Output for Last 24 Hours 06/11/20 06/12/20 06/13/20 23:59 23:59 23:59 Intake Total 2775 / 2775 1050.34 / 1050.34 1171.2 / 1171.2 Output Total 475 / 475 Balance 2775 / 2775 1050.34 / 975.34 696.2 / 696.2 General: Alert, Oriented x3 Lungs: Normal air movement Abdomen: Soft, Non Tender, Non-Distended Laboratory Results 06/11/20 17:13: Diff Path Review Reviewed 06/12/20 04:00: Hep Bs Antigen Non-Reactive 06/12/20 15:55: APTT 30.8 06/13/20 00:40: APTT Cancelled 06/13/20 01:25: APTT 84.5 H 06/13/20 05:15: WBC 15.6 H, RBC 3.68 L, Hgb 10.7 L, Hct 33.5 L, MCV 91.0, MCH 29.1, MCHC 31.9 L, RDW Std Deviation 54.3 H, RDW Coeff of Mamta 17.2 H, Plt Count 275, MPV 10.3, Immature Gran % (Auto) 0.800, Neut % (Auto) 85.8 H, Lymph % (Auto) 7.2 L, [place] % (Auto) 5.6, Eos % (Auto) 0.3, Baso % (Auto) 0.3, Absolute Neuts (auto) 13.4 H, Absolute Lymphs (auto) 1.12, Nucleated RBC % 0.1 06/13/20 05:15: Sodium 138, Potassium 4.4, Chloride 104, Carbon Dioxide 22.0, Anion Gap 12, BUN 49 H, Creatinine 5.24 H, Estim Creat Clear Calc 8.20, Est GFR (MDRD) Af Amer 11 L, Est GFR (MDRD) Non-Af 9 L, BUN/Creatinine Ratio 9.4 L, Glucose 153 H, Calcium 7.1 L Current Medications Albuterol/Ipratropium (Ipratropium/Albuterol Sulfate 3 Ml Ampul.Neb) 3 ml INHALATION Q4H.RT [facility] Last Admin: 06/13/20 07:51 Dose: 3 ml Documented by: Pantoprazole Sodium 80 mg/ (Sodium Chloride) 100 mls @ 10 mls/hr CONT INF Q10H [facility] Last Admin: 06/13/20 08:15 Dose: Not Given Documented by: Sodium Chloride () 1,000 mls @ 50 mls/hr IV .Q20H [facility] Last Admin: 06/13/20 05:45 Dose: 50 mls/hr Documented by: Levofloxacin (Levaquin Iv) 500 mg in 100 mls @ 100 mls/hr IV Q48H [facility] Sodium Chloride () 250 mls @ 15 mls/hr IV .[id number] PRN PRN Reason: Saline Flush Sodium Chloride () 250 mls @ 15 mls/hr IV .[id number] PRN PRN Reason: Additional IVPB Infusion Heparin Sodium/Dextrose () 25,000 units in 250 mls @ 8 mls/hr IV .[id number] [facility]; Protocol Last Titration: 06/13/20 02:25 Dose: 700 units/hr, 7 mls/hr Documented by: Prochlorperazine Edisylate (Prochlorperazine 10 Mg/2 Ml Vial) 5 mg IV Q6H PRN PRN PRN Reason: NAUSEA/VOMITING Sodium Chloride (0.9% Saline Lock 10 Ml Syringe) 10 - 40 ml IV UD PRN PRN Reason: SALINE FLUSH Last Admin: 06/12/20 04:40 Dose: 20 ml Documented by: Medical Necessity - Tobacco Use Smoking Status: Current every day smoker Tobacco Use: Non-smoker Assessment/Plan All Active Problems (Last Reviewed 01/09/20 @ 09:17 by Alisha Her) GI bleed (Acute) ESRD (end stage renal disease) on dialysis (Acute) Hypotension (Acute) Severe anemia (Acute) Problem with dialysis access (Acute) 60-year-old female with GI bleed 1. I was unable to localize a reason for her GI bleed on upper endoscopy yesterday. The patient has not had any obvious bleeding overnight. I would recommend continuing PPI and starting a clear liquid diet. She can advance as tolerated. Continue heparin before resuming Eliquis for 24 more hours to see if she bleeds and if not she can resume oral anticoagulation. If the patient continues to do well and not bleed she can follow-up for an outpatient colonoscopy if desired. Jakob Allen MD Pager: [facility] [address] [place] [address], [address] [place] [address] Office:
--- NOTE | 2020-06-13 11:32 | PN_ITS ---
Patient Problems: Active and Suspected Problems (Last Reviewed 01/09/20 @ 09:17 by Alisha Her) GI bleed (Acute) ESRD (end stage renal disease) on dialysis (Acute) Hypotension (Acute) Severe anemia (Acute) Problem with dialysis access (Acute) Reason for Visit: GI bleed Subjective: No further bleeding. Vitals/I&O's: Vital Signs Temp Pulse Resp BP Pulse Ox 36.3 C L 17 L 18 129/56 H 95 06/13/20 04:00 06/13/20 09:00 06/13/20 09:00 06/13/20 09:00 06/13/20 10:30 Oxygen Flow Rate (L/min) 6 Oxygen Delivery Method Nasal Cannula Weight: 56.382 kg Body Mass Index (BMI) 22.3 Intake and Output for Last 24 Hours 06/11/20 06/12/20 06/13/20 23:59 23:59 23:59 Intake Total 2775 / 2775 1050.34 / 1050.34 1171.2 / 1171.2 Output Total 475 / 475 Balance 2775 / 2775 1050.34 / 975.34 696.2 / 696.2 General: Alert, No apparent distress HEENT: Atraumatic, Normocephalic Oral: Moist Mucosa, No Gingival or Mucosal Lesions/ Ulcerations Neck: No Nodes, Thyroid Normal Size and Texture Lungs: Clear to auscultation, Normal air movement, No rhonchi, No wheeze Cardiovascular: Regular rate, Regular Rhythm, Normal S1, Normal S2 Abdomen: Bowel Sounds Present, Soft, Non Tender, Non-Distended Psych/Mental Status: Normal Affect, Appropriate Laboratory Results 06/11/20 17:13: Diff Path Review Reviewed 06/12/20 15:55: APTT 30.8 06/13/20 00:40: APTT Cancelled 06/13/20 01:25: APTT 84.5 H 06/13/20 05:15: WBC 15.6 H, RBC 3.68 L, Hgb 10.7 L, Hct 33.5 L, MCV 91.0, MCH 29.1, MCHC 31.9 L, RDW Std Deviation 54.3 H, RDW Coeff of Mamta 17.2 H, Plt Count 275, MPV 10.3, Immature Gran % (Auto) 0.800, Neut % (Auto) 85.8 H, Lymph % (Auto) 7.2 L, [place] % (Auto) 5.6, Eos % (Auto) 0.3, Baso % (Auto) 0.3, Absolute Neuts (auto) 13.4 H, Absolute Lymphs (auto) 1.12, Nucleated RBC % 0.1 06/13/20 05:15: Sodium 138, Potassium 4.4, Chloride 104, Carbon Dioxide 22.0, Anion Gap 12, BUN 49 H, Creatinine 5.24 H, Estim Creat Clear Calc 8.20, Est GFR (MDRD) Af Amer 11 L, Est GFR (MDRD) Non-Af 9 L, BUN/Creatinine Ratio 9.4 L, Glucose 153 H, Calcium 7.1 L Current Medications Albuterol/Ipratropium (Ipratropium/Albuterol Sulfate 3 Ml Ampul.Neb) 3 ml INHALATION Q4H.RT [facility] Last Admin: 06/13/20 07:51 Dose: 3 ml Documented by: Pantoprazole Sodium 80 mg/ (Sodium Chloride) 100 mls @ 10 mls/hr CONT INF Q10H [facility] Last Admin: 06/13/20 08:15 Dose: Not Given Documented by: Levofloxacin (Levaquin Iv) 500 mg in 100 mls @ 100 mls/hr IV Q48H [facility] Sodium Chloride () 250 mls @ 15 mls/hr IV .[id number] PRN PRN Reason: Saline Flush Sodium Chloride () 250 mls @ 15 mls/hr IV .[id number] PRN PRN Reason: Additional IVPB Infusion Heparin Sodium/Dextrose () 25,000 units in 250 mls @ 8 mls/hr IV .[id number] [facility]; Protocol Last Titration: 06/13/20 02:25 Dose: 700 units/hr, 7 mls/hr Documented by: Prochlorperazine Edisylate (Prochlorperazine 10 Mg/2 Ml Vial) 5 mg IV Q6H PRN PRN PRN Reason: NAUSEA/VOMITING Sodium Chloride (0.9% Saline Lock 10 Ml Syringe) 10 - 40 ml IV UD PRN PRN Reason: SALINE FLUSH Last Admin: 06/12/20 04:40 Dose: 20 ml Documented by: STROKE Vital Signs/Narrative: Vital Signs Pulse Resp BP Pulse Ox 06/13/20 10:30 95 06/13/20 09:00 17 L 18 129/56 H 98 06/13/20 08:00 87 19 H 105/52 L 91 06/13/20 07:51 85 21 H Medical Necessity - Tobacco Use Smoking Status: Current every day smoker Tobacco Use: Non-smoker Assessment/Plan All Active Problems (Last Reviewed 01/09/20 @ 09:17 by Alisha Her) GI bleed (Acute) ESRD (end stage renal disease) on dialysis (Acute) Hypotension (Acute) Severe anemia (Acute) Problem with dialysis access (Acute) 1. Acute GI bleed * currently resolved * on pantoprazole gtt, changed to PO * ASA and apixaban held * EGD unremarkable * outpt c-scope 2. 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 Berry * still with residual thrombus 4. ESRD * on HD * nephrology following 5. Hemorrhagic shock * 2/2 ABLA * resolved 6. hyperkalemia * resolved 7. H/O PE * on hep gtt * resume NOAC in 24 h if stable. 8. VTE prophylaxis: SCDs. Inpatient E&M: [id number] Subs Hosp L2
[2020-06-13 12:07] LABS: Partial Thromboplast Time 101.8 Seconds (24.1-36.2)
[2020-06-13] MEDS: Pantoprazole Sodium 40 MG Tablet PO ×2 (12:10→20:45)
[2020-06-13 12:20] LABS: Base Excess -7 mmol/L (-2 to +2); Bicarbonate 18.2 mmol/L (22-26); Blood Gas Specimen Type ART; FI02 44; PO2 55 mmHG (75-100); SITE L Radial; SO2 89 % (95-99); Total Carbon Dioxide 19 mmol/L; pCO2 29.3 mmHg (35-45)
--- NOTE | 2020-06-13 18:00 | PCM.PN.REN ---
Patient Problems: Active and Suspected Problems (Last Reviewed 01/09/20 @ 09:17 by Alisha Her) GI bleed (Acute) ESRD (end stage renal disease) on dialysis (Acute) Hypotension (Acute) Severe anemia (Acute) Problem with dialysis access (Acute) Subjective: No nausea No vomiting No SOB. tolerated HD session well yesterday - Physical Exam Vitals/I&O's: Vital Signs Temp Pulse Resp BP Pulse Ox 97.7 F L 90 24 H 122/50 H 92 06/13/20 15:54 06/13/20 15:54 06/13/20 15:54 06/13/20 15:54 06/13/20 15:54 Oxygen Flow Rate (L/min) 3 Oxygen Delivery Method Nasal Cannula Weight: 56.382 kg Body Mass Index (BMI) 22.3 Intake and Output for Last 24 Hours 06/11/20 06/12/20 06/13/20 23:59 23:59 23:59 Intake Total 2775 / 2775 1050.34 / 1050.34 1849.22 / 1849.22 Output Total 725 / 725 Balance 2775 / 2775 1050.34 / 975.34 1124.22 / 1124.22 General: Alert, Oriented x3 HEENT: Atraumatic Oral: Moist Mucosa Neck: Supple, No JVD Lungs: Clear to auscultation, Normal air movement, No rhonchi Cardiovascular: Regular rate, Regular Rhythm, Normal S1 Abdomen: Bowel Sounds Present, Soft, Non Tender, Non-Distended Extremities: No clubbing, No cyanosis Skin: No rashes Musculoskeletal: No Tenderness to Palpation of Joints or Extremities Lymphatic: No Cervical, Supraclavicular, or Inguinal Adenopathy Neurological: Cranial nerves II-XII grossly intact, Neuro grossly intact Psych/Mental Status: Appropriate Laboratory Results 06/13/20 00:40: APTT Cancelled 06/13/20 01:25: APTT 84.5 H 06/13/20 05:15: WBC 15.6 H, RBC 3.68 L, Hgb 10.7 L, Hct 33.5 L, MCV 91.0, MCH 29.1, MCHC 31.9 L, RDW Std Deviation 54.3 H, RDW Coeff of Mamta 17.2 H, Plt Count 275, MPV 10.3, Immature Gran % (Auto) 0.800, Neut % (Auto) 85.8 H, Lymph % (Auto) 7.2 L, [place] % (Auto) 5.6, Eos % (Auto) 0.3, Baso % (Auto) 0.3, Absolute Neuts (auto) 13.4 H, Absolute Lymphs (auto) 1.12, Nucleated RBC % 0.1 06/13/20 05:15: Sodium 138, Potassium 4.4, Chloride 104, Carbon Dioxide 22.0, Anion Gap 12, BUN 49 H, Creatinine 5.24 H, Estim Creat Clear Calc 8.20, Est GFR (MDRD) Af Amer 11 L, Est GFR (MDRD) Non-Af 9 L, BUN/Creatinine Ratio 9.4 L, Glucose 153 H, Calcium 7.1 L 06/13/20 11:40: APTT 101.8 H* 06/13/20 12:13: Specimen Type ART, Sample Site L Radial, pH 7.40, Bicarbonate Actual 18.2 L, Total CO2 19, Base Excess -7 L, O2 Saturation 89 L, O2 % 44, ABG pCO2 29.3 L, ABG pO2 55 L Current Medications Albuterol/Ipratropium (Ipratropium/Albuterol Sulfate 3 Ml Ampul.Neb) 3 ml INHALATION Q4H.RT [facility]ON[facility] Last Admin: 06/13/20 15:43 Dose: 3 ml Documented by: Levofloxacin (Levaquin Iv) 500 mg in 100 mls @ 100 mls/hr IV Q48H [facility] Sodium Chloride () 250 mls @ 15 mls/hr IV .[id number] PRN PRN Reason: Saline Flush Sodium Chloride () 250 mls @ 15 mls/hr IV .[id number] PRN PRN Reason: Additional IVPB Infusion Heparin Sodium/Dextrose () 25,000 units in 250 mls @ 8 mls/hr IV .[id number] [facility]; Protocol Last Titration: 06/13/20 16:00 Dose: 500 units/hr, 5 mls/hr Documented by: Pantoprazole Sodium (Pantoprazole Sodium 40 Mg Tablet) 40 mg PO BID [facility] Prochlorperazine Edisylate (Prochlorperazine 10 Mg/2 Ml Vial) 5 mg IV Q6H PRN PRN PRN Reason: NAUSEA/VOMITING Sodium Chloride (0.9% Saline Lock 10 Ml Syringe) 10 - 40 ml IV UD PRN PRN Reason: SALINE FLUSH Last Admin: 06/12/20 04:40 Dose: 20 ml Documented by: Medical Necessity - Tobacco Use Smoking Status: Current every day smoker Tobacco Use: Non-smoker Assessment/Plan All Active Problems (Last Reviewed 01/09/20 @ 09:17 by Alisha Her) GI bleed (Acute) ESRD (end stage renal disease) on dialysis (Acute) Hypotension (Acute) Severe anemia (Acute) Problem with dialysis access (Acute) 1- ESRD : On MWF HD schedule last HD Session 06/12. Next session 06/15 2- clotted RUE AVF s/p declotting . seems function well. 3- hyperkalemia resolved with HD 5- GI bleed. s/p 4 RBC transfusion s/p EGD no source of bleeding Will continue to follow
--- NOTE | 2020-06-13 19:19 | NURSING ---
report called to [facility], to PCU 107 per WC
[2020-06-13] MEDS: Heparin Injection (Vial) 5,000 UNIT/ML VIAL IV (20:39)
[2020-06-13] MEDS: levoFLOXacin IV 500 MG/100 ML BAG 100 MG IV (20:40)
[2020-06-13] MEDS: 0.9% Saline Lock 10 ML Syringe IV (20:45)
[2020-06-14] VITALS (19 sets, daily range): BP systolic 101–118; BP diastolic 43–57; PULSE 72–88; RESP 16–20; TEMP 36.3–37.3; O2SAT 86–94
[2020-06-14 03:20] LABS: Absolute Lymphocyte Count 0.86 X10^3/uL (0.83-4.51); Absolute Neutrophil Count 11.8 X10^3/uL (2.0-7.7); Basophil# 0.05 X10^3/uL; Basophil% 0.4 % (0-1); Eosinophil# 0.08 X10^3/uL; Eosinophils% 0.6 % (0-5); Hematocrit 32.6 % (37-47); Hemoglobin 10.4 g/dL (12.0-15.0); Lymphocyte # 0.86 X10^3/ul (4.0); Lymphocyte % 6.1 % (19-41); Mean Corp Hgb Conc 31.9 g/dL (32-36); Mean Corpuscular Hgb 28.9 pg (27.0-32.0); Mean Corpuscular Volume 90.6 fL (81-99); Mean Platelet Vol. 10.3 fl (6.2-12.0); Monocyte# 1.17 X10^3/uL; Monocyte% 8.3 % (0-10); NRBC Flagged by Analyzer 0.2 % (0-5); Neutrophil # 11.76 X10^3/uL (2.7-7.7); Neutrophil % 83.7 % (47-70); Platelet Count 234 K/mm3 (150-450); RBC Distribution Width CV 17.3 % (11.6-14.6); RBC Distribution Width SD 54.8 fl (35.1-43.9)
[2020-06-14] MEDS: 0.9% Saline Lock 10 ML Syringe IV ×2 (03:21→18:48)
[2020-06-14] MEDS: proCHLORPERazine 10 MG/2 ML Vial 5 MG IV ×2 (03:21→18:48)
[2020-06-14 04:02] LABS: Partial Thromboplast Time 140.5 Seconds (24.1-36.2)
[2020-06-14] MEDS: Ipratropium/Albuterol Sulfate 3 ML AMPUL.NEB INHALATION ×5 (04:04→22:48)
[2020-06-14 04:27] LABS: Anion Gap 11 (5-15); BUN 60 mg/dL (7-18); BUN/Creat Ratio 9.6 RATIO (10-20); Calcium,Total 7.4 mg/dL (8.5-10.1); Chloride 102 mmol/L (98-107); Creatinine, Serum 6.24 mg/dL (0.55-1.02); EST Glomerular Filtration Rate 7 mL/min (>60); Est Glom Filt Rate - Afr Amer 9 mL/min (>60); Estimated Creatinine Clearance 6.89 ml/min; Glucose 284 mg/dL (74-106); Potassium 4.4 mmol/L (3.5-5.1); Sodium Level 134 mmol/L (136-145)
[2020-06-14] MEDS: HEPARIN/D5w 25,000 UNITS 25,000 UNITS/250 ML IV.SOLN. 4 UNITS IV (06:06)
--- NOTE | 2020-06-14 08:02 | PN.SURG_ITS ---
Patient Problems: Active and Suspected Problems (Last Reviewed 01/09/20 @ 09:17 by Alisha Her) GI bleed (Acute) ESRD (end stage renal disease) on dialysis (Acute) Hypotension (Acute) Severe anemia (Acute) Problem with dialysis access (Acute) Subjective: Patient reported some mild nausea yesterday but she is not having any nausea today. Her abdomen is soft and nontender with no bleeding. - Physical Exam Vitals/I&O's: Vital Signs Temp Pulse Resp BP Pulse Ox 97.8 F 86 17 108/57 L 94 06/14/20 06:04 06/14/20 07:31 06/14/20 06:04 06/14/20 06:04 06/14/20 06:04 Oxygen Flow Rate (L/min) 5 Oxygen Delivery Method Nasal Cannula Weight: 132 lb 7.965 oz Body Mass Index (BMI) 22.3 Intake and Output for Last 24 Hours 06/12/20 06/13/20 06/14/20 23:59 23:59 23:59 Intake Total 1050.34 / 1050.34 2787.06 / 2887.06 391.33 / 391.33 Output Total 725 / 725 Balance 1050.34 / 975.34 2062.06 / 2162.06 391.33 / 391.33 General: Alert, Oriented x3 Neck: No JVD Lungs: Normal air movement Cardiovascular: Regular rate, Regular Rhythm Abdomen: Soft, Non Tender, Non-Distended Laboratory Results 06/13/20 11:40: APTT 101.8 H* 06/13/20 12:13: Specimen Type ART, Sample Site L Radial, pH 7.40, Bicarbonate Actual 18.2 L, Total CO2 19, Base Excess -7 L, O2 Saturation 89 L, O2 % 44, ABG pCO2 29.3 L, ABG pO2 55 L 06/13/20 19:45: APTT 40.0 H 06/14/20 02:57: WBC 14.0 H, RBC 3.60 L, Hgb 10.4 L, Hct 32.6 L, MCV 90.6, MCH 28.9, MCHC 31.9 L, RDW Std Deviation 54.8 H, RDW Coeff of Mamta 17.3 H, Plt Count 234, MPV 10.3, Immature Gran % (Auto) 0.900, Neut % (Auto) 83.7 H, Lymph % (Auto) 6.1 L, [place] % (Auto) 8.3, Eos % (Auto) 0.6, Baso % (Auto) 0.4, Absolute Neuts (auto) 11.8 H, Absolute Lymphs (auto) 0.86, Nucleated RBC % 0.2 06/14/20 02:57: Sodium 134 L, Potassium 4.4, Chloride 102, Carbon Dioxide 21.0, Anion Gap 11, BUN 60 H, Creatinine 6.24 H, Estim Creat Clear Calc 6.89, Est GFR (MDRD) Af Amer 9 L, Est GFR (MDRD) Non-Af 7 L, BUN/Creatinine Ratio 9.6 L, Glucose 284 H, Calcium 7.4 L 06/14/20 02:57: APTT 140.5 H* Current Medications Albuterol/Ipratropium (Ipratropium/Albuterol Sulfate 3 Ml Ampul.Neb) 3 ml INHALATION Q4H.RT [facility] Last Admin: 06/14/20 07:17 Dose: 3 ml Documented by: Heparin Sodium (Porcine) (Heparin Injection (Vial) 5,000 Unit/Ml Vial) 0 unit IV UD PRN; Protocol PRN Reason: dose adjustment Last Admin: 06/13/20 20:39 Dose: 3,000 unit Documented by: Levofloxacin (Levaquin Iv) 500 mg in 100 mls @ 100 mls/hr IV Q48H [facility] Last Infusion: 06/13/20 21:47 Dose: Infused Documented by: Sodium Chloride () 250 mls @ 15 mls/hr IV .[id number] PRN PRN Reason: Saline Flush Sodium Chloride () 250 mls @ 15 mls/hr IV .[id number] PRN PRN Reason: Additional IVPB Infusion Heparin Sodium/Dextrose () 25,000 units in 250 mls @ 8 mls/hr IV .[id number] [facility]; Protocol Last Admin: 06/14/20 06:06 Dose: 400 units/hr, 4 mls/hr Documented by: Pantoprazole Sodium (Pantoprazole Sodium 40 Mg Tablet) 40 mg PO BID [facility] Last Admin: 06/13/20 20:45 Dose: 40 mg Documented by: Prochlorperazine Edisylate (Prochlorperazine 10 Mg/2 Ml Vial) 5 mg IV Q6H PRN PRN PRN Reason: NAUSEA/VOMITING Last Admin: 06/14/20 03:21 Dose: 5 mg Documented by: Sodium Chloride (0.9% Saline Lock 10 Ml Syringe) 10 - 40 ml IV UD PRN PRN Reason: SALINE FLUSH Last Admin: 06/14/20 03:21 Dose: 10 ml Documented by: Medical Necessity - Tobacco Use Smoking Status: Current every day smoker Tobacco Use: Non-smoker Assessment/Plan All Active Problems (Last Reviewed 01/09/20 @ 09:17 by Alisha Her) GI bleed (Acute) ESRD (end stage renal disease) on dialysis (Acute) Hypotension (Acute) Severe anemia (Acute) Problem with dialysis access (Acute) 60-year-old female with GI bleed 1. The patient is doing well and tolerating clear liquids. She did have some mild nausea last night but no nausea today. She has not had any bleeding or melena since being restarted on a heparin drip. The patient reports her last colonoscopy was many years ago and I would recommend an outpatient colonoscopy to ensure that the bleeding was not from the colon. At this time since the patient has been on heparin for over 24 hours with no resumption of bleeding I believe the patient can be resumed on her oral anticoagulation. The patient has a good thrill in her right upper extremity fistula. 2. I will also restart the patient on a regular diet. Jakob Allen MD Pager: [facility] [address] [place] [address], [address] [place] [address] Office:
--- NOTE | 2020-06-14 08:48 | PCM.PN.INT ---
Subjective: Patient transferred out of the intensive care unit yesterday. No bleeding is reported by nursing or patient. Patient is not reporting any chest pain and feels shortness of breath has improved. Patient is still requiring increased nasal cannula oxygen to maintain saturations. Patient did not receive hemodialysis yesterday. General: Alert, Oriented x3, Cooperative, No apparent distress, Well developed, Well nourished, - - No conversational dyspnea HEENT: Atraumatic, PERRLA, EOMI, Normocephalic, - - Slight injection without icterus Oral: Moist Mucosa, No Gingival or Mucosal Lesions/ Ulcerations Neck: Supple, No Nodes, Trachea Midline, JVD, Right Lungs: No rhonchi, No wheeze, Diminished, Rales - Right base Cardiovascular: Regular rate, Regular Rhythm, Normal S1, Normal S2, No murmurs, No rub noted, No Gallop Abdomen: Bowel Sounds Present, Soft, Non Tender, Non-Distended Extremities: No clubbing, No cyanosis, Edema - Trace lower extremity Skin: No rashes, No breakdown Musculoskeletal: No Tenderness to Palpation of Joints or Extremities Lymphatic: No Cervical, Supraclavicular, or Inguinal Adenopathy Neurological: Cranial nerves II-XII grossly intact, Neuro grossly intact, Motor Exam 5/5 strength throughout Psych/Mental Status: Alert and oriented to time, place, person, mood and affect Vital Signs Temp Pulse Resp BP Pulse Ox 36.6 C 86 17 108/57 L 94 06/14/20 06:04 06/14/20 07:31 06/14/20 06:04 06/14/20 06:04 06/14/20 06:04 Oxygen Flow Rate (L/min) 5 Oxygen Delivery Method Nasal Cannula Weight: 60.1 kg Body Mass Index (BMI) 22.3 Intake and Output for Last 24 Hours 06/12/20 06/13/20 06/14/20 23:59 23:59 23:59 Intake Total 1050.34 / 1050.34 2787.06 / 2887.06 391.33 / 391.33 Output Total 725 / 725 Balance 1050.34 / 975.34 2062.06 / 2162.06 391.33 / 391.33 Labs (Last 48 Hours) 06/11/20 06/12/20 06/12/20 17:13 04:00 15:55 WBC RBC Hgb Hct MCV MCH MCHC RDW Std Deviation RDW Coeff of Mamta Plt Count MPV Immature Gran % (Auto) Neut % (Auto) Lymph % (Auto) [place] % (Auto) Eos % (Auto) Baso % (Auto) Absolute Neuts (auto) Absolute Lymphs (auto) Nucleated RBC % Diff Path Review Reviewed APTT 30.8 Specimen Type Sample Site pH Bicarbonate Actual Total CO2 Base Excess O2 Saturation O2 % ABG pCO2 ABG pO2 Sodium Potassium Chloride Carbon Dioxide Anion Gap BUN Creatinine Estim Creat Clear Calc Est GFR (MDRD) Af Amer Est GFR (MDRD) Non-Af BUN/Creatinine Ratio Glucose Calcium Hep Bs Antigen Non-Reactive 06/13/20 06/13/20 06/13/20 00:40 01:25 05:15 WBC 15.6 H RBC 3.68 L Hgb 10.7 L Hct 33.5 L MCV 91.0 MCH 29.1 MCHC 31.9 L RDW Std Deviation 54.3 H RDW Coeff of Mamta 17.2 H Plt Count 275 MPV 10.3 Immature Gran % (Auto) 0.800 Neut % (Auto) 85.8 H Lymph % (Auto) 7.2 L [place] % (Auto) 5.6 Eos % (Auto) 0.3 Baso % (Auto) 0.3 Absolute Neuts (auto) 13.4 H Absolute Lymphs (auto) 1.12 Nucleated RBC % 0.1 [address] Review APTT Cancelled 84.5 H Specimen Type Sample Site pH Bicarbonate Actual Total CO2 Base Excess O2 Saturation O2 % ABG pCO2 ABG pO2 Sodium Potassium Chloride Carbon Dioxide Anion Gap BUN Creatinine Estim Creat Clear Calc Est GFR (MDRD) Af Amer Est GFR (MDRD) Non-Af BUN/Creatinine Ratio Glucose Calcium Hep Bs Antigen 06/13/20 06/13/20 06/13/20 05:15 11:40 12:13 WBC RBC Hgb Hct MCV MCH MCHC RDW Std Deviation RDW Coeff of Mamta Plt Count MPV Immature Gran % (Auto) Neut % (Auto) Lymph % (Auto) [place] % (Auto) Eos % (Auto) Baso % (Auto) Absolute Neuts (auto) Absolute Lymphs (auto) Nucleated RBC % Diff Path Review APTT 101.8 H* Specimen Type ART Sample Site L Radial pH 7.40 Bicarbonate Actual 18.2 L Total CO2 19 Base Excess -7 L O2 Saturation 89 L O2 % 44 ABG pCO2 29.3 L ABG pO2 55 L Sodium 138 Potassium 4.4 Chloride 104 Carbon Dioxide 22.0 Anion Gap 12 BUN 49 H Creatinine 5.24 H Estim Creat Clear Calc 8.20 Est GFR (MDRD) Af Amer 11 L Est GFR (MDRD) Non-Af 9 L BUN/Creatinine Ratio 9.4 L Glucose 153 H Calcium 7.1 L Hep Bs Antigen 06/13/20 06/14/20 06/14/20 19:45 02:57 02:57 WBC 14.0 H RBC 3.60 L Hgb 10.4 L Hct 32.6 L MCV 90.6 MCH 28.9 MCHC 31.9 L RDW Std Deviation 54.8 H RDW Coeff of Mamta 17.3 H Plt Count 234 MPV 10.3 Immature Gran % (Auto) 0.900 Neut % (Auto) 83.7 H Lymph % (Auto) 6.1 L [place] % (Auto) 8.3 Eos % (Auto) 0.6 Baso % (Auto) 0.4 Absolute Neuts (auto) 11.8 H Absolute Lymphs (auto) 0.86 Nucleated RBC % 0.2 Diff Path Review APTT 40.0 H Specimen Type Sample Site pH Bicarbonate Actual Total CO2 Base Excess O2 Saturation O2 % ABG pCO2 ABG pO2 Sodium 134 L Potassium 4.4 Chloride 102 Carbon Dioxide 21.0 Anion Gap 11 BUN 60 H Creatinine 6.24 H Estim Creat Clear Calc 6.89 Est GFR (MDRD) Af Amer 9 L Est GFR (MDRD) Non-Af 7 L BUN/Creatinine Ratio 9.6 L Glucose 284 H Calcium 7.4 L Hep Bs Antigen 06/14/20 02:57 WBC RBC Hgb Hct MCV MCH MCHC RDW Std Deviation RDW Coeff of Mamta Plt Count MPV Immature Gran % (Auto) Neut % (Auto) Lymph % (Auto) [place] % (Auto) Eos % (Auto) Baso % (Auto) Absolute Neuts (auto) Absolute Lymphs (auto) Nucleated RBC % Diff Path Review APTT 140.5 H* Specimen Type Sample Site pH Bicarbonate Actual Total CO2 Base Excess O2 Saturation O2 % ABG pCO2 ABG pO2 Sodium Potassium Chloride Carbon Dioxide Anion Gap BUN Creatinine Estim Creat Clear Calc Est GFR (MDRD) Af Amer Est GFR (MDRD) Non-Af BUN/Creatinine Ratio Glucose Calcium Hep Bs Antigen Medical Necessity - Tobacco Use Smoking Status: Current every day smoker Tobacco Use: Non-smoker Assessment/Plan All Active Problems (Last Reviewed 01/09/20 @ 09:17 by Alisha Her) GI bleed (Acute) ESRD (end stage renal disease) on dialysis (Acute) Hypotension (Acute) Severe anemia (Acute) Problem with dialysis access (Acute) RECOMMENDATIONS: 1. Likely okay to discontinue antibiotics from my perspective 2. Defer to surgery on transition to p.o. anticoagulation 3. Volume removal per dialysis with nephrology recommendations 4. Walking oximetry prior to discharge 5. Oxygenation will likely resolve to normal with volume removal IMPRESSIONS: 1. Acute upper GI bleed Patient with melanotic stools on presentation. Patient has not had a stool recently. Upper GI was unremarkable. Patient has been placed on a PPI and tolerating well. No bleeding has been reported and H&H remained stable. Advance diet and transition to p.o. anticoagulation per surgery. 2. Acute blood loss anemia/hypovolemic shock Unclear etiology. Patient reportedly recently had a PE with cardiac arrest presumably from a saddle embolus. Unclear timing. However, patient has had a significant decrease in H&H. Patient is hemodynamically stable at this time. Defer to surgery on transition back to p.o. anticoagulation. Given recent saddle embolus, therapy for 6 to 9 months would be indicated 3. End-stage renal disease with hyperkalemia Patient with multiple sites of access in the past that have failed. Patient had a clot in her active fistula. Patient was able to have hemodialysis yesterday. Good response to therapy on laboratory evaluation. Defer to nephrology on timing and volume removal for hemodialysis. Patient does still appear to be somewhat fluid overload and this may help with oxygenation status. 4. Acute on chronic hypoxic respiratory failure Unclear etiology. Patient did have an infiltrate in the left base and may have a pneumonia given leukocytosis and hypothermia. Okay to discontinue antibiotics from my perspective. Another possibility would be fluid overload given volume received and lack of renal output. Would prefer to have additional volume removed with dialysis as tolerated. 5. History of lung mass/PE/cardiac arrest/multiple access issues for dialysis Complicates care, management, recovery and prognosis. Patient will likely require visualization of the stomach as she is at high risk of complications of PE without anticoagulation. CT scan can be completed as an outpatient. No indication for evaluation of lung mass as an inpatient. Inpatient E&M: 68974 Subs Hosp L2
--- NOTE | 2020-06-14 09:31 | PN_ITS ---
Patient Problems: Active and Suspected Problems (Last Reviewed 01/09/20 @ 09:17 by Alisha Her) GI bleed (Acute) ESRD (end stage renal disease) on dialysis (Acute) Hypotension (Acute) Severe anemia (Acute) Problem with dialysis access (Acute) Reason for Visit: GI bleed. Subjective: Feels well. On oxygen at home at 3l/m. Vitals/I&O's: Vital Signs Temp Pulse Resp BP Pulse Ox 36.6 C 86 17 108/57 L 94 06/14/20 06:04 06/14/20 07:31 06/14/20 06:04 06/14/20 06:04 06/14/20 06:04 Oxygen Flow Rate (L/min) 8 Oxygen Delivery Method Nasal Cannula Weight: 60.1 kg Body Mass Index (BMI) 22.3 Intake and Output for Last 24 Hours 06/12/20 06/13/20 06/14/20 23:59 23:59 23:59 Intake Total 1050.34 / 1050.34 2787.06 / 2887.06 391.33 / 391.33 Output Total 725 / 725 Balance 1050.34 / 975.34 2062.06 / 2162.06 391.33 / 391.33 General: Alert, No apparent distress HEENT: Atraumatic, Normocephalic Oral: Moist Mucosa, No Gingival or Mucosal Lesions/ Ulcerations Neck: No Nodes, Thyroid Normal Size and Texture Lungs: Normal air movement, Wheezes Cardiovascular: Regular rate, Regular Rhythm, Normal S1, Normal S2, No murmurs Abdomen: Bowel Sounds Present, Soft, Non Tender, Non-Distended, No Hepato- splenomegaly Psych/Mental Status: Normal Affect, Appropriate Laboratory Results 06/13/20 11:40: APTT 101.8 H* 06/13/20 12:13: Specimen Type ART, Sample Site L Radial, pH 7.40, Bicarbonate Actual 18.2 L, Total CO2 19, Base Excess -7 L, O2 Saturation 89 L, O2 % 44, ABG pCO2 29.3 L, ABG pO2 55 L 06/13/20 19:45: APTT 40.0 H 06/14/20 02:57: WBC 14.0 H, RBC 3.60 L, Hgb 10.4 L, Hct 32.6 L, MCV 90.6, MCH 28.9, MCHC 31.9 L, RDW Std Deviation 54.8 H, RDW Coeff of Mamta 17.3 H, Plt Count 234, MPV 10.3, Immature Gran % (Auto) 0.900, Neut % (Auto) 83.7 H, Lymph % (Auto) 6.1 L, [place] % (Auto) 8.3, Eos % (Auto) 0.6, Baso % (Auto) 0.4, Absolute Neuts (auto) 11.8 H, Absolute Lymphs (auto) 0.86, Nucleated RBC % 0.2 06/14/20 02:57: Sodium 134 L, Potassium 4.4, Chloride 102, Carbon Dioxide 21.0, Anion Gap 11, BUN 60 H, Creatinine 6.24 H, Estim Creat Clear Calc 6.89, Est GFR (MDRD) Af Amer 9 L, Est GFR (MDRD) Non-Af 7 L, BUN/Creatinine Ratio 9.6 L, Glucose 284 H, Calcium 7.4 L 06/14/20 02:57: APTT 140.5 H* Current Medications Albuterol/Ipratropium (Ipratropium/Albuterol Sulfate 3 Ml Ampul.Neb) 3 ml INHALATION Q4H.RT [facility] Last Admin: 06/14/20 07:17 Dose: 3 ml Documented by: Heparin Sodium (Porcine) (Heparin Injection (Vial) 5,000 Unit/Ml Vial) 0 unit IV UD PRN; Protocol PRN Reason: dose adjustment Last Admin: 06/13/20 20:39 Dose: 3,000 unit Documented by: Levofloxacin (Levaquin Iv) 500 mg in 100 mls @ 100 mls/hr IV Q48H [facility] Last Infusion: 06/13/20 21:47 Dose: Infused Documented by: Sodium Chloride () 250 mls @ 15 mls/hr IV .[id number] PRN PRN Reason: Saline Flush Sodium Chloride () 250 mls @ 15 mls/hr IV .[id number] PRN PRN Reason: Additional IVPB Infusion Heparin Sodium/Dextrose () 25,000 units in 250 mls @ 8 mls/hr IV .[id number] [facility]; Protocol Last Admin: 06/14/20 06:06 Dose: 400 units/hr, 4 mls/hr Documented by: Pantoprazole Sodium (Pantoprazole Sodium 40 Mg Tablet) 40 mg PO BID [facility] Last Admin: 06/13/20 20:45 Dose: 40 mg Documented by: Prochlorperazine Edisylate (Prochlorperazine 10 Mg/2 Ml Vial) 5 mg IV Q6H PRN PRN PRN Reason: NAUSEA/VOMITING Last Admin: 06/14/20 03:21 Dose: 5 mg Documented by: Sodium Chloride (0.9% Saline Lock 10 Ml Syringe) 10 - 40 ml IV UD PRN PRN Reason: SALINE FLUSH Last Admin: 06/14/20 03:21 Dose: 10 ml Documented by: STROKE Vital Signs/Narrative: Vital Signs Temp Pulse Resp BP Pulse Ox 06/14/20 07:31 86 06/14/20 06:04 36.6 C 80 17 108/57 L 94 Medical Necessity - Tobacco Use Smoking Status: Current every day smoker Tobacco Use: Non-smoker Assessment/Plan All Active Problems (Last Reviewed 01/09/20 @ 09:17 by Alisha Her) GI bleed (Acute) ESRD (end stage renal disease) on dialysis (Acute) Hypotension (Acute) Severe anemia (Acute) Problem with dialysis access (Acute) 1. Acute GI bleed * currently resolved * on pantoprazole gtt, changed to PO * ASA and apixaban held * EGD unremarkable * outpt c-scope 2. Acute blood loss anemia * stable * 2/2 above * transfused 4 units PRBCs * no more blood needed at this time * monitor 3. 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 Berry * still with residual thrombus 4. ESRD * on HD * nephrology following 5. Hemorrhagic shock * 2/2 ABLA * resolved 6. hyperkalemia * resolved 7. H/O PE * dc heparin gtt as no bleeding after 24h * resume apixaban 8. VTE prophylaxis: anticoagulated 9. Acute on chronic respiratory failure * currently on 6liters, uses 3 liters at home. * likely a component is volume overload from 4 units * pt to have HD on 06/15, hopefully that will help 10. Disposition: * hopefully home 06/15 if decreased oxygen requirements and hg is stable. Inpatient E&M: [id number] Subs Hosp L2
[2020-06-14] MEDS: Pantoprazole Sodium 40 MG Tablet PO ×2 (10:04→22:31)
[2020-06-14] MEDS: Carvedilol 12.5 MG Tablet PO ×2 (10:04→22:31)
[2020-06-14] MEDS: SEVELAMER CARBONATE 800 MG TABLET PO ×2 (11:49→16:17)
[2020-06-14] MEDS: APIXABAN 2.5 MG TABLET PO ×2 (11:49→22:31)
[2020-06-14] MEDS: Insulin Lispro 100 UNIT/ML INSULN.PEN SC ×3 (11:55→23:35)
[2020-06-14 12:05] LABS: Bedside Glucose 358 mg/dL (70-110)
[2020-06-14 16:26] LABS: Bedside Glucose 303 mg/dL (70-110)
[2020-06-14 22:45] LABS: Bedside Glucose 239 mg/dL (70-110)
[2020-06-15] VITALS (17 sets, daily range): BP systolic 101–119; BP diastolic 54–69; PULSE 74–92; RESP 14–28; TEMP 36.2–37.6; O2SAT 89–96
[2020-06-15] MEDS: Ipratropium/Albuterol Sulfate 3 ML AMPUL.NEB INHALATION ×5 (03:17→19:49)
[2020-06-15 05:27] LABS: Absolute Lymphocyte Count 0.73 X10^3/uL (0.83-4.51); Absolute Neutrophil Count 11.8 X10^3/uL (2.0-7.7); Basophil# 0.04 X10^3/uL; Basophil% 0.3 % (0-1); Eosinophil# 0.26 X10^3/uL; Eosinophils% 1.9 % (0-5); Hematocrit 33.7 % (37-47); Hemoglobin 10.9 g/dL (12.0-15.0); Lymphocyte # 0.73 X10^3/ul (4.0); Lymphocyte % 5.2 % (19-41); Mean Corp Hgb Conc 32.3 g/dL (32-36); Mean Corpuscular Hgb 29.3 pg (27.0-32.0); Mean Corpuscular Volume 90.6 fL (81-99); Mean Platelet Vol. 10.4 fl (6.2-12.0); Monocyte# 0.95 X10^3/uL; Monocyte% 6.8 % (0-10); NRBC Flagged by Analyzer 0 % (0-5); Neutrophil # 11.83 X10^3/uL (2.7-7.7); Neutrophil % 84.7 % (47-70); Platelet Count 241 K/mm3 (150-450); RBC Distribution Width CV 17.3 % (11.6-14.6); RBC Distribution Width SD 56.1 fl (35.1-43.9); Red Blood Count 3.72 M/mm3 (4.2-5.4)
[2020-06-15 05:39] LABS: Anion Gap 13 (5-15); BUN 83 mg/dL (7-18); BUN/Creat Ratio 11.3 RATIO (10-20); Calcium,Total 7.5 mg/dL (8.5-10.1); Chloride 100 mmol/L (98-107); Creatinine, Serum 7.37 mg/dL (0.55-1.02); EST Glomerular Filtration Rate 6 mL/min (>60); Est Glom Filt Rate - Afr Amer 7 mL/min (>60); Estimated Creatinine Clearance 5.83 ml/min; Glucose 234 mg/dL (74-106); Potassium 5.1 mmol/L (3.5-5.1); Sodium Level 133 mmol/L (136-145)
--- NOTE | 2020-06-15 05:54 | PCM.PN.SRG ---
Patient Problems: Active and Suspected Problems (Last Reviewed 01/09/20 @ 09:17 by Alisha Her) GI bleed (Acute) ESRD (end stage renal disease) on dialysis (Acute) Hypotension (Acute) Severe anemia (Acute) Problem with dialysis access (Acute) Subjective: Patient's denied any particular concerns this morning. She states that she has no abdominal pain and is not aware that she has passed any additional blood per rectum. She is denying any right upper extremity discomfort. Last dialysis was June 12, 2020 - Physical Exam Vitals/I&O's: Vital Signs Temp Pulse Resp BP Pulse Ox 97.6 F L 82 20 H 113/54 L 94 06/15/20 04:36 06/15/20 04:36 06/15/20 04:36 06/15/20 04:36 06/15/20 04:41 Oxygen Flow Rate (L/min) 12 Oxygen Delivery Method Venturi Mask Weight: 132 lb 7.965 oz Body Mass Index (BMI) 22.3 Intake and Output for Last 24 Hours 06/13/20 06/14/20 06/15/20 23:59 23:59 23:59 Intake Total 2787.06 / 2887.06 1366.53 / 1366.53 Output Total 725 / 725 Balance 2062.06 / 2162.06 1366.53 / 1366.53 Musculoskeletal: - - Right upper extremity has dressings in place. There is a pulse and light thrill. Bruit suggests diminished diastolic flow suggesting outflow obstruction. 2+ right radial pulse Laboratory Results 06/14/20 11:46: POC Glucose 358 H 06/14/20 16:15: POC Glucose 303 H 06/14/20 22:35: POC Glucose 239 H 06/15/20 05:18: WBC 14.0 H, RBC 3.72 L, Hgb 10.9 L, Hct 33.7 L, MCV 90.6, MCH 29.3, MCHC 32.3, RDW Std Deviation 56.1 H, RDW Coeff of Mamta 17.3 H, Plt Count 241, MPV 10.4, Immature Gran % (Auto) 1.100 H, Neut % (Auto) 84.7 H, Lymph % (Auto) 5.2 L, [place] % (Auto) 6.8, Eos % (Auto) 1.9, Baso % (Auto) 0.3, Absolute Neuts (auto) 11.8 H, Absolute Lymphs (auto) 0.73 L, Nucleated RBC % 0 06/15/20 05:18: Sodium 133 L, Potassium 5.1, Chloride 100, Carbon Dioxide 20.0 L, Anion Gap 13, BUN 83 H, Creatinine 7.37 H, Estim Creat Clear Calc 5.83, Est GFR (MDRD) Af Amer 7 L, Est GFR (MDRD) Non-Af 6 L, BUN/Creatinine Ratio 11.3, Glucose 234 H, Calcium 7.5 L Current Medications Albuterol/Ipratropium (Ipratropium/Albuterol Sulfate 3 Ml Ampul.Neb) 3 ml INHALATION Q4H.RT [facility] Last Admin: 06/15/20 03:17 Dose: 3 ml Documented by: Apixaban (Apixaban 2.5 Mg Tablet) 2.5 mg PO BID [facility] Last Admin: 06/14/20 22:31 Dose: 2.5 mg Documented by: Carvedilol (Carvedilol 12.5 Mg Tablet) 12.5 mg PO BID [facility] Last Admin: 06/14/20 22:31 Dose: 12.5 mg Documented by: Dextrose (Dextrose 50%-Water 25 Gm/50 Ml Disp.Syrin) 0 gm IV X1 PRN; Protocol PRN Reason: Hypoglycemia Glucagon (Glucagon 1 Mg/Ml Syringe) 1 mg IM .X1 PRN PRN Reason: Hypoglycemia Sodium Chloride () 250 mls @ 15 mls/hr IV .[id number] PRN PRN Reason: Saline Flush Sodium Chloride () 250 mls @ 15 mls/hr IV .[id number] PRN PRN Reason: Additional IVPB Infusion Insulin Human Lispro (Insulin Lispro 100 Unit/Ml Insuln.Pen) 0 unit SC ACHS [facility]; Protocol Last Admin: 06/14/20 23:35 Dose: 3 units Documented by: Multivit/Ca Carb/B Cmplx/FA/Prenat (Folic Acid/Vitamin B Comp W-C 1 Capsule) 1 capsule PO DAILYCM [facility] Pantoprazole Sodium (Pantoprazole Sodium 40 Mg Tablet) 40 mg PO BID [facility] Last Admin: 06/14/20 22:31 Dose: 40 mg Documented by: Prochlorperazine Edisylate (Prochlorperazine 10 Mg/2 Ml Vial) 5 mg IV Q6H PRN PRN PRN Reason: NAUSEA/VOMITING Last Admin: 06/14/20 18:48 Dose: 5 mg Documented by: Sevelamer Carbonate (Sevelamer Carbonate 800 Mg Tablet) 800 mg PO TIDCM [facility] Last Admin: 06/14/20 16:17 Dose: 800 mg Documented by: Sodium Chloride (0.9% Saline Lock 10 Ml Syringe) 10 - 40 ml IV UD PRN PRN Reason: SALINE FLUSH Last Admin: 06/14/20 18:48 Dose: 10 ml Documented by: Medical Necessity - Tobacco Use Smoking Status: Current every day smoker Tobacco Use: Non-smoker Assessment/Plan All Active Problems (Last Reviewed 01/09/20 @ 09:17 by Alisha Her) GI bleed (Acute) ESRD (end stage renal disease) on dialysis (Acute) Hypotension (Acute) Severe anemia (Acute) Problem with dialysis access (Acute) Right upper extremity transposed basilic vein to brachial artery arteriovenous hemodialysis fistula had moderate amount of thrombus and a high-grade proximal fistula venous stenosis with recoil at the completion of the procedure and residual thrombus. She was able to be initiated on an IV heparin infusion. That has subsequently been ceased and she is now on apixaban. I propose for the patient hopefully when she is clinically slightly improved a repeat right upper extremity fistulogram likely utilizing a cutting balloon. Hopefully we can accomplish it in the near future as an outpatient. She is likely to receive dialysis today and we will await technical results of that procedure. Shiv Berry M.D., F.A.C.S.
[2020-06-15 07:00] LABS: Bedside Glucose 228 mg/dL (70-110)
[2020-06-15] MEDS: Insulin Lispro 100 UNIT/ML INSULN.PEN SC ×3 (07:09→21:18)
[2020-06-15] MEDS: Pantoprazole Sodium 40 MG Tablet PO ×2 (08:25→21:18)
[2020-06-15] MEDS: Folic Acid/Vitamin B Comp W-C 1 Capsule 1 CAP PO (08:26)
[2020-06-15] MEDS: SEVELAMER CARBONATE 800 MG TABLET PO ×2 (08:26→12:19)
[2020-06-15] MEDS: APIXABAN 2.5 MG TABLET PO ×2 (08:26→21:18)
--- NOTE | 2020-06-15 09:00 | CASEMGMT ---
PATT MOSER assessment: Face to Face with patient for initial transition planning/care coordination assessment as previous RN CM not able to speak with pt. RN CM introduced self and role at [facility], pt voices understanding and consents to assessment at this time. Pt is A/Ox4 at this time and answers all questions appropriately at this time. Pt is currently on vent mask but in no distress and speaks in full sentences. Care providers, pharmacy, and demographics verified at this time. Presentation: Pt direct admit from [facility] for severe anemia/melena stools Admitting dx: Acute severe anemia PCP: Edwin Specialists: loreto Baeza [facility]: [facility] Insurance: MCR/ROCÍO Prescription Benefit: ROCÍO Living Will/HPOA: Pt states does not have LW/HPOA and declines AD info at this time. LNOK: Richard Nick, sig other Living Arrangements: Pt states lives with sig other in 1 story home with no stairs and states no concerns at home at this time. Pt states is independent with ADL's. Transportation: Pt states drives self and states no transportation concerns at this time. DME/HHC: Pt states has home oxygen 3liters continuous at home with concentrators/portable tank(goes up to 5liters) thru [facility] and states no further DME or need for any at this time. Pt states no hx of HHC or SNF in the past. Pt states no concerns with going home at time of discharge. Pt states is on disability. Pt states smokes about 1/2 pk/day of cigarettes and does not drink ETOH. Pt states no further concerns/needs at this time. CM to follow for any further discharge planning/needs. Advised pt to ask for CM if any further questions/concerns/needs arise, voices understanding. Pt Goal: Home Plan: Home [place] PATT MOSER
--- NOTE | 2020-06-15 09:11 | CASEMGMT ---
Per Jerri, PCU charge, there is a possibility that pt could discharge today and today is her scheduled dialysis day. Call to [facility] and they state if pt can get there by 1100, then they can run her there today. This RN CM to room to discuss with pt and pt is currently on venti mask at this time. Pt states she normally wears 3liters continuous at home and has her portable tank with her which does go up to 5liters. Pt states her sig other would be able to come get her and get her to dialysis but the oxygen need may delay discharge at this time. Pt aware, voice understanding. SStaten RN CM
--- NOTE | 2020-06-15 10:33 | PN.RENAL_ITS ---
Patient Problems: Active and Suspected Problems (Last Reviewed 01/09/20 @ 09:17 by Alisha Her) GI bleed (Acute) ESRD (end stage renal disease) on dialysis (Acute) Hypotension (Acute) Severe anemia (Acute) Problem with dialysis access (Acute) Subjective: no sob no cp - Physical Exam Vitals/I&O's: Vital Signs Temp Pulse Resp BP Pulse Ox 97.2 F L 74 20 H 101/57 L 94 06/15/20 08:23 06/15/20 08:23 06/15/20 08:23 06/15/20 08:23 06/15/20 08:23 Oxygen Flow Rate (L/min) 12 Oxygen Delivery Method Venturi Mask Weight: 57.8 kg Body Mass Index (BMI) 22.3 Intake and Output for Last 24 Hours 06/13/20 06/14/20 06/15/20 23:59 23:59 23:59 Intake Total 2787.06 / 2887.06 1366.53 / 1366.53 100 / 100 Output Total 725 / 725 Balance 2062.06 / 2162.06 1366.53 / 1366.53 100 / 100 General: Alert, Cooperative HEENT: Atraumatic, Normocephalic Oral: Moist Mucosa Neck: Supple, Trachea Midline Lungs: Clear to auscultation, Normal air movement Cardiovascular: Regular rate, Regular Rhythm Abdomen: Bowel Sounds Present, Soft, Non Tender Extremities: No edema Laboratory Results 06/14/20 11:46: POC Glucose 358 H 06/14/20 16:15: POC Glucose 303 H 06/14/20 22:35: POC Glucose 239 H 06/15/20 05:18: WBC 14.0 H, RBC 3.72 L, Hgb 10.9 L, Hct 33.7 L, MCV 90.6, MCH 29.3, MCHC 32.3, RDW Std Deviation 56.1 H, RDW Coeff of Mamta 17.3 H, Plt Count 241, MPV 10.4, Immature Gran % (Auto) 1.100 H, Neut % (Auto) 84.7 H, Lymph % (Auto) 5.2 L, [place] % (Auto) 6.8, Eos % (Auto) 1.9, Baso % (Auto) 0.3, Absolute Neuts (auto) 11.8 H, Absolute Lymphs (auto) 0.73 L, Nucleated RBC % 0 06/15/20 05:18: Sodium 133 L, Potassium 5.1, Chloride 100, Carbon Dioxide 20.0 L , Anion Gap 13, BUN 83 H, Creatinine 7.37 H, Estim Creat Clear Calc 5.83, Est GFR (MDRD) Af Amer 7 L, Est GFR (MDRD) Non-Af 6 L, BUN/Creatinine Ratio 11.3, Glucose 234 H, Calcium 7.5 L 06/15/20 06:55: POC Glucose 228 H Current Medications Albuterol/Ipratropium (Ipratropium/Albuterol Sulfate 3 Ml Ampul.Neb) 3 ml INHALATION Q4H.RT [facility] Last Admin: 06/15/20 06:54 Dose: 3 ml Documented by: Apixaban (Apixaban 2.5 Mg Tablet) 2.5 mg PO BID [facility] Last Admin: 06/15/20 08:26 Dose: 2.5 mg Documented by: Carvedilol (Carvedilol 12.5 Mg Tablet) 12.5 mg PO BID [facility] Last Admin: 06/15/20 08:26 Dose: Not Given Documented by: Dextrose (Dextrose 50%-Water 25 Gm/50 Ml Disp.Syrin) 0 gm IV X1 PRN; Protocol PRN Reason: Hypoglycemia Glucagon (Glucagon 1 Mg/Ml Syringe) 1 mg IM .X1 PRN PRN Reason: Hypoglycemia Sodium Chloride () 250 mls @ 15 mls/hr IV .[id number] PRN PRN Reason: Saline Flush Sodium Chloride () 250 mls @ 15 mls/hr IV .[id number] PRN PRN Reason: Additional IVPB Infusion Insulin Human Lispro (Insulin Lispro 100 Unit/Ml Insuln.Pen) 0 unit SC ACHS [facility]; Protocol Last Admin: 06/15/20 07:09 Dose: 2 units Documented by: Multivit/Ca Carb/B Cmplx/FA/Prenat (Folic Acid/Vitamin B Comp W-C 1 Capsule) 1 capsule PO DAILYCM [facility] Last Admin: 06/15/20 08:26 Dose: 1 capsule Documented by: Pantoprazole Sodium (Pantoprazole Sodium 40 Mg Tablet) 40 mg PO BID [facility] Last Admin: 06/15/20 08:25 Dose: 40 mg Documented by: Prochlorperazine Edisylate (Prochlorperazine 10 Mg/2 Ml Vial) 5 mg IV Q6H PRN PRN PRN Reason: NAUSEA/VOMITING Last Admin: 06/14/20 18:48 Dose: 5 mg Documented by: Sevelamer Carbonate (Sevelamer Carbonate 800 Mg Tablet) 800 mg PO TIDCM [facility] Last Admin: 06/15/20 08:26 Dose: 800 mg Documented by: Sodium Chloride (0.9% Saline Lock 10 Ml Syringe) 10 - 40 ml IV UD PRN PRN Reason: SALINE FLUSH Last Admin: 06/14/20 18:48 Dose: 10 ml Documented by: Medical Necessity - Tobacco Use Smoking Status: Current every day smoker Tobacco Use: Non-smoker Assessment/Plan All Active Problems (Last Reviewed 01/09/20 @ 09:17 by Alisha Her) GI bleed (Acute) ESRD (end stage renal disease) on dialysis (Acute) Hypotension (Acute) Severe anemia (Acute) Problem with dialysis access (Acute) 1- ESRD : On MWF for dialysis later on today 2- clotted RUE AVF s/p declotting per vascular Anemia Epogen with dialysis GI bleed. s/p 4 RBC transfusion s/p EGD no source of bleeding
[2020-06-15 12:25] LABS: Bedside Glucose 362 mg/dL (70-110)
--- NOTE | 2020-06-15 13:16 | PCM.PN.HOSP ---
Patient Problems: Active and Suspected Problems (Last Reviewed 01/09/20 @ 09:17 by Alisha Her) GI bleed (Acute) ESRD (end stage renal disease) on dialysis (Acute) Hypotension (Acute) Severe anemia (Acute) Problem with dialysis access (Acute) Reason for Visit: Acute GI bleed Acute hypoxia Subjective: Patient is a 60-year-old lady with history of end-stage renal disease on hemodialysis admitted with melenic stools, severe anemia and hypotension patient had recently been admitted with pulmonary embolism and discharged on Eliquis Objective: GENERAL: cooperative but dyspneic at rest HEENT: Atraumatic; EYES; Anicteric, Normal Conjunctiva NECK; supple, normal thyroid, RESPIRATORY: Diminished to auscultation CARDIOVASCULAR: Regular S1 S2, GI: soft, normoactive bowel sounds, : No Renal angle tenderness; EXTREMITIES: No edema, no clubbing, MUSCULOSKELETAL: no muscle waisting NEURO: Awake; no lateralizing signs. SKIN: No Rash PSYCH; Flat affect Vitals/I&O's: Vital Signs Temp Pulse Resp BP Pulse Ox 97.2 F L 77 28 H 101/57 L 94 06/15/20 08:23 06/15/20 11:13 06/15/20 11:13 06/15/20 08:23 06/15/20 08:23 Oxygen Flow Rate (L/min) 12 Oxygen Delivery Method Venturi Mask Weight: 57.8 kg Body Mass Index (BMI) 22.3 Intake and Output for Last 24 Hours 06/13/20 06/14/20 06/15/20 23:59 23:59 23:59 Intake Total 2787.06 / 2887.06 1366.53 / 1366.53 340 / 340 Output Total 725 / 725 Balance 2062.06 / 2162.06 1366.53 / 1366.53 340 / 340 Laboratory Results 06/14/20 16:15: POC Glucose 303 H 06/14/20 22:35: POC Glucose 239 H 06/15/20 05:18: WBC 14.0 H, RBC 3.72 L, Hgb 10.9 L, Hct 33.7 L, MCV 90.6, MCH 29.3, MCHC 32.3, RDW Std Deviation 56.1 H, RDW Coeff of Mamta 17.3 H, Plt Count 241, MPV 10.4, Immature Gran % (Auto) 1.100 H, Neut % (Auto) 84.7 H, Lymph % (Auto) 5.2 L, [place] % (Auto) 6.8, Eos % (Auto) 1.9, Baso % (Auto) 0.3, Absolute Neuts (auto) 11.8 H, Absolute Lymphs (auto) 0.73 L, Nucleated RBC % 0 06/15/20 05:18: Sodium 133 L, Potassium 5.1, Chloride 100, Carbon Dioxide 20.0 L, Anion Gap 13, BUN 83 H, Creatinine 7.37 H, Estim Creat Clear Calc 5.83, Est GFR (MDRD) Af Amer 7 L, Est GFR (MDRD) Non-Af 6 L, BUN/Creatinine Ratio 11.3, Glucose 234 H, Calcium 7.5 L 06/15/20 06:55: POC Glucose 228 H 06/15/20 12:15: POC Glucose 362 H Current Medications Albuterol/Ipratropium (Ipratropium/Albuterol Sulfate 3 Ml Ampul.Neb) 3 ml INHALATION Q4H.RT [facility] Last Admin: 06/15/20 11:12 Dose: 3 ml Documented by: Apixaban (Apixaban 2.5 Mg Tablet) 2.5 mg PO BID [facility] Last Admin: 06/15/20 08:26 Dose: 2.5 mg Documented by: Carvedilol (Carvedilol 12.5 Mg Tablet) 12.5 mg PO BID [facility] Last Admin: 06/15/20 08:26 Dose: Not Given Documented by: Dextrose (Dextrose 50%-Water 25 Gm/50 Ml Disp.Syrin) 0 gm IV X1 PRN; Protocol PRN Reason: Hypoglycemia Glucagon (Glucagon 1 Mg/Ml Syringe) 1 mg IM .X1 PRN PRN Reason: Hypoglycemia Sodium Chloride () 250 mls @ 15 mls/hr IV .[id number] PRN PRN Reason: Saline Flush Sodium Chloride () 250 mls @ 15 mls/hr IV .[id number] PRN PRN Reason: Additional IVPB Infusion Insulin Human Lispro (Insulin Lispro 100 Unit/Ml Insuln.Pen) 0 unit SC ACHS [facility]; Protocol Last Admin: 06/15/20 12:19 Dose: 6 units Documented by: Multivit/Ca Carb/B Cmplx/FA/Prenat (Folic Acid/Vitamin B Comp W-C 1 Capsule) 1 capsule PO DAILYCM [facility] Last Admin: 06/15/20 08:26 Dose: 1 capsule Documented by: Pantoprazole Sodium (Pantoprazole Sodium 40 Mg Tablet) 40 mg PO BID [facility] Last Admin: 06/15/20 08:25 Dose: 40 mg Documented by: Prochlorperazine Edisylate (Prochlorperazine 10 Mg/2 Ml Vial) 5 mg IV Q6H PRN PRN PRN Reason: NAUSEA/VOMITING Last Admin: 06/14/20 18:48 Dose: 5 mg Documented by: Sevelamer Carbonate (Sevelamer Carbonate 800 Mg Tablet) 800 mg PO TIDCM [facility] Last Admin: 06/15/20 12:19 Dose: 800 mg Documented by: Sodium Chloride (0.9% Saline Lock 10 Ml Syringe) 10 - 40 ml IV UD PRN PRN Reason: SALINE FLUSH Last Admin: 06/14/20 18:48 Dose: 10 ml Documented by: STROKE Vital Signs/Narrative: Vital Signs Pulse Resp 06/15/20 11:13 77 28 H Medical Necessity - Tobacco Use Smoking Status: Current every day smoker Tobacco Use: Non-smoker Assessment/Plan All Active Problems (Last Reviewed 01/09/20 @ 09:17 by Alisha Her) GI bleed (Acute) ESRD (end stage renal disease) on dialysis (Acute) Hypotension (Acute) Severe anemia (Acute) Problem with dialysis access (Acute) Patient is a 60-year-old lady with history of end-stage renal disease on hemodialysis admitted with melenic stools, severe anemia and hypotension patient had recently been admitted with pulmonary embolism and discharged on Eliquis 1. Hemorrhagic shock ?Secondary to significant GI bleed patient was transfused with a total of 4 unit PRBC 2. Anemia secondary to acute blood loss anemia from GI bleed ?Patient was transfused a total of 4 unit PRBC 3. Acute GI bleed suspected to be secondary to upper GI bleed (gastritis versus peptic ulcer disease -Patient was managed with Protonix drip, resolved Eliquis restarted 4. Acute hypoxic respiratory failure ?Chest x-ray obtained demonstrated Progressive pleural parenchymal changes at the left lung base as well as increased markings in the right infrahilar region. Stable infiltrate in the peripheral aspect of the left mid lung. Patient continues to experience hypoxia. Placed on Ventimask titrated to keep saturation greater than 90. CT of the chest without contrast ordered for subsequent evaluation 5. End-stage renal disease ?Patient is on hemodialysis Wednesdays and Fridays. Consult placed to nephrology for dialysis orders 6. Clotted AV fistula ?Underwent declotting by Dr. Berry on 1119 7. Pulmonary embolism ?Patient was placed on heparin discontinued Eliquis restarted 8. Anemia ?Secondary to end-stage renal disease resolved 8. Essential hypertension ?Patient antihypertensives currently on hold Inpatient E&M: [id number] [facility] L[facility]
--- NOTE | 2020-06-15 13:31 | CT_ITS ---
STUDY: CT CHEST WITHOUT CONTRAST REASON FOR EXAM: Female, 60 years old. SEVERE ANEMIA, GI BLEED, HYPOTENSION, HYPOXIA, RECENT PE RADIATION DOSAGE (If Supplied By Facility): CTDIvol = ( 9.31 ) mGy, DLP = ( 320.99 ) mGycm TECHNIQUE: Transaxial imaging was performed without the administration of intravenous contrast material. Multiplanar coronal and sagittal images were reformatted. Individualized dose optimization techniques were used for this CT. COMPARISON: None. FINDINGS: A large bore catheter is seen in the superior vena cava entering from the left side. There is evidence of a 2.4 cm x 2.3 cm x 2.9 cm mass in the peripheral aspect of the left upper lobe. Small left pleural effusion with fluid in the left major fissure. Small right pleural effusion. There is evidence of infiltration at the lung bases worse on the left side as well as patchy infiltrate in the right upper lobe. There are calcifications of the coronary arteries. Mildly enlarged mediastinal lymph nodes. Normal hilar regions. Normal unenhanced pulmonary arteries. There is atherosclerotic calcification of the aortic arch with tortuosity and elongation of the aortic arch and descending thoracic aorta. There are multi-level degenerative changes of the thoracic spine. There is no demonstrated abnormality of the visualized upper abdomen. CT/Chest without Contrast IMPRESSION: 2.4 cm x 2.3 cm x 2.9 cm mass in the peripheral lateral aspect of the left upper lobe. Small bilateral effusions left greater than right with bibasilar infiltrates or prominent on the left side. There is also evidence of focal infiltrate in the right middle lobe. Electronically Signed: Kleber Oates, at 14:47 EST , Service support ,
[2020-06-15 16:21] LABS: Bedside Glucose 173 mg/dL (70-110)
--- NOTE | 2020-06-15 18:08 | DIALYSIS ---
Pt completed hemodialysis treatment via right arm AV fistula with 3 liters fluid removed. Pt tolerated treatment without difficulty.
[2020-06-15] MEDS: Epoetin Alfa epbx 10,000 UNITS/ML 4000 UNIT IV (18:44)
[2020-06-15] MEDS: levoFLOXacin IV 750 MG/150 ML BAG 100 MG IV (18:44)
[2020-06-15] MEDS: 0.9% Saline Lock 10 ML Syringe IV (18:48)
[2020-06-15] MEDS: Carvedilol 12.5 MG Tablet PO (21:18)
[2020-06-15 21:50] LABS: Bedside Glucose 241 mg/dL (70-110)
[2020-06-16] VITALS (12 sets, daily range): BP systolic 94–129; BP diastolic 52–59; PULSE 73–79; RESP 16–22; TEMP 36.7–37.2; O2SAT 90–95
[2020-06-16] MEDS: Acetaminophen 325 MG Tablet 650 MG PO (00:25)
[2020-06-16] MEDS: Ipratropium/Albuterol Sulfate 3 ML AMPUL.NEB INHALATION ×4 (03:50→14:04)
[2020-06-16] MEDS: Insulin Lispro 100 UNIT/ML INSULN.PEN SC ×2 (06:47→11:21)
[2020-06-16 07:00] LABS: Bedside Glucose 221 mg/dL (70-110)
[2020-06-16 07:10] LABS: Hematocrit 31.8 % (37-47); Hemoglobin 10.2 g/dL (12.0-15.0); Mean Corp Hgb Conc 32.1 g/dL (32-36); Mean Corpuscular Hgb 28.9 pg (27.0-32.0); Mean Corpuscular Volume 90.1 fL (81-99); Mean Platelet Vol. 11.1 fl (6.2-12.0); Platelet Count 232 K/mm3 (150-450); RBC Distribution Width CV 17.1 % (11.6-14.6); RBC Distribution Width SD 54.8 fl (35.1-43.9); Red Blood Count 3.53 M/mm3 (4.2-5.4); White Blood Count 10.7 K/mm3 (4.4-11.0)
[2020-06-16 07:32] LABS: Anion Gap 13 (5-15); BUN 54 mg/dL (7-18); BUN/Creat Ratio 9.2 RATIO (10-20); Calcium,Total 7.5 mg/dL (8.5-10.1); Chloride 100 mmol/L (98-107); EST Glomerular Filtration Rate 8 mL/min (>60); Est Glom Filt Rate - Afr Amer 9 mL/min (>60); Estimated Creatinine Clearance 7.28 ml/min; Glucose 196 mg/dL (74-106); Magnesium 2.1 mg/dL (1.6-2.6); Potassium 4.3 mmol/L (3.5-5.1); Sodium Level 137 mmol/L (136-145)
[2020-06-16] MEDS: APIXABAN 2.5 MG TABLET PO (09:18)
[2020-06-16] MEDS: Folic Acid/Vitamin B Comp W-C 1 Capsule 1 CAP PO (09:18)
[2020-06-16] MEDS: Pantoprazole Sodium 40 MG Tablet PO (09:18)
[2020-06-16] MEDS: SEVELAMER CARBONATE 800 MG TABLET PO ×2 (09:18→11:21)
[2020-06-16] MEDS: 0.9% Saline Lock 10 ML Syringe IV (09:19)
--- NOTE | 2020-06-16 09:58 | PCM.PN.REN ---
Patient Problems: Active and Suspected Problems (Last Reviewed 01/09/20 @ 09:17 by Alisha Her) GI bleed (Acute) ESRD (end stage renal disease) on dialysis (Acute) Hypotension (Acute) Severe anemia (Acute) Problem with dialysis access (Acute) Subjective: no sob/cp no c/o - Physical Exam Vitals/I&O's: Vital Signs Temp Pulse Resp BP Pulse Ox 98.3 F 76 18 98/52 L 95 06/16/20 09:15 06/16/20 09:15 06/16/20 09:15 06/16/20 09:15 06/16/20 09:15 Oxygen Flow Rate (L/min) 6 Oxygen Delivery Method Nasal Cannula Weight: 55.2 kg Body Mass Index (BMI) 22.3 Intake and Output for Last 24 Hours 06/14/20 06/15/20 06/16/20 23:59 23:59 23:59 Intake Total 1366.53 / 1366.53 490 / 590 200 / 200 Output Total 3000 / 3000 Balance 1366.53 / 1366.53 -2510 / -2410 200 / 200 General: Alert, Cooperative HEENT: Atraumatic, Normocephalic Oral: Moist Mucosa Neck: Supple, Trachea Midline Cardiovascular: Regular rate, Regular Rhythm Abdomen: Bowel Sounds Present, Soft Laboratory Results 06/15/20 12:15: POC Glucose 362 H 06/15/20 16:11: POC Glucose 173 H 06/15/20 21:12: POC Glucose 241 H 06/16/20 05:20: WBC 10.7, RBC 3.53 L, Hgb 10.2 L, Hct 31.8 L, MCV 90.1, MCH 28.9, MCHC 32.1, RDW Std Deviation 54.8 H, RDW Coeff of Mamta 17.1 H, Plt Count 232, MPV 11.1 06/16/20 05:20: Sodium 137, Potassium 4.3, Chloride 100, Carbon Dioxide 24.0, Anion Gap 13, BUN 54 H, Creatinine 5.90 H, Estim Creat Clear Calc 7.28, Est GFR (MDRD) Af Amer 9 L, Est GFR (MDRD) Non-Af 8 L, BUN/Creatinine Ratio 9.2 L, Glucose 196 H, Calcium 7.5 L, Magnesium 2.1 06/16/20 06:45: POC Glucose 221 H Current Medications Acetaminophen (Acetaminophen 325 Mg Tablet) 650 mg PO Q6H PRN PRN PRN Reason: Pain 1-10 or Fever Last Admin: 06/16/20 00:25 Dose: 650 mg Documented by: Albuterol/Ipratropium (Ipratropium/Albuterol Sulfate 3 Ml Ampul.Neb) 3 ml INHALATION Q4H.RT [facility] Last Admin: 06/16/20 06:55 Dose: 3 ml Documented by: Apixaban (Apixaban 2.5 Mg Tablet) 2.5 mg PO BID [facility] Last Admin: 06/16/20 09:18 Dose: 2.5 mg Documented by: Carvedilol (Carvedilol 12.5 Mg Tablet) 12.5 mg PO BID [facility] Last Admin: 06/16/20 09:36 Dose: Not Given Documented by: Dextrose (Dextrose 50%-Water 25 Gm/50 Ml Disp.Syrin) 0 gm IV X1 PRN; Protocol PRN Reason: Hypoglycemia Glucagon (Glucagon 1 Mg/Ml Syringe) 1 mg IM .X1 PRN PRN Reason: Hypoglycemia Sodium Chloride () 250 mls @ 15 mls/hr IV .[id number] PRN PRN Reason: Saline Flush Sodium Chloride () 250 mls @ 15 mls/hr IV .[id number] PRN PRN Reason: Additional IVPB Infusion Levofloxacin (Levaquin Iv) 500 mg in 100 mls @ 100 mls/hr IV Q48H [facility] Insulin Human Lispro (Insulin Lispro 100 Unit/Ml Insuln.Pen) 0 unit SC ACHS [facility]; Protocol Last Admin: 06/16/20 06:47 Dose: 2 units Documented by: Multivit/Ca Carb/B Cmplx/FA/Prenat (Folic Acid/Vitamin B Comp W-C 1 Capsule) 1 capsule PO DAILYCM [facility] Last Admin: 06/16/20 09:18 Dose: 1 capsule Documented by: Pantoprazole Sodium (Pantoprazole Sodium 40 Mg Tablet) 40 mg PO BID [facility] Last Admin: 06/16/20 09:18 Dose: 40 mg Documented by: Prochlorperazine Edisylate (Prochlorperazine 10 Mg/2 Ml Vial) 5 mg IV Q6H PRN PRN PRN Reason: NAUSEA/VOMITING Last Admin: 06/14/20 18:48 Dose: 5 mg Documented by: Sevelamer Carbonate (Sevelamer Carbonate 800 Mg Tablet) 800 mg PO TIDCM [facility] Last Admin: 06/16/20 09:18 Dose: 800 mg Documented by: Sodium Chloride (0.9% Saline Lock 10 Ml Syringe) 10 - 40 ml IV UD PRN PRN Reason: SALINE FLUSH Last Admin: 06/16/20 09:19 Dose: 10 ml Documented by: Medical Necessity - Tobacco Use Smoking Status: Current every day smoker Tobacco Use: Non-smoker Assessment/Plan All Active Problems (Last Reviewed 01/09/20 @ 09:17 by Alisha Her) GI bleed (Acute) ESRD (end stage renal disease) on dialysis (Acute) Hypotension (Acute) Severe anemia (Acute) Problem with dialysis access (Acute) 1- ESRD : On MWF for dialysis tomorrow 2- clotted RUE AVF s/p declotting per vascular Anemia Epogen with dialysis GI bleed. s/p 4 RBC transfusion s/p EGD no source of bleeding
--- NOTE | 2020-06-16 11:00 | DCINST_ITS ---
- Discharge Diagnoses Current Active Problems: Current Active and Chronic Problems (Last Reviewed 01/09/20 @ 09:17 by Alisha Her) GI bleed (Acute) ESRD (end stage renal disease) on dialysis (Acute) Hypotension (Acute) Severe anemia (Acute) Problem with dialysis access (Acute) You will use the following diet at home:: Renal (restricted protein/sodium) Allergies/Adverse Reactions: Allergies Penicillins Adverse Reaction (Verified 01/09/20 09:17) Nausea/Vom/Diarrhea Medications to take at Discharge Carvedilol [Coreg (Beta Hal)] 12.5 mg PO BID 05/16/17 apixaban 2.5 mg tablet 2.5 mg PO BID 06/13/19 atorvastatin 10 mg tablet 10 mg PO DAILY 06/13/19 omeprazole 20 mg capsule,delayed release 20 mg PO DAILY 06/13/19 sevelamer carbonate 800 mg tablet 800 mg PO TIDCM tab 06/13/19 Folic Acid/Vit B Complex and C [Renal-Martin Tablet] 0.8 mg PO DAILY 08/07/19 Insulin Aspart [Novolog Flexpen] 8 units SQ DINNER 06/11/20 Insulin Aspart [Novolog Flexpen] 15 units SQ BREAKFAST 06/11/20 Levofloxacin [Levaquin] 500 mg PO QODAY #4 tab 06/16/20 The following prescriptions were given: Levofloxacin [Levaquin] 500 mg PO QODAY #4 tab Transmission Status: Pending to [id number] Primary Care Physician: Ginna Pineda MD [Primary Care Provider] - Please follow up with your Primary Care Physician in: In 1 to 2 weeks Test Results: Test results from this visit will be discussed in further detail at your follow- up appointment, if applicable. Proposed Discharge Date: 06/16/20
--- NOTE | 2020-06-16 11:02 | DS.PCM_ITS ---
Discharge Date and Diagnosis - Problem List Patient Problems: Active and Suspected Problems (Last Reviewed 01/09/20 @ 09:17 by Alisha Her) GI bleed (Acute) ESRD (end stage renal disease) on dialysis (Acute) Hypotension (Acute) Severe anemia (Acute) Problem with dialysis access (Acute) Date of Admission: 06/11/20 Date of Discharge: 06/16/20 - Primary Discharge Diagnosis Acute Problems: Active Problems (Last Reviewed 01/09/20 @ 09:17 by Alisha Her) GI bleed (Acute) ESRD (end stage renal disease) on dialysis (Acute) Hypotension (Acute) Severe anemia (Acute) Problem with dialysis access (Acute) Hospital Course and Treatment Imaging Results: Clinical Impression(s) from Imaging Studies Chest X-Ray 06/11/20 16:55 IMPRESSION: Poorly defined pulmonary opacity of the mid left lung and atelectasis or infiltrate in the left lung base with small effusion. Pneumonic infiltrates are possible. Electronically Signed: Sukhdeep Corbin MD at 18:52 EST , Service support , Chest X-Ray 06/12/20 09:25 IMPRESSION: Progressive pleural parenchymal changes at the left lung base as well as increased markings in the right infrahilar region. Stable infiltrate in the peripheral aspect of the left mid lung. Electronically Signed: Kleber Oates, at 10:48 EST , Service support , Chest CT 06/15/20 13:31 IMPRESSION: 2.4 cm x 2.3 cm x 2.9 cm mass in the peripheral lateral aspect of the left upper lobe. Small bilateral effusions left greater than right with bibasilar infiltrates or prominent on the left side. There is also evidence of focal infiltrate in the right middle lobe. Electronically Signed: Kleber Oates, at 14:47 EST , Service support , Summary of Care Provided: Patient is a 60-year-old lady with history of end-stage renal disease on hemodialysis admitted with melenic stools, severe anemia and hypotension patient had recently been admitted with pulmonary embolism and discharged on Eliquis 1. Hemorrhagic shock ?Secondary to significant GI bleed patient was transfused with a total of 4 unit PRBC 2. Anemia secondary to acute blood loss anemia from GI bleed ?Patient was transfused a total of 4 unit PRBC 3. Acute GI bleed suspected to be secondary to upper GI bleed (gastritis versus peptic ulcer disease -Patient was managed with Protonix drip, resolved Eliquis restarted 4. Acute hypoxic respiratory failure ?Chest x-ray obtained demonstrated Progressive pleural parenchymal changes at the left lung base as well as increased markings in the right infrahilar region. Stable infiltrate in the peripheral aspect of the left mid lung. Patient continues to experience hypoxia. Placed on Ventimask titrated to keep saturation greater than 90. CT of the chest without contrast ordered for subsequent evaluation 5. End-stage renal disease ?Patient is on hemodialysis Wednesdays and Fridays. Consult placed to nephrology for dialysis orders 6. Clotted AV fistula ?Underwent declotting by Dr. Berry on 1119 7. Pulmonary embolism ?Patient was placed on heparin discontinued Eliquis restarted 8. Anemia ?Secondary to end-stage renal disease resolved 8. Essential hypertension ?Patient antihypertensives currently on hold Patient Problems: Active and Suspected Problems (Last Reviewed 01/09/20 @ 09:17 by Alisha Her) GI bleed (Acute) ESRD (end stage renal disease) on dialysis (Acute) Hypotension (Acute) Severe anemia (Acute) Problem with dialysis access (Acute) Objective: GENERAL: cooperative HEENT: Atraumatic; EYES; Anicteric, Normal Conjunctiva NECK; supple, normal thyroid, RESPIRATORY: Diminished to auscultation CARDIOVASCULAR: Regular S1 S2, GI: soft, normoactive bowel sounds, : No Renal angle tenderness; EXTREMITIES: No edema, no clubbing, MUSCULOSKELETAL: no muscle waisting NEURO: Awake; no lateralizing signs. SKIN: No Rash PSYCH; Flat affect - Physical Exam Vitals/I&O's: Vital Signs Temp Pulse Resp BP Pulse Ox 98.3 F 76 18 98/52 L 95 06/16/20 09:15 06/16/20 09:15 06/16/20 09:15 06/16/20 09:15 06/16/20 09:15 Oxygen Flow Rate (L/min) 4 Oxygen Delivery Method Nasal Cannula Weight: 55.2 kg Body Mass Index (BMI) 22.3 Intake and Output for Last 24 Hours 06/14/20 06/15/20 06/16/20 23:59 23:59 23:59 Intake Total 1366.53 / 1366.53 490 / 590 200 / 200 Output Total 3000 / 3000 Balance 1366.53 / 1366.53 -2510 / -2410 200 / 200 Laboratory Results 06/15/20 12:15: POC Glucose 362 H 06/15/20 16:11: POC Glucose 173 H 06/15/20 21:12: POC Glucose 241 H 06/16/20 05:20: WBC 10.7, RBC 3.53 L, Hgb 10.2 L, Hct 31.8 L, MCV 90.1, MCH 28.9, MCHC 32.1, RDW Std Deviation 54.8 H, RDW Coeff of Mamta 17.1 H, Plt Count 232, MPV 11.1 06/16/20 05:20: Sodium 137, Potassium 4.3, Chloride 100, Carbon Dioxide 24.0, Anion Gap 13, BUN 54 H, Creatinine 5.90 H, Estim Creat Clear Calc 7.28, Est GFR (MDRD) Af Amer 9 L, Est GFR (MDRD) Non-Af 8 L, BUN/Creatinine Ratio 9.2 L, Glucose 196 H, Calcium 7.5 L, Magnesium 2.1 06/16/20 06:45: POC Glucose 221 H Current Medications Acetaminophen (Acetaminophen 325 Mg Tablet) 650 mg PO Q6H PRN PRN PRN Reason: Pain 1-10 or Fever Last Admin: 06/16/20 00:25 Dose: 650 mg Documented by: Albuterol/Ipratropium (Ipratropium/Albuterol Sulfate 3 Ml Ampul.Neb) 3 ml INHALATION Q4H.RT SONIA Last Admin: 06/16/20 10:16 Dose: 3 ml Documented by: Apixaban (Apixaban 2.5 Mg Tablet) 2.5 mg PO BID SONIA Last Admin: 06/16/20 09:18 Dose: 2.5 mg Documented by: Carvedilol (Carvedilol 12.5 Mg Tablet) 12.5 mg PO BID SONIA Last Admin: 06/16/20 09:36 Dose: Not Given Documented by: Dextrose (Dextrose 50%-Water 25 Gm/50 Ml Disp.Syrin) 0 gm IV X1 PRN; Protocol PRN Reason: Hypoglycemia Glucagon (Glucagon 1 Mg/Ml Syringe) 1 mg IM .X1 PRN PRN Reason: Hypoglycemia Sodium Chloride () 250 mls @ 15 mls/hr IV .[id number] PRN PRN Reason: Saline Flush Sodium Chloride () 250 mls @ 15 mls/hr IV .[id number] PRN PRN Reason: Additional IVPB Infusion Levofloxacin (Levaquin Iv) 500 mg in 100 mls @ 100 mls/hr IV Q48H [facility] Insulin Human Lispro (Insulin Lispro 100 Unit/Ml Insuln.Pen) 0 unit SC ACHS [facility]; Protocol Last Admin: 06/16/20 06:47 Dose: 2 units Documented by: Multivit/Ca Carb/B Cmplx/FA/Prenat (Folic Acid/Vitamin B Comp W-C 1 Capsule) 1 capsule PO DAILYCM [facility] Last Admin: 06/16/20 09:18 Dose: 1 capsule Documented by: Pantoprazole Sodium (Pantoprazole Sodium 40 Mg Tablet) 40 mg PO BID [facility] Last Admin: 06/16/20 09:18 Dose: 40 mg Documented by: Prochlorperazine Edisylate (Prochlorperazine 10 Mg/2 Ml Vial) 5 mg IV Q6H PRN PRN PRN Reason: NAUSEA/VOMITING Last Admin: 06/14/20 18:48 Dose: 5 mg Documented by: Sevelamer Carbonate (Sevelamer Carbonate 800 Mg Tablet) 800 mg PO TIDCM [facility] Last Admin: 06/16/20 09:18 Dose: 800 mg Documented by: Sodium Chloride (0.9% Saline Lock 10 Ml Syringe) 10 - 40 ml IV UD PRN PRN Reason: SALINE FLUSH Last Admin: 06/16/20 09:19 Dose: 10 ml Documented by: Discharge Diet: Renal Diet Discharge Activity: Return to Normal Activity Home Medications: Medications to take at Discharge Carvedilol [Coreg (Beta Hal)] 12.5 mg PO BID 05/16/17 apixaban 2.5 mg tablet 2.5 mg PO BID 06/13/19 atorvastatin 10 mg tablet 10 mg PO DAILY 06/13/19 omeprazole 20 mg capsule,delayed release 20 mg PO DAILY 06/13/19 sevelamer carbonate 800 mg tablet 800 mg PO TIDCM tab 06/13/19 Folic Acid/Vit B Complex and C [Renal-Martin Tablet] 0.8 mg PO DAILY 08/07/19 Insulin Aspart [Novolog Flexpen] 8 units SQ DINNER 06/11/20 Insulin Aspart [Novolog Flexpen] 15 units SQ BREAKFAST 06/11/20 Levofloxacin [Levaquin] 500 mg PO QODAY #4 tab 06/16/20 Following Prescriptions Were Given to Patient: Levofloxacin [Levaquin] 500 mg PO QODAY #4 tab Transmission Status: Pending to [id number] Primary Care Physician: Ginna Pineda MD [Primary Care Provider] - Please follow up with your Primary Care Physician in: In 1 to 2 weeks Disposition: Home Minutes spent on discharge:: 45 Patient Condition:: Stable Medical Necessity - Tobacco Use Smoking Status: Current every day smoker Tobacco Use: Non-smoker Meaningful Use Info Meaningful Use Diagnoses (Choose all that apply): None applicable Inpatient E&M: 22594 Disch Hosp
--- NOTE | 2020-06-16 11:08 | PCM.PN.HOSP ---
Patient Problems: Active and Suspected Problems (Last Reviewed 01/09/20 @ 09:17 by Alisha Her) GI bleed (Acute) ESRD (end stage renal disease) on dialysis (Acute) Hypotension (Acute) Severe anemia (Acute) Problem with dialysis access (Acute) Reason for Visit: Pneumonia Lung mass Hypotension Anemia secondary to acute blood loss anemia End-stage renal disease Subjective: Patient is a 60-year-old lady with history of end-stage renal disease on hemodialysis admitted with melenic stools, severe anemia and hypotension patient had recently been admitted with pulmonary embolism and discharged on Eliquis CT of the chest ordered on 06/15/2020 as a result of persistent hypoxia demonstrated 2.4 cm x 2.3 cm x 2.9 cm mass in the peripheral lateral aspect of the left upper lobe. Small bilateral effusions left greater than right with bibasilar infiltrates or prominent on the left side. There is also evidence of focal infiltrate in the right middle lobe. Patient subsequently started on Levaquin. Case discussed with pulmonary medicine Objective: GENERAL: cooperative but dyspneic at rest HEENT: Atraumatic; EYES; Anicteric, Normal Conjunctiva NECK; supple, normal thyroid, RESPIRATORY: Diminished to auscultation CARDIOVASCULAR: Regular S1 S2, GI: soft, normoactive bowel sounds, : No Renal angle tenderness; EXTREMITIES: No edema, no clubbing, MUSCULOSKELETAL: no muscle waisting NEURO: Awake; no lateralizing signs. SKIN: No Rash PSYCH; Flat affect Vitals/I&O's: Vital Signs Temp Pulse Resp BP Pulse Ox 98.3 F 76 18 98/52 L 95 06/16/20 09:15 06/16/20 09:15 06/16/20 09:15 06/16/20 09:15 06/16/20 09:15 Oxygen Flow Rate (L/min) 4 Oxygen Delivery Method Nasal Cannula Weight: 55.2 kg Body Mass Index (BMI) 22.3 Intake and Output for Last 24 Hours 06/14/20 06/15/20 06/16/20 23:59 23:59 23:59 Intake Total 1366.53 / 1366.53 490 / 590 200 / 200 Output Total 3000 / 3000 Balance 1366.53 / 1366.53 -2510 / -2410 200 / 200 Laboratory Results 06/15/20 12:15: POC Glucose 362 H 06/15/20 16:11: POC Glucose 173 H 06/15/20 21:12: POC Glucose 241 H 06/16/20 05:20: WBC 10.7, RBC 3.53 L, Hgb 10.2 L, Hct 31.8 L, MCV 90.1, MCH 28.9, MCHC 32.1, RDW Std Deviation 54.8 H, RDW Coeff of Mamta 17.1 H, Plt Count 232, MPV 11.1 06/16/20 05:20: Sodium 137, Potassium 4.3, Chloride 100, Carbon Dioxide 24.0, Anion Gap 13, BUN 54 H, Creatinine 5.90 H, Estim Creat Clear Calc 7.28, Est GFR (MDRD) Af Amer 9 L, Est GFR (MDRD) Non-Af 8 L, BUN/Creatinine Ratio 9.2 L, Glucose 196 H, Calcium 7.5 L, Magnesium 2.1 06/16/20 06:45: POC Glucose 221 H Current Medications Acetaminophen (Acetaminophen 325 Mg Tablet) 650 mg PO Q6H PRN PRN PRN Reason: Pain 1-10 or Fever Last Admin: 06/16/20 00:25 Dose: 650 mg Documented by: Albuterol/Ipratropium (Ipratropium/Albuterol Sulfate 3 Ml Ampul.Neb) 3 ml INHALATION Q4H.RT [facility] Last Admin: 06/16/20 10:16 Dose: 3 ml Documented by: Apixaban (Apixaban 2.5 Mg Tablet) 2.5 mg PO BID [facility] Last Admin: 06/16/20 09:18 Dose: 2.5 mg Documented by: Carvedilol (Carvedilol 12.5 Mg Tablet) 12.5 mg PO BID [facility] Last Admin: 06/16/20 09:36 Dose: Not Given Documented by: Dextrose (Dextrose 50%-Water 25 Gm/50 Ml Disp.Syrin) 0 gm IV X1 PRN; Protocol PRN Reason: Hypoglycemia Glucagon (Glucagon 1 Mg/Ml Syringe) 1 mg IM .X1 PRN PRN Reason: Hypoglycemia Sodium Chloride () 250 mls @ 15 mls/hr IV .[id number] PRN PRN Reason: Saline Flush Sodium Chloride () 250 mls @ 15 mls/hr IV .[id number] PRN PRN Reason: Additional IVPB Infusion Levofloxacin (Levaquin Iv) 500 mg in 100 mls @ 100 mls/hr IV Q48H [facility] Insulin Human Lispro (Insulin Lispro 100 Unit/Ml Insuln.Pen) 0 unit SC ACHS [facility]; Protocol Last Admin: 06/16/20 06:47 Dose: 2 units Documented by: Multivit/Ca Carb/B Cmplx/FA/Prenat (Folic Acid/Vitamin B Comp W-C 1 Capsule) 1 capsule PO DAILYCM [facility] Last Admin: 06/16/20 09:18 Dose: 1 capsule Documented by: Pantoprazole Sodium (Pantoprazole Sodium 40 Mg Tablet) 40 mg PO BID [facility] Last Admin: 06/16/20 09:18 Dose: 40 mg Documented by: Prochlorperazine Edisylate (Prochlorperazine 10 Mg/2 Ml Vial) 5 mg IV Q6H PRN PRN PRN Reason: NAUSEA/VOMITING Last Admin: 06/14/20 18:48 Dose: 5 mg Documented by: Sevelamer Carbonate (Sevelamer Carbonate 800 Mg Tablet) 800 mg PO TIDCM [facility] Last Admin: 06/16/20 09:18 Dose: 800 mg Documented by: Sodium Chloride (0.9% Saline Lock 10 Ml Syringe) 10 - 40 ml IV UD PRN PRN Reason: SALINE FLUSH Last Admin: 06/16/20 09:19 Dose: 10 ml Documented by: STROKE Vital Signs/Narrative: Vital Signs Temp Pulse Resp BP Pulse Ox 06/16/20 09:15 98.3 F 76 18 98/52 L 95 Medical Necessity - Tobacco Use Smoking Status: Current every day smoker Tobacco Use: Non-smoker Assessment/Plan All Active Problems (Last Reviewed 01/09/20 @ 09:17 by Alisha Her) GI bleed (Acute) ESRD (end stage renal disease) on dialysis (Acute) Hypotension (Acute) Severe anemia (Acute) Problem with dialysis access (Acute) Patient is a 60-year-old lady with history of end-stage renal disease on hemodialysis admitted with melenic stools, severe anemia and hypotension patient had recently been admitted with pulmonary embolism and discharged on Eliquis 1. Hemorrhagic shock ?Secondary to significant GI bleed patient was transfused with a total of 4 unit PRBC -06/16/2020; hemorrhagic shock resolved. Patient blood pressure however remains relatively low with systolic blood pressure in the 90s patient is on carvedilol held 2. Anemia secondary to acute blood loss anemia from GI bleed ?Patient was transfused a total of 4 unit PRBC 3. Acute GI bleed suspected to be secondary to upper GI bleed (gastritis versus peptic ulcer disease -Patient was managed with Protonix drip, resolved Eliquis restarted 4. Acute hypoxic respiratory failure ?Chest x-ray obtained demonstrated Progressive pleural parenchymal changes at the left lung base as well as increased markings in the right infrahilar region. Stable infiltrate in the peripheral aspect of the left mid lung. Patient continues to experience hypoxia. Placed on Ventimask titrated to keep saturation greater than 90. CT of the chest without contrast ordered for subsequent evaluation - CT of the chest ordered on 06/15/2020 as a result of persistent hypoxia demonstrated 2.4 cm x 2.3 cm x 2.9 cm mass in the peripheral lateral aspect of the left upper lobe. Small bilateral effusions left greater than right with bibasilar infiltrates or prominent on the left side. There is also evidence of focal infiltrate in the right middle lobe. Patient subsequently started on Levaquin. Case discussed with pulmonary medicine 5. Lung mass -CT demonstrated 2.4 cm x 2.3 cm x 2.9 cm mass in the peripheral lateral aspect of the left upper lobe. Pulmonary on case definitive management deferred 6. End-stage renal disease ?Patient is on hemodialysis Wednesdays and Fridays. Consult placed to nephrology for dialysis orders 7. Clotted AV fistula ?Underwent declotting by Dr. Berry on 1120 8. Pulmonary embolism ?Patient was placed on heparin discontinued Eliquis restarted 9. Anemia ?Secondary to end-stage renal disease resolved 10. Essential hypertension ?Patient antihypertensives currently on hold -. DVT prophylaxis ?On Eliquis Inpatient E&M: [id number] [facility] Hosp L3
--- NOTE | 2020-06-16 11:26 | PHA.DC.MC ---
Pharmacy Service has performed discharge medication reconciliation and counseling for this patient. 1. LEVOFLOXACIN 500MG PO QODAY X 4 DOSES The patient's discharge medication list was reviewed for discrepancies and discrepancies were resolved. Home Medications Carvedilol [Coreg (Beta Hal)] 12.5 mg PO BID 05/16/17 apixaban 2.5 mg tablet 2.5 mg PO BID 06/13/19 atorvastatin 10 mg tablet 10 mg PO DAILY 06/13/19 omeprazole 20 mg capsule,delayed release 20 mg PO DAILY 06/13/19 sevelamer carbonate 800 mg tablet 800 mg PO TIDCM tab 06/13/19 Folic Acid/Vit B Complex and C [Renal-Martin Tablet] 0.8 mg PO DAILY 08/07/19 Insulin Aspart [Novolog Flexpen] 8 units SQ DINNER 06/11/20 Insulin Aspart [Novolog Flexpen] 15 units SQ BREAKFAST 06/11/20 Levofloxacin [Levaquin] 500 mg PO QODAY #4 tab 06/16/20 The patient was counseled on the following discharge medications and changes in medications for homegoing were reviewed. The Reason for Use, instructions for use, and potential side effects were reviewed for all new medications. The patient's questions regarding all of their medications were answered. The patient was able to verbally demonstrate an understanding of their discharge medications.
[2020-06-16 11:36] LABS: Bedside Glucose 351 mg/dL (70-110)
--- NOTE | 2020-06-16 14:57 | CASEMGMT ---
Per Cornelia BELTRE, pt does not qualify for increased home oxygen need at this time. Pt is maintaining appropriate sats on her 3liters continuous at this time. Pt states no further questions/concerns/needs at this time and states no concerns with going home at this time. Ethan BELTRE CM
--- NOTE | 2020-06-19 16:14 | DS.PCM_ITS ---
Discharge Date and Diagnosis - Problem List Patient Problems: Active and Suspected Problems (Last Reviewed 01/09/20 @ 09:17 by Alisha Her) GI bleed (Acute) ESRD (end stage renal disease) on dialysis (Acute) Hypotension (Acute) Severe anemia (Acute) Problem with dialysis access (Acute) Date of Admission: 06/11/20 Date of Discharge: 06/19/20 - Primary Discharge Diagnosis Acute Problems: Active Problems (Last Reviewed 01/09/20 @ 09:17 by Alisha Her) GI bleed (Acute) ESRD (end stage renal disease) on dialysis (Acute) Hypotension (Acute) Severe anemia (Acute) Problem with dialysis access (Acute) Hospital Course and Treatment Imaging Results: Clinical Impression(s) from Imaging Studies Chest X-Ray 06/11/20 16:55 IMPRESSION: Poorly defined pulmonary opacity of the mid left lung and atelectasis or infiltrate in the left lung base with small effusion. Pneumonic infiltrates are possible. Electronically Signed: Sukhdeep Corbin MD at 18:52 EST , Service support , Chest X-Ray 06/12/20 09:25 IMPRESSION: Progressive pleural parenchymal changes at the left lung base as well as increased markings in the right infrahilar region. Stable infiltrate in the peripheral aspect of the left mid lung. Electronically Signed: Kleber Oates, at 10:48 EST , Service support , Chest CT 06/15/20 13:31 IMPRESSION: 2.4 cm x 2.3 cm x 2.9 cm mass in the peripheral lateral aspect of the left upper lobe. Small bilateral effusions left greater than right with bibasilar infiltrates or prominent on the left side. There is also evidence of focal infiltrate in the right middle lobe. Electronically Signed: Kleber Oates, at 14:47 EST , Service support , Summary of Care Provided: Patient is a 60-year-old lady with history of end-stage renal disease on hemodialysis admitted with melenic stools, severe anemia and hypotension patient had recently been admitted with pulmonary embolism and discharged on Eliquis 1. Hemorrhagic shock ?Secondary to significant GI bleed patient was transfused with a total of 4 unit PRBC -06/16/2020; hemorrhagic shock resolved. Patient blood pressure however remains relatively low with systolic blood pressure in the 90s patient is on carvedilol held 2. Anemia secondary to acute blood loss anemia from GI bleed ?Patient was transfused a total of 4 unit PRBC 3. Acute GI bleed suspected to be secondary to upper GI bleed (gastritis versus peptic ulcer disease -Patient was managed with Protonix drip, resolved Eliquis restarted 4. Acute hypoxic respiratory failure ?Chest x-ray obtained demonstrated Progressive pleural parenchymal changes at the left lung base as well as increased markings in the right infrahilar region. Stable infiltrate in the peripheral aspect of the left mid lung. Patient continues to experience hypoxia. Placed on Ventimask titrated to keep saturation greater than 90. CT of the chest without contrast ordered for subsequent evaluation - CT of the chest ordered on 06/15/2020 as a result of persistent hypoxia demonstrated 2.4 cm x 2.3 cm x 2.9 cm mass in the peripheral lateral aspect of the left upper lobe. Small bilateral effusions left greater than right with bibasilar infiltrates or prominent on the left side. There is also evidence of focal infiltrate in the right middle lobe. Patient subsequently started on Levaquin. Case discussed with pulmonary medicine 5. Lung mass -CT demonstrated 2.4 cm x 2.3 cm x 2.9 cm mass in the peripheral lateral aspect of the left upper lobe. 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 6. End-stage renal disease ?Patient is on hemodialysis Wednesdays and Fridays. Consult placed to nephrology for dialysis orders 7. Clotted AV fistula ?Underwent declotting by Dr. Berry on 0 8. Pulmonary embolism ?Patient was placed on heparin discontinued Eliquis restarted 9. Anemia ?Secondary to end-stage renal disease resolved 10. Essential hypertension ?Patient antihypertensives currently on hold -. DVT prophylaxis ?On Eliquis Patient Problems: Active and Suspected Problems (Last Reviewed 01/09/20 @ 09:17 by Alisha Her) GI bleed (Acute) ESRD (end stage renal disease) on dialysis (Acute) Hypotension (Acute) Severe anemia (Acute) Problem with dialysis access (Acute) - Physical Exam Vitals/I&O's: Vital Signs Temp Pulse Resp BP Pulse Ox 98.0 F 78 18 129/59 H 91 06/16/20 14:50 06/16/20 15:00 06/16/20 14:50 06/16/20 14:50 06/16/20 14:50 Oxygen Flow Rate (L/min) [ 3 AMBULATION with Oxygen] Oxygen Flow Rate (L/min) 3 Oxygen Delivery Method Nasal Cannula Weight: 55.2 kg Body Mass Index (BMI) 22.3 General: Alert HEENT: Atraumatic Lungs: Diminished Psych/Mental Status: Normal Affect Discharge Diet: Renal Diet Home Medications: Medications to take at Discharge Carvedilol [Coreg (Beta Hal)] 12.5 mg PO BID 05/16/17 apixaban 2.5 mg tablet 2.5 mg PO BID 06/13/19 atorvastatin 10 mg tablet 10 mg PO DAILY 06/13/19 omeprazole 20 mg capsule,delayed release 20 mg PO DAILY 06/13/19 sevelamer carbonate 800 mg tablet 800 mg PO TIDCM tab 06/13/19 Folic Acid/Vit B Complex and C [Renal-Martin Tablet] 0.8 mg PO DAILY 08/07/19 Insulin Aspart [Novolog Flexpen] 8 units SQ DINNER 06/11/20 Insulin Aspart [Novolog Flexpen] 15 units SQ BREAKFAST 06/11/20 Levofloxacin [Levaquin] 500 mg PO QODAY #4 tab 06/16/20 Following Prescriptions Were Given to Patient: Levofloxacin [Levaquin] 500 mg PO QODAY #4 tab Transmission Status: Received by [id number] Primary Care Physician: Ginna Pineda MD [Primary Care Provider] - Please follow up with your Primary Care Physician in: In 1 to 2 weeks Disposition: Home Minutes spent on discharge:: 45 Patient Condition:: Stable Medical Necessity - Tobacco Use Smoking Status: Current every day smoker Tobacco Use: Non-smoker Meaningful Use Info Meaningful Use Diagnoses (Choose all that apply): None applicable Inpatient E&M: 98379 Disch Hosp
== END 2020-06-16 16:52 | disposition home or self-care (01) | DRG 377 ==
LOC: PCU 16:38 → ICU 18:58 → PCU 06-12 09:33 → ICU 06-13 01:04 → PCU 06-13 22:35
PROVIDERS: Internal Medicine Critical Care Medicine; Internal Medicine Nephrology; Surgery; Admitting Provider Internal Medicine; PCP Student in an Organized Health Care Education/Training Program; Visit Provider Internal Medicine
PROC: 0DJ08ZZ Inspection of Upper Intestinal Tract, Via Natural or Artificial Opening Endoscopic (ICD-10-PCS; CPT 43235; principal; 2020-06-12 13:40)
DX: K92.1 Melena (principal); N18.6 End stage renal disease; R57.8 Other shock; J18.9 Pneumonia, unspecified organism; R57.1 Hypovolemic shock; J96.21 Acute and chronic respiratory failure with hypoxia; D62 Acute posthemorrhagic anemia; I12.0 Hypertensive chronic kidney disease with stage 5 chronic kidney disease or end stage renal disease; J90 Pleural effusion, not elsewhere classified; J98.11 Atelectasis; J44.0 Chronic obstructive pulmonary disease with (acute) lower respiratory infection; T82.868A Thrombosis due to vascular prosthetic devices, implants and grafts, initial encounter; T82.858A Stenosis of other vascular prosthetic devices, implants and grafts, initial encounter; Y83.2 Surgical operation with anastomosis, bypass or graft as the cause of abnormal reaction of the patient, or of later complication, without mention of misadventure at the time of the procedure; D63.1 Anemia in chronic kidney disease; K21.9 Gastro-esophageal reflux disease without esophagitis; E78.00 Pure hypercholesterolemia, unspecified; E87.5 Hyperkalemia; I95.9 Hypotension, unspecified; R91.8 Other nonspecific abnormal finding of lung field; F17.200 Nicotine dependence, unspecified, uncomplicated; Z99.2 Dependence on renal dialysis; Z86.74 Personal history of sudden cardiac arrest; Z86.711 Personal history of pulmonary embolism; Z90.49 Acquired absence of other specified parts of digestive tract; Z79.4 Long term (current) use of insulin; Z79.01 Long term (current) use of anticoagulants; Z79.82 Long term (current) use of aspirin; Z79.02 Long term (current) use of antithrombotics/antiplatelets; Z99.81 Dependence on supplemental oxygen; Z79.899 Other long term (current) drug therapy
CPT/HCPCS: 36415; 36600; 36902; 71045; 71250; 76937; 80048; 80053; 82803; 82962; 83735; 85025; 85027; 85730; 86850; 86900; 86901; 86920; 86922; 87340; 87635; 90937; 94640; 97110; 97116; 97162; 97166; 97530; 99251; 99406; J7030; J7040; P9016; Q9967; A4216; C1725; C1769; G0257; G0463; J2405; Q5106; U0002